=== PATIENT | male | born 1935 | race Caucasian/White ===

== ENCOUNTER 2017-07-14 09:48 | Inpatient (IN) | payer OTHER, MEDICARE ==
[~2017-07-14] VITALS: Ht 177.8 cm; Wt 104.3 kg
[2017-07-14] VITALS (9 sets, daily range): BP systolic 107–200; BP diastolic 71–90; PULSE 34–61; RESP 15–20; TEMP 96.3–98.7; O2SAT 96–98
[~2017-07-14 09:48] MED LIST: AMLO10TA2 PO; ASPI-110 PO; CARV12.52 PO; CENTTAB PO; DOXA1TAB34 PO; ENAL20TA PO; FISH1000; FURO20TA PO; METF-382 PO; ROSU10 PO; VITACAP7 PO; WARF-23 PO
--- NOTE | 2017-07-14 10:23 | PD ---
HPI Chief Complaint: Stroke Alert Time Seen by Provider: 10:05 Travel History International Travel<30 days: No Contact w/Intl Traveler<30days: No History of Present Illness HPI 82yo M with PMH of afib on coumadin, CAD, presents to the ED with c/o slurred speech that started about an hour ago and still not normal. Last normal was 9: 15am. As per significant other, she was talking to him and he was talking normally and then a few minutes later, his speech was slurred. Denies any fever , chest pain, sob, n/v, abdominal pain, focal weakness or numbness. PFSH Past Medical History Hx Anticoagulant Therapy: Yes Arthritis: Yes Autoimmune Disease: No Blood Disorders: No Anxiety: No Depression: No Heart Rhythm Problems: Yes (ATRIAL FIB) Cancer: Yes (SKIN) Cardiac Catheterization: Yes (WITH 2 ANGIOPLASTIES IN 1995) Cardiovascular Problems: Yes High Cholesterol: Yes Chemotherapy: No Chest Pain: Yes Congestive Heart Failure: No Cerebrovascular Accident: No Coronary Artery Disease: Yes Diabetes: Yes (TYPE II) Diminished Hearing: No Endocrine: Yes Gastrointestinal Disorders: Yes (ESOPHAGEAL STRICTURE, ESOPHAGEAL DILITATION X2 ) Glaucoma: No Genitourinary: Yes (URINE RETENTION) Hepatitis: No Hiatal Hernia: Yes Heparin Induced Thrombocytopen: No Hypertension: Yes Immune Disorder: No Implanted Vascular Access Dvce: No Musculoskeletal: Yes (ARTHRITIS) Neurologic: No Psychiatric: No Reproductive: No Respiratory: No (SNORING) Immunizations Current: No Myocardial Infarction: Yes (X 3) Radiation Therapy: No Sickle Cell Disease: No Thyroid Disease: No PNEUMOCCOCAL Vaccine (Year): 2009 Past Surgical History Abdominal Surgery: No AICD: No Cardiac Surgery: Yes (4 VESSEL CABG 2004,ANGIOPLASTIES) Coronary Artery Bypass Graft: Yes (X 4 IN 2004) Ear Surgery: No Endocrine Surgery: No Eye Surgery: No Genitourinary Surgery: Yes (PROSTATE) Gynecologic Surgery: No Neurologic Surgery: No Oral Surgery: Yes (TUMOR REMOVED FROM GUM, TEETH REMOVED) Pacemaker: No Thoracic Surgery: No Other Surgery: Yes Social History Alcohol Use: No Tobacco Use: No (quit 40 years ago) Substance Use: No Allergies-Medications (Allergen,Severity, Reaction): Coded Allergies: *MDRO Multi-Drug Resistant Organism (Unverified Adverse Reaction, Unknown , 08/27/16) Acinetobacter baumannii Reported Meds & Prescriptions Reported Meds & Active Scripts Active Reported Allopurinol 300 Mg Tab 150 Mg PO DAILY Glipizide 5 Mg Tab 5 Mg PO DAILY Take 30 minutes before a meal Metformin ER (Metformin HCl) 1,000 Mg Cyndi 1,000 Mg PO BID With evening meal Crestor (Rosuvastatin Calcium) 10 Mg Tab 10 Mg PO DAILY Amlodipine (Amlodipine Besylate) 10 Mg Tab 10 Mg PO DAILY Carvedilol 12.5 Mg Tab 12.5 Mg PO BID Warfarin 5 Mg Tab 5 Mg PO DAILY Enalapril (Enalapril Maleate) 20 Mg Tab 40 Mg PO DAILY Aspirin 81 (Aspirin) 81 Mg Tabdr 81 Mg PO DAILY Centrum Silver (Multiple Vitamins W/ Minerals) 1 Tab 1 Tab PO DAILY Fish Oil (Garrison-3 Fatty Acids) 1,000 Mg Cap B Complex (B-Complex Vitamins) 1 Cap 1 Cap PO DAILY Doxazosin (Doxazosin Mesylate) 4 Mg Tab 4 Mg PO DAILY Review of Systems Except as stated in HPI: all other systems reviewed are Neg Physical Exam Narrative GENERAL: 82yo M not in distress. SKIN: Focused skin assessment warm/dry. HEAD: Atraumatic. Normocephalic. EYES: Pupils equal and round. No scleral icterus. No injection or drainage. ENT: No nasal bleeding or discharge. Mucous membranes pink and moist. NECK: Trachea midline. No JVD. CARDIOVASCULAR: Regular rate and rhythm. No murmur appreciated. RESPIRATORY: No accessory muscle use. Clear to auscultation. Breath sounds equal bilaterally. GASTROINTESTINAL: Abdomen soft, non-tender, nondistended. MUSCULOSKELETAL: No obvious deformities. No clubbing. No cyanosis. No edema. NEUROLOGICAL: Awake and alert. No obvious cranial nerve deficits. Motor grossly within normal limits. Sensation equal. Visual rendon equal bilaterally. Mild dysarthria. NIH stroke scale 1. PSYCHIATRIC: Appropriate mood and affect; insight and judgment normal. Data Data Last Documented VS Vital Signs Date Time Temp Pulse Resp B/P (MAP) Pulse Ox O2 Delivery O2 Flow Rate FiO2 07/14/17 10:46 48 15 192/83 (119) 07/14/17 10:08 98 21 07/14/17 09:[address] Brain W/O Iv Contrast(Rout) (07/14/17 ) Complete Blood Count With Diff (07/14/17 10:05) Basic Metabolic Panel (Bmp) (07/14/17 10:05) Prothrombin Time / Inr (Pt) (07/14/17 10:05) Act Partial Throm Time (Ptt) (07/14/17 10:05) Blood Glucose (07/14/17 10:05) Electrocardiogram (07/14/17 ) Hydralazine Inj (Apresoline Inj) (07/14/17 10:45) Troponin I (07/14/17 10:46) Nih Stroke Scale - Nihss .On admission and discharge (07/14/17 10:47) Case Management Consult (07/14/17 ) Activity Bed Rest (07/14/17 10:47) Nursing Bedside Swallow Assess .ONCE (07/14/17 10:47) Scd Bilateral/Knee High SAMI.QSHIFT (07/14/17 10:47) Diet Npo (07/14/17 Lunch) Hemoglobin (Hgb) A1c (07/14/17 10:47) Lipid Profile (07/15/17 06:00) Us Carotid Arteries Comp Bilat (07/14/17 ) Mra Brain W/O Contrast (Cow) (07/14/17 ) Mri Brain W/O Contrast (07/14/17 ) Echo 2d Comp With Doppler (07/14/17 ) Resp Oxygen Elia C Titrat 1-4 L (07/14/17 ) ^ Hold Medication (07/14/17 10:47) Sodium Chloride 0.9% Flush (Ns Flush) (07/14/17 21:00) Sodium Chloride 0.9% Flush (Ns Flush) (07/14/17 11:00) Sodium Chlor 0.9% 1000 Ml Inj (Ns 1000 M (07/14/17 10:47) Aspirin Chew (Aspirin Chew) (07/14/17 11:00) Bedside Glucose SAMI.CSUGAR (07/14/17 10:47) ^ Discontinue Insulin Orders (07/14/17 10:47) Insulin Aspart Supplemtl Scale (Novolog (07/14/17 12:00) Dextrose 50% In Ronda (Vial) Inj (D50w (Vi (07/14/17 11:00) Glucagon Inj (Glucagon Inj) (07/14/17 11:00) Consult Rehab Medicine (07/14/17 10:47) Business Developer / Telemetry SAMI.Q8H (07/14/17 10:47) Consult Stroke Navigator (07/14/17 ) Warfarin (Coumadin) (07/14/17 16:00) (Hub Use Only)Inp Phy Cons/Ref (07/14/17 ) Admit To Inpatient (07/14/17 ) Vital Signs (Adult) SAMI.Q4H (07/14/17 11:11) Activity Oob With Assistance (07/14/17 11:11) Business Developer / Telemetry SAMI.Q8H (07/14/17 11:11) Inpatient Certification (07/14/17 ) Admit Order (Ed Use Only) (07/14/17 11:12) Labs Laboratory Tests Test 07/14/17 10:23 White Blood Count 7.3 TH/MM3 Red Blood Count 5.39 MIL/MM3 Hemoglobin 15.0 GM/DL Hematocrit 45.7 % Mean Corpuscular Volume 84.8 FL Mean Corpuscular Hemoglobin 27.9 PG Mean Corpuscular Hemoglobin Concent 32.9 % Red Cell Distribution Width 15.3 % Platelet Count 176 TH/MM3 Mean Platelet Volume 8.4 FL Neutrophils (%) (Auto) 68.8 % Lymphocytes (%) (Auto) 16.7 % Monocytes (%) (Auto) 6.8 % Eosinophils (%) (Auto) 3.6 % Basophils (%) (Auto) 4.1 % Neutrophils # (Auto) 5.0 TH/MM3 Lymphocytes # (Auto) 1.2 TH/MM3 Monocytes # (Auto) 0.5 TH/MM3 Eosinophils # (Auto) 0.3 TH/MM3 Basophils # (Auto) 0.3 TH/MM3 CBC Comment DIFF FINAL Differential Comment Prothrombin Time 31.8 SEC Prothromb Time International Ratio 2.8 RATIO Activated Partial Thromboplast Time 34.3 SEC Blood Urea Nitrogen 22 MG/DL Creatinine 1.20 MG/DL Random Glucose 124 MG/DL Calcium Level 8.7 MG/DL Sodium Level 138 MEQ/L Potassium Level 4.2 MEQ/L Chloride Level 103 MEQ/L Carbon Dioxide Level 27.7 MEQ/L Anion Gap 7 MEQ/L Estimat Glomerular Filtration Rate 58 ML/MIN Troponin I 0.05 NG/ML MDM Medical Decision Making Medical Screen Exam Complete: Yes Emergency Medical Condition: Yes Interpretation(s) EKG: Afib at 48bpm. Similar to prior. Q waves inferior leads. Differential Diagnosis Minor stroke vs. hypoglycemia vs. ICH Narrative Course 82yo M with afib on coumadin and CAD here with slurred speech that started about an hour prior to arrival. Stroke alert was called since pt's symptoms are still there. Discussed with Dr. Del Rosario (neurologist economics consultant) and initially do not feel he is a TPA candidate. However, after he evaluated the patient, felt that there is a very slight drift in right upper extremity and decreased dexterity in right hand. Wants to wait until INR to decide if we should initiate TPA. INR is 2.8, will not give TPA as per Dr. Del Rosario. Blood pressure is also elevated and hydralazine was cancelled because Dr. Del Rosario recommend permissive hypertensive, do not recommend treating the blood pressure unless it is very elevated such as systolic over 200. Labs reviewed, no leukocytosis. Troponin 0.05. BUN mildly elevated at 22. INR 2.8. CT brain showed moderate atherosclerotic vascular calcification, negative for acute process. Discussed with Dr. Gauthier and accepted to his service. Critical Care Narrative Aggregate critical care time was 40 minutes. Time to perform other separately billable procedures was not included in the critical care time. My time did not include minutes spent treating any other patients simultaneously or on activities that did not directly contribute to the patient's treatment. The services I provided to this patient were to treat and/or prevent clinically significant deterioration that could result in: cardiovascular collapse or . I provided critical care services requiring my management, as noted below: Chart data review, documentation time, medication orders and management, vital sign assessments/reviewing monitor data, ordering and reviewing lab tests, ordering and interpreting/reviewing x-rays and diagnostic studies, care of the patient and discussion of the patient with the admitting physicians. Diagnosis Primary Impression: CVA (cerebral vascular accident) Qualified Codes: I63.9 - Cerebral infarction, unspecified Admitting Information Admitting Physician Requests: Admit Rachel Santiago DO Jul 14, 2017 10:23
--- NOTE | 2017-07-14 10:28 | RADRPT ---
EXAM DATE/TIME: 07/14/2017 10:13 [facility] COMPARISON: No previous studies available for comparison. INDICATIONS : Stroke alert. Slurred speech. RADIATION DOSE: 62.71 CTDIvol (mGy) This report was called to Dr. Santiago 1025. MEDICAL HISTORY : Cerebrovascular disease. SURGICAL HISTORY : None. ENCOUNTER: Initial ACUITY: 1 day PAIN SCALE: 0/10 LOCATION: cranial TECHNIQUE: Multiple contiguous axial images were obtained of the head. Using automated exposure control and adj ustment of the mA and/or kV according to patient size, radiation dose was kept as low as reasonably a chievable to obtain optimal diagnostic quality images. DICOM format image data is available electro nically for review and comparison. FINDINGS: CEREBRUM: The ventricles are normal for age. No evidence of midline shift, mass lesion, hemorrhage or acute in farction. No extra-axial fluid collections are seen. POSTERIOR FOSSA: The cerebellum and brainstem are intact. The 4th ventricle is midline. The cerebellopontine angle i s unremarkable. EXTRACRANIAL: The visualized portion of the orbits is intact. SKULL: The calvaria is intact. No evidence of skull fracture. CONCLUSION: Moderate atherosclerotic vascular calcification, negative for acute process. Angel Peraza MD FACR on July 14, 2017 at 10:25 Board Certified Radiologist. This report was verified electronically.
[2017-07-14 10:31] LABS: BASOPHIL # 0.3 TH/MM3 (0-0.2); BASOPHIL % 4.1 % (0.0-2.0); EOSINOPHIL # 0.3 TH/MM3 (0-0.4); EOSINOPHIL % 3.6 % (0.0-4.0); HEMATOCRIT 45.7 % (39.0-51.0); HEMO FLAGS DIFF FINAL; LYMPH % 16.7 % (9.0-44.0); LYMPHOCYTE # 1.2 TH/MM3 (1.0-4.8); MEAN CELL VOLUME 84.8 FL (80.0-100.0); MEAN CORPUSCULAR HEMOGLOBIN 27.9 PG (27.0-34.0); MEAN CORPUSCULAR HGB CONC 32.9 % (32.0-36.0); MONO % 6.8 % (0.0-8.0); NEUT % 68.8 % (16.0-70.0); PLATELET COUNT 176 TH/MM3 (150-450); RED BLOOD COUNT 5.39 MIL/MM3 (4.50-5.90); RED CELL DISTRIBUTION WIDTH 15.3 % (11.6-17.2); WHITE BLOOD COUNT 7.3 TH/MM3 (4.0-11.0)
[2017-07-14] MEDS ORDERED: ALLO300T2 PO (10:36)
[2017-07-14] MEDS ORDERED: GLIP5TAB8 PO (10:36)
[2017-07-14 10:39] LABS: POTASSIUM 4.2 MEQ/L (3.5-5.1)
[2017-07-14 10:42] LABS: BICARBONATE 27.7 MEQ/L (21.0-32.0)
[2017-07-14 10:44] LABS: APTT (PATIENT) 34.3 SEC (24.3-30.1); INTERNATIONAL NORMALIZED RATIO 2.8 RATIO; PROTHROMBIN TIME - PATIENT 31.8 SEC (9.8-11.6)
[2017-07-14] MEDS ORDERED: hydrALAZINE HCL 20 MG/ML VIAL IV PUSH ONE (10:45)
[2017-07-14] MEDS ORDERED: DEXTROSE 50% IN WATER 50 ML VIAL(D50) IV PUSH PRN (11:00)
[2017-07-14] MEDS ORDERED: GLUCAGON 1 MG/ML VIAL OTHER PRN (11:00)
[2017-07-14] MEDS ORDERED: SODIUM CHLORIDE 0.9% FLUSH 5 ML FLUSH IV FLUSH PRN (11:00)
--- NOTE | 2017-07-14 11:13 | MB ---
cc: DINO CHEEMA M.D. DATE OF CONSULTATION: 07/14/2017 REASON FOR CONSULTATION Stroke Alert. HISTORY OF PRESENT ILLNESS Mr. Castillo is an 82-year-old man who has a history of atrial fibrillation and coronary artery disease. He was in his usual state of health until 9:15 this morning when he suddenly developed severe dysarthria. He presented to the ER as a Stroke Alert. The NIH Stroke Scale initially was 1. He denies any focal weakness or numbness, double vision or headache. PAST MEDICAL HISTORY 1. Diabetes. 2. Hyperlipidemia. 3. Coronary artery disease. 4. Coronary artery bypass procedure. 5. Hypertension. MEDICATIONS His medications at home: 1. Coumadin. He states his last INR a week ago was 2.9. 2. Metformin for diabetes. 3. Crestor. 4. Amlodipine. 5. Carvedilol. 6. Enalapril. 7. Aspirin 81 mg daily. 8. Centrum Silver. 9. Fish oil. 10.Doxazosin. 11.Lasix. ALLERGIES MDRO. NEUROLOGIC EXAMINATION VITAL SIGNS: His blood pressure is 190/95, pulse 60, respiratory rate 15, temperature 96 degrees. HIGHER CORTICAL FUNCTIONS: Alert, oriented x3. Speech is very dysarthric but not aphasic. CRANIAL NERVES: Grossly intact. MOTOR EXAM: 5/5 strength bilaterally. He does have diminished fine motor skills in the right hand and a pronator drift right upper extremity. Sensory exam intact. Reflexes 1+ symmetric. There is no Babinski present. IMAGING CT of the brain: No acute changes. He has chronic ischemic change present. LABORATORY INR 2.8, PTT 34.3. White count 7300, hemoglobin 15, hematocrit 45%, platelet count 176,000. Sodium 138, potassium 4.2, chloride 103. EKG EKG: Atrial fibrillation. IMPRESSION Acute stroke, probably left hemisphere. He is not a candidate for IV TPA because of the elevated INR from Coumadin. Because of the low NIH Stroke Scale I would not recommend advanced imaging at this time such as CTA as he is not a candidate for intervention given the minor deficits. RECOMMENDATIONS Continue him on Coumadin as well as aspirin. Will obtain further evaluation with an MRI and MRA of the brain, carotid ultrasound, echocardiogram and lipid panel. Would recommend maintaining head of bed flat for 12 hours. Could also allow permissive hypertension. MD NUBIA Garrett /10:44 AM /11:01 AM
[2017-07-14] MEDS: SODIUM CHLOR 0.9% 1000 ML INJ 1,000 ML IV SCH (11:23)
[2017-07-14] MEDS: ASPIRIN 81 MG CHEW TAB PO SCH (11:25)
[2017-07-14] MEDS: INSULIN ASPART SUPPLEMENTAL SCALE SQ SCH ×3 (12:00→21:00)
[2017-07-14] MEDS ORDERED: ASPIRIN 300 MG SUPP RECTAL ONE (12:15)
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
--- NOTE | 2017-07-14 13:40 | EKG ---
Date Performed: 07/14/2017 Time Performed: 10:45:09 PTAGE: 82 years EKG: ATRIAL FLUTTER WITH SLOW VENTRICULAR RESPONSE POSSIBLE ANTERIOR MYOCARDIAL INFARCTION ABNOR MAL ECG PREVIOUS TRACING : 08/27/2016 10.51 DOCTOR: Tony Lorenzo Interpretating Date/Time 07/14/2017 13:38:41
--- NOTE | 2017-07-14 15:00 | RADRPT ---
EXAM DATE/TIME: 07/14/2017 13:27 [facility] COMPARISON: MRI BRAIN W/O CONTRAST, October 03, 2011, 11:18. INDICATIONS : Stroke. Slurred speech. MEDICAL HISTORY : Hypertension. Carcinoma, prostate. Myocardial infarction. SURGICAL HISTORY : CABG ENCOUNTER: Initial ACUITY: 1 day PAIN SCORE: 0/10 LOCATION: head TECHNIQUE: Multiplanar, multisequence MRI of the brain was performed without contrast. FINDINGS: CEREBRUM: The ventricles are normal for age. No evidence of midline shift, mass lesion, hemorrhage or acute in farction. No extraaxial fluid collections are seen. The pituitary gland and suprasellar cistern are normal in configuration. WHITE MATTER: Moderate periventricular white matter changes are noted. POSTERIOR FOSSA: The cerebellum and brainstem are intact. The 4th ventricle is midline. The cerebellopontine angle is unremarkable. The cerebellar tonsils are normal in position. DIFFUSION IMAGING: No focal areas of restricted diffusion are seen. No evidence of acute infarction. EXTRACRANIAL: The visualized portions of the orbits and paranasal sinuses are unremarkable. CONCLUSION: Moderate periventricular changes. There is no restricted diffusion to suggest acute ischemic event Moderate motion artifact does obscure fine detail on the diffusion-weighted imaging. Angel Peraza MD FACR on July 14, 2017 at 14:57 Board Certified Radiologist. This report was verified electronically.
--- NOTE | 2017-07-14 15:13 | RADRPT ---
EXAM DATE/TIME: 07/14/2017 13:27 [facility] COMPARISON: MRA BRAIN W/O CONTRAST, October 03, 2011, 11:18. INDICATIONS : Stroke. MEDICAL HISTORY : Hypertension. Carcinoma, prostate. Myocardial infarction. SURGICAL HISTORY : CABG ENCOUNTER: Initial ACUITY: 1 day PAIN SCORE: 0/10 LOCATION: head Please note a normal MRA of the brain does not entirely exclude the possibility of a small aneurysm, nor the possibility of distal intracranial vessel disease. TECHNIQUE: 3D time of flight MRA was performed. Source images, multiplanar STS MIP, and 3D volume MIP reconstru ctions were reviewed. FINDINGS: The examination is significantly degraded by motion artifact. There is modest visualization of the major intracranial arteries out to the second-order branch vesse ls. There is no evidence for aneurysm, vessel truncation or stenosis, and no evidence for vascular m alformation. CONCLUSION: 1. No gross abnormality on this limited study. Satya Lilly Jr., MD on July 14, 2017 at 15:03 Board Certified Radiologist. This report was verified electronically.
[2017-07-14] MEDS ORDERED: WARFARIN SOD 5 MG TAB PO SCH (16:00)
[2017-07-14 16:29] LABS: HEMOGLOBIN A1a 1.1 %; HEMOGLOBIN A1b 1.8 %; HEMOGLOBIN Ao 83.8 %; HEMOGLOBIN LA1C 2.3 %; HEMOGLOBIN P3 5.9 %
--- NOTE | 2017-07-14 17:09 | RADRPT ---
EXAM DATE/TIME: 07/14/2017 16:04 [facility] COMPARISON: US CAROTID ARTERIES, October 03, 2011, 19:16. INDICATIONS : Cerebrovascular accident. MEDICAL HISTORY : Hypertension. CAD. Hypercholesterol. CHF. HI SURGICAL HISTORY : Angioplasties. Skin cancer. Esophogeal dilation. CABG. ENCOUNTER: Subsequent ACUITY: 1 day PAIN SCORE: 0/10 LOCATION: Bilateral neck PEAK SYSTOLIC VELOCITIES (cm/sec): ICA/CCA RATIO: Right: 1.2 Left: 1.0 ICA: Right: 89 Left: 69 CCA: Right: 75 Left: 72 ECA: Right: 125 Left: 74 VERTEBRAL: Right: 28 antegrade Left: 41 antegrade Elevated flow velocities and ICA/CCA ratios have been found to correlate with increased degrees of vessel stenosis, calculated as percentage of diameter relative to a normal segment of distal ICA/CCA FINDINGS: RIGHT CAROTID: There is no evidence for a hemodynamically significant carotid stenosis. Minimal int imal hyperplasia is present with scattered calcific plaque. LEFT CAROTID: There is no evidence for a hemodynamically significant carotid stenosis. Minimal inti mal hyperplasia is present with scattered calcific plaque. VERTEBRAL ARTERIES: Flow is antegrade in both vertebral arteries. MISCELLANEOUS: There are no ancillary masses or adenopathy. CONCLUSION: Negative examination for a hemodynamically significant carotid stenosis. Board Certified Radiologist. This report was verified electronically.
--- NOTE | 2017-07-14 17:14 | ECHRPT ---
Indication: cva/tia CONCLUSIONS Technically very difficult and limited study. The left ventricular systolic function appears mildly reduced with an estimated ejection fraction in the range of 45-50%. Normal left ventricular size. Wall thickness is measured at the upper limits of normal. Regional wall motion abnormalities cannot be excluded. The aortic valve is not well visualized. BP: 192 / 83 HR: 119 Rhythm: Sinus MEASUREMENTS (Male / Female) Normal Values Technical Quality:Very technically difficult study 2D ECHO LVOT Diameter 2.1 cm M-MODE LV Diastolic Diameter MM 3.8 cm 4.2 - 5.9 / 3.9 - 5.3 cm LV Systolic Diameter MM 2.9 cm LV Ejection Fraction MM Teich 48.3 % LV Cardiac Index MM Teich 1522.1 cm/minm IVS Diastolic Thickness MM 1.3 cm 0.6 - 1.0 / 0.6 - 0.9 cm LVPW Diastolic Thickness MM 1.3 cm 0.6 - 1.0 / 0.6 - 0.9 cm LV Relative Wall Thickness MM 0.7 0.24 - 0.42 / 0.22 - 0.42 LV Mass Index MM 80.1 g/m 49 - 115 / 43 - 95 g/m Aortic Root Diameter MM 3.7 cm AV Cusp Separation MM 1.9 cm DOPPLER AV Peak Velocity 129.5 cm/s AV Peak Gradient 6.7 mmHg LVOT Peak Velocity 99.7 cm/s LVOT Peak Gradient 4.0 mmHg AV Area Cont Eq pk 2.7 cm MV Area PHT 5.0 cm Mitral E Point Velocity 119.0 cm/s Mitral A Point Velocity 73.1 cm/s Mitral E to A Ratio 1.6 FINDINGS LEFT VENTRICLE The left ventricular systolic function is mildly reduced with an estimated ejection fraction in the range of 45- 50%. Normal left ventricular size. Wall thickness is measured at the upper limits of normal. Regional wall motion abnormalities cannot be excluded. RIGHT VENTRICLE Normal right ventricular size and systolic function. LEFT ATRIUM The left atrial size is normal. RIGHT ATRIUM The right atrial size is normal. ATRIAL SEPTUM Normal atrial septal thickness without atrial level shunting by limited color doppler interrogation. AORTA The aortic root and proximal ascending aorta are normal in size on limited imaging. MITRAL VALVE Structurally normal mitral valve. No mitral valve stenosis or regurgitation. AORTIC VALVE The aortic valve is not well visualized. TRICUSPID VALVE The tricuspid valve is not well visualized. PULMONARY VALVE The pulmonary valve is not well visualized. VESSELS The inferior vena cava is normal in size. PERICARDIUM No pericardial effusion. Wilmer Lundberg MD (Electronically Signed) Final Date:14 July 2017 17:13
[2017-07-14] MEDS: SODIUM CHLORIDE 0.9% FLUSH 5 ML FLUSH IV FLUSH SCH (21:00)
[2017-07-14] MEDS ORDERED: hydrALAZINE HCL 25 MG TAB PO PRN (21:45)
[2017-07-15] VITALS: BP 163/76; PULSE 40; RESP 18; TEMP 98.8; O2SAT 98
[2017-07-15] MEDS: SODIUM CHLOR 0.9% 1000 ML INJ 1,000 ML IV SCH (00:03)
[2017-07-15 04:00] VITALS: BP 179/74; PULSE 40; RESP 16; TEMP 97.8; O2SAT 98
[2017-07-15 08:00] VITALS: BP 165/91; PULSE 40; PULSE 60; RESP 16; TEMP 98.3; O2SAT 98
[2017-07-15] MEDS: INSULIN ASPART SUPPLEMENTAL SCALE SQ SCH ×2 (08:00→12:00)
[2017-07-15] MEDS: ASPIRIN 81 MG CHEW TAB PO SCH (08:54)
[2017-07-15] MEDS: SODIUM CHLORIDE 0.9% FLUSH 5 ML FLUSH IV FLUSH SCH (08:54)
[2017-07-15] MEDS ORDERED: ATORVASTATIN 40 MG TAB PO ONE (11:00)
[2017-07-15] MEDS ORDERED: ALLOPURINOL 300 MG TAB PO SCH (11:00)
[2017-07-15] MEDS ORDERED: PILL SPLITTER OTHER PRN (11:30)
[2017-07-15 11:46] LABS: HDL CHOLESTEROL 31.4 MG/DL (40.0-60.0)
[2017-07-15 12:00] VITALS: BP 164/71; PULSE 60; RESP 18; TEMP 96.7; O2SAT 97
[2017-07-15] MEDS ORDERED: ENALAPRIL MALEATE 10 MG TAB PO SCH (12:00)
[2017-07-15] MEDS ORDERED: DOXAZOSIN MESYLATE 4 MG TAB PO SCH (12:00)
[2017-07-15] MEDS ORDERED: CARVEDILOL 12.5 MG TAB PO SCH (12:00)
[2017-07-15] MEDS ORDERED: ASPI325T PO (12:23)
[2017-07-15] MEDS ORDERED: ATOR40TA16 PO (12:23)
--- NOTE | 2017-07-15 12:24 | HHI.DCPOC ---
Discharge Care Plan Diagnosis: (1) CVA (cerebral vascular accident) Goals to Promote Your Health * To prevent worsening of your condition and complications * To maintain your health at the optimal level Directions to Meet Your Goals Take your medications as prescribed Follow your dietary instruction Follow activity as directed Keep your appointments as scheduled Take your immunizations and boosters as scheduled If your symptoms worsen call your PCP, if no PCP go to Urgent Care Center or Emergency Room Smoking is Dangerous to Your Health. Avoid second hand smoke Call the 24-hour hour crisis hotline for domestic abuse at Herb Gauthier MD Jul 15, 2017 12:24
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
[2017-07-15] MEDS ORDERED: VITAMIN B COMPLEX/VIT C TAB PO SCH (13:00)
[2017-07-15] MEDS ORDERED: CARV12.52 PO (18:56)
== END 2017-07-15 13:58 | disposition home or self-care (01) | DRG 69 ==
LOC: PHED 09:48 → PHEDA 11:12 → PH3B 13:57
PROVIDERS: ADMIT Hospitalist; ATTEND Hospitalist
DX: G45.9 Transient cerebral ischemic attack, unspecified (principal); I48.2 Chronic atrial fibrillation; E11.9 Type 2 diabetes mellitus without complications; Z79.84 Long term (current) use of oral hypoglycemic drugs; Z79.01 Long term (current) use of anticoagulants; Z79.82 Long term (current) use of aspirin; R29.810 Facial weakness; R47.81 Slurred speech; I10 Essential (primary) hypertension; E78.5 Hyperlipidemia, unspecified; K21.9 Gastro-esophageal reflux disease without esophagitis; I25.10 Atherosclerotic heart disease of native coronary artery without angina pectoris; Z95.1 Presence of aortocoronary bypass graft; I25.2 Old myocardial infarction; Z85.46 Personal history of malignant neoplasm of prostate; Z87.891 Personal history of nicotine dependence
CPT/HCPCS: 70450; 70544; 70551; 80048; 80061; 82948; 83036; 84484; 85025; 85610; 85730; 93005; 93306; 93880; J7030

== ENCOUNTER 2017-12-23 21:20 | Inpatient (IN) | payer OTHER, MEDICARE ==
[~2017-12-23] VITALS: Ht 177.8 cm; Wt 110.0 kg
[~2017-12-23 21:20] MED LIST changes: +ALLO300T2 PO; -ASPI-110 PO; +ASPI-183 PO; +ATOR40TA16 PO; -FURO20TA PO; +GLIP5TAB8 PO; -ROSU10 PO
[2017-12-23 21:35] VITALS: BP 219/102; PULSE 69; RESP 18; TEMP 98.4; O2SAT 96
[2017-12-23 21:37] VITALS: BP 219/102; PULSE 62; RESP 20; O2SAT 97
[2017-12-23 21:51] VITALS: BP 223/114; PULSE 64; RESP 20
--- NOTE | 2017-12-23 22:09 | PD ---
HPI Chief Complaint: Head Injury Time Seen by Provider: 21:58 Travel History International Travel<30 days: No Contact w/Intl Traveler<30days: No Traveled to known affect area: No History of Present Illness HPI The patient is a 89-year-old male that fell at approximately 630 PM this afternoon. He was walking his dog and his dog pulled him and started chasing after another dog. He fell forward and was drank 12-15 feet and hit his head on the grass. The patient has abrasions and a slight hematoma on the right forehead. He did not lose consciousness. He denies any nausea or vomiting. He denies any focal neurologic change. He also has neck pain but denies any radiation of pain, numbness or weakness of any weeks his extremities. His last tetanus shot was definitely over 10 years ago. He denies any headache. PFSH Past Medical History Hx Anticoagulant Therapy: Yes Arthritis: Yes Atrial Fibrillation: Yes Autoimmune Disease: No Blood Disorders: No Anxiety: No Depression: No Heart Rhythm Problems: Yes Cancer: Yes (SKIN) Cardiac Catheterization: Yes (WITH 2 ANGIOPLASTIES IN 1995) Cardiovascular Problems: Yes High Cholesterol: Yes Chemotherapy: No Chest Pain: Yes Congestive Heart Failure: No Cerebrovascular Accident: No Coronary Artery Disease: Yes Diabetes: Yes (TYPE II) Diminished Hearing: No Endocrine: Yes Gastrointestinal Disorders: Yes (ESOPHAGEAL STRICTURE, ESOPHAGEAL DILITATION X2 ) Glaucoma: No Genitourinary: Yes (URINE RETENTION) Hepatitis: No Hiatal Hernia: Yes Heparin Induced Thrombocytopen: No Hypertension: Yes Immune Disorder: No Implanted Vascular Access Dvce: No Musculoskeletal: Yes (ARTHRITIS) Neurologic: No Psychiatric: No Reproductive: No Immunizations Current: No Myocardial Infarction: Yes (X 3) Radiation Therapy: No Sickle Cell Disease: No Thyroid Disease: No PNEUMOCCOCAL Vaccine (Year): 2009 Past Surgical History Abdominal Surgery: No AICD: No Cardiac Surgery: Yes (4 VESSEL CABG 2004,ANGIOPLASTIES) Coronary Artery Bypass Graft: Yes (X 4 IN 2004) Ear Surgery: No Endocrine Surgery: No Eye Surgery: No Genitourinary Surgery: Yes (PROSTATE) Gynecologic Surgery: No Insulin Pump: No Neurologic Surgery: No Oral Surgery: Yes (TUMOR REMOVED FROM GUM, TEETH REMOVED) Pacemaker: No Thoracic Surgery: No Other Surgery: Yes Social History Alcohol Use: No Tobacco Use: No (quit 40 years ago) Substance Use: No Allergies-Medications (Allergen,Severity, Reaction): Coded Allergies: No Known Allergies (Unverified Allergy, Unknown, 12/23/17) Reported Meds & Prescriptions Reported Meds & Active Scripts Active Carvedilol 12.5 Mg Tab 12.5 Mg PO BID half tab of 12.5 mg tab by mouth BID Aspirin 325 Mg Tab 325 Mg PO DAILY Atorvastatin (Atorvastatin Calcium) 40 Mg Tab 40 Mg PO HS Reported Allopurinol 300 Mg Tab 150 Mg PO DAILY Glipizide 5 Mg Tab 5 Mg PO DAILY Take 30 minutes before a meal Metformin ER (Metformin HCl) 1,000 Mg Cyndi 1,000 Mg PO DAILY With evening meal Amlodipine (Amlodipine Besylate) 10 Mg Tab 10 Mg PO DAILY Warfarin 5 Mg Tab 5 Mg PO DAILY Enalapril (Enalapril Maleate) 20 Mg Tab 40 Mg PO DAILY Fish Oil ([place]-3 Fatty Acids) 1,000 Mg Cap B Complex (B-Complex Vitamins) 1 Cap 1 Cap PO DAILY Review of Systems Except as stated in HPI: all other systems reviewed are Neg Physical Exam Narrative GENERAL: The patient is alert, oriented 3 in minimal apparent distress with his forehead abrasions. His vital signs show blood pressure 219/102 but are otherwise normal. SKIN: Focused skin assessment warm/dry. The forehead shows several abrasions, no suturable skin laceration is noted. The abrasions are about 3 x 2 cm in size. They are mostly on the right forehead. HEAD: Neither raccoon eyes nor ashford sign is present.. Normocephalic. EYES: Pupils equal and round. No scleral icterus. No injection or drainage. ENT: No nasal bleeding or discharge. Mucous membranes pink and moist. NECK: Trachea midline. No JVD. There is diffuse tenderness over the trapezius bilaterally. No posterior spinous process tenderness or deformity is present. CARDIOVASCULAR: Regular rate and rhythm. No murmur appreciated. RESPIRATORY: No accessory muscle use. Clear to auscultation. Breath sounds equal bilaterally. GASTROINTESTINAL: Abdomen soft, non-tender, nondistended. Hepatic and splenic margins not palpable. MUSCULOSKELETAL: No obvious deformities. No clubbing. No cyanosis. No edema. NEUROLOGICAL: Awake and alert. No obvious cranial nerve deficits. Motor grossly within normal limits. Normal speech. PSYCHIATRIC: Appropriate mood and affect; insight and judgment normal. Data Data Last Documented VS Vital Signs Date Time Temp Pulse Resp B/P (MAP) Pulse Ox O2 Delivery O2 Flow Rate FiO2 12/23/17 22:10 68 20 223/114 (150) 98 12/23/17 21:[address] Brain W/O Iv Contrast(Rout) (12/23/17 21:58) Ct Cerv Spine W/O Contrast (12/23/17 22:04) Enalaprilat Inj (Vasotec Inj) (12/23/17 22:30) Hydralazine Inj (Apresoline Inj) (12/23/17 22:30) Admit Order (Ed Use Only) (12/23/17 23:13) Complete Blood Count With Diff (12/23/17 23:18) Comprehensive Metabolic Panel (12/23/17 23:18) Prothrombin Time / Inr (Pt) (12/23/17 23:18) Act Partial Throm Time (Ptt) (12/23/17 23:18) Urinalysis - C+S If Indicated (12/23/17 23:18) MDM Medical Decision Making Medical Screen Exam Complete: Yes Emergency Medical Condition: Yes Medical Record Reviewed: Yes Interpretation(s) The CT of the cervical spine shows oblique fractures through the C3 vertebral body and the exuberant osteophytes anteriorly at the C2-3 level. Also exuberant fused osteophytes extending from C2-T2 with an articulation at the T1- T2 level. There is acute fracture at the C2-3 level through these osteophytes. The CT brain shows no acute intracranial abnormality, atrophy is seen and frontal scalp hematomas being worse on the right. Differential Diagnosis Scalp hematomas, scalp abrasions, skull fracture, intracranial bleed, fracture C -spine, cervical strain Narrative Course The patient has fracture C2-3. He also has scalp hematomas. I discussed the patient with Dr. Roach, the patient will be transferred to [facility] and admitted to the [facility]. Physician Communication Physician Communication I discussed the patient with Dr. Roach, the patient will be admitted to him. Diagnosis Primary Impression: Cervical spine fracture Additional Impression: Scalp hematoma Moustapha Barrera MD Dec 23, 2017 22:09
[2017-12-23 22:10] VITALS: BP 223/114; PULSE 68; RESP 20; O2SAT 98
[2017-12-23] MEDS ORDERED: ENALAPRILAT 2.5 MG/2 ML VIAL IV PUSH ONE (22:30)
[2017-12-23] MEDS ORDERED: hydrALAZINE HCL 20 MG/ML VIAL IV PUSH ONE ×2 (22:30→23:45)
--- NOTE | 2017-12-23 22:58 | RADRPT ---
EXAM DATE/TIME: 12/23/2017 22:34 [facility] COMPARISON: CT BRAIN W/O CONTRAST, July 14, 2017, 10:13. INDICATIONS : Fell while walking dog. Right frontal hematoma. RADIATION DOSE: 63.59 CTDIvol (mGy) MEDICAL HISTORY : Cardiovascular disease. Hypertension. Diabetes. Anticoagulant therapy. SURGICAL HISTORY : CABG ENCOUNTER: Initial ACUITY: 1 day PAIN SCALE: 3/10 LOCATION: Right frontal TECHNIQUE: Multiple contiguous axial images were obtained of the head. Using automated exposure control and adj ustment of the mA and/or kV according to patient size, radiation dose was kept as low as reasonably a chievable to obtain optimal diagnostic quality images. DICOM format image data is available electro nically for review and comparison. FINDINGS: CEREBRUM: The ventricles and cortical sulci are widened. No evidence of midline shift, mass lesion, hemorrhage or acute infarction. No extra-axial fluid collections are seen. POSTERIOR FOSSA: The cerebellum and brainstem are intact. The 4th ventricle is midline. The cerebellopontine angle i s unremarkable. EXTRACRANIAL: There is hematoma seen in the frontal scalp regions bilaterally being much more prominent on the righ t. The visualized portion of the orbits is intact. SKULL: The calvaria is intact. No evidence of skull fracture. CONCLUSION: 1. No acute intracranial abnormality. 2. Atrophy. 3. Frontal scalp hematomas being worse on the right. Triston Edmondson MD on December 23, 2017 at 22:55 Board Certified Radiologist. This report was verified electronically.
--- NOTE | 2017-12-23 23:09 | RADRPT ---
EXAM DATE/TIME: 12/23/2017 22:34 [facility] COMPARISON: No previous studies available for comparison. INDICATIONS : Fell while walking dog. Right frontal hematoma. RADIATION DOSE: 26.76 CTDIvol (mGy) MEDICAL HISTORY : Cardiovascular disease. Hypertension. Anticoagulant therapy. Diabetes. SURGICAL HISTORY : CABG ENCOUNTER: Initial ACUITY: 1 day PAIN SCALE: 4/10 LOCATION: neck TECHNIQUE: Volumetric scanning of the cervical spine was performed. Multiplanar reconstructions in the sagittal, coronal and oblique axial planes were performed. Using automated exposure control and adjustment o f the mA and/or kV according to patient size, radiation dose was kept as low as reasonably achievable to obtain optimal diagnostic quality images. DICOM format image data is available electronically f or review and comparison. FINDINGS: VERTEBRAE: There is exuberant flowing osteophytes extending from C2-C7. These osteophytes have the appearance th at they are fused from C2 through C7. There is a fracture of this osteophyte at the C3 level. This ex tending from the anterior superior aspect of the C3 vertebral body to the posterior inferior aspect o f the C3 vertebral body. Significant displacement is not seen. The remaining cervical elements appear intact. ALIGNMENT: No evidence of subluxation. C2-C3: The bony spinal canal is normal in size. No evidence of disc bulge or herniation. The neural forami na are bilaterally patent. Facet hypertrophy is seen. There is fusion at the uncovertebral joints. C3-C4: The bony spinal canal is normal in size. No evidence of disc bulge or herniation. The neural forami na are bilaterally patent. Facet hypertrophy is seen. There is fusion at the uncovertebral joints. C4-C5: The distention is decreasing. The bony spinal canal is normal in size. No evidence of disc bulge or herniation. The neural foramina are bilaterally patent. Facet hypertrophy is seen. There is fusion a t the uncovertebral joints. C5-C6: There is posterior osteophytic ridging causing a mild impress on the thecal sac. There is fusion at t he disc level. No evidence of disc bulge or herniation. The neural foramina are bilaterally patent. There is facet hypertrophy. C6-C7: The distance is decreased height. There is mild diffuse disc bulge and posterior osteophytic ridging causing a mild impress on the thecal sac. The anterior osteophytes are very prominent at this level. The neural foramina are bilaterally patent. C7-T1: There is mild posterior osteophytic ridging. There is At the inferior aspect of the exuberant osteoph ytes anterior to the C7 vertebral body. This either reflects a pseudoarticulation between the promine nt spurs in the cervical spine and these spurs at the T1-T2 level. This has a chronic appearance. The neural foramina are bilaterally patent. CONCLUSION: 1. Oblique fracture through the C3 vertebral body and the exuberant osteophytes anteriorly at the C2- 3 level. 2. Exuberant fused osteophytes extending from C2-T2 with an articulation at the T1-T2 level. There is acute fracture at the C2-3 level through these osteophytes. 3. Degenerative change as described above. This information was relayed by telephone to Dr. Barrera. Triston Edmondson MD on December 23, 2017 at 22:56 Board Certified Radiologist. This report was verified electronically.
[2017-12-23 23:18] VITALS: BP 249/108; PULSE 72; RESP 20
[2017-12-23 23:43] VITALS: BP 251/108; PULSE 68; RESP 18
[2017-12-23 23:48] LABS: AUTOMATED NEUTROPHIL # 10.6 TH/MM3 (1.8-7.7); BASOPHIL % 0.3 % (0.0-2.0); EOSINOPHIL # 0.3 TH/MM3 (0-0.4); EOSINOPHIL % 2.2 % (0.0-4.0); HEMATOCRIT 42.9 % (39.0-51.0); HEMOGLOBIN 14.2 GM/DL (13.0-17.0); LYMPH % 8.3 % (9.0-44.0); MEAN CELL VOLUME 84.3 FL (80.0-100.0); MEAN CORPUSCULAR HEMOGLOBIN 27.9 PG (27.0-34.0); MEAN CORPUSCULAR HGB CONC 33.1 % (32.0-36.0); MEAN PLATELET VOLUME 9.8 FL (7.0-11.0); MONO % 4.4 % (0.0-8.0); MONOCYTE # 0.5 TH/MM3 (0-0.9); NEUT % 84.8 % (16.0-70.0); PLATELET COUNT 196 TH/MM3 (150-450); RED BLOOD COUNT 5.09 MIL/MM3 (4.50-5.90); RED CELL DISTRIBUTION WIDTH 15.9 % (11.6-17.2); WHITE BLOOD COUNT 12.4 TH/MM3 (4.0-11.0)
[2017-12-23 23:55] LABS: CHLORIDE 105 MEQ/L (98-107); SODIUM (NA) 138 MEQ/L (136-145)
[2017-12-23 23:58] LABS: BICARBONATE 24.7 MEQ/L (21.0-32.0); CALCIUM 8.6 MG/DL (8.5-10.1)
[2017-12-23 23:59] LABS: BLOOD UREA NITROGEN 27 MG/DL (7-18); GLUCOSE,RANDOM 139 MG/DL (74-106)
[2017-12-24] VITALS (18 sets, daily range): BP systolic 139–243; BP diastolic 56–94; PULSE 48–80; RESP 18–24; TEMP 97.6–97.9; O2SAT 93–98
[2017-12-24] MEDS ORDERED: niCARdipine INJ 25 MG in SODIUM CHLOR 0.9% 250 ML INJ 240 ML IV ONE ×2
[2017-12-24 00:01] LABS: INTERNATIONAL NORMALIZED RATIO 1.7 RATIO; PROTHROMBIN TIME - PATIENT 17.5 SEC (9.8-11.6)
[2017-12-24 00:02] LABS: ALT (GPT) 15 U/L (12-78); AST (GOT) 20 U/L (15-37); GLOMERULAR FILTRATION RATE 45 ML/MIN (>89)
[2017-12-24 00:03] LABS: TOTAL BILIRUBIN ADULT 0.5 MG/DL (0.2-1.0); TOTAL PROTEIN 7.3 GM/DL (6.4-8.2)
[2017-12-24 00:04] LABS: ALKALINE PHOSPHATASE 103 U/L (45-117)
[2017-12-24 00:22] LABS: BILIRUBIN, URINE NEG (NEG); BLOOD, URINE SMALL (NEG); GLUCOSE,URINE NEG (NEG); KETONE, URINE NEG (NEG); NITRITE,URINE NEG (NEG); URINE COLOR YELLOW (YELLW/STRAW); URINE LEUKOCYTE ESTERASE NEG (NEG)
[2017-12-24 00:30] LABS: SQUAMOUS EPITHELIAL CELL URINE 0-5 /hpf (0-5); WBC, URINE 0-2 /hpf (0-5)
[2017-12-24] MEDS ORDERED: GLUCAGON 1 MG/ML VIAL OTHER PRN (00:30)
[2017-12-24] MEDS ORDERED: LACTULOSE SYRUP 20 GM/30 ML CUP PO PRN (00:30)
[2017-12-24] MEDS ORDERED: SODIUM CHLORIDE 0.9% FLUSH 10 ML FLUSH IV FLUSH PRN (00:30)
[2017-12-24] MEDS ORDERED: CALCIUM GLUCONATE INJ 1 GM in SODIUM CHLORIDE 0.9% INJ 100 ML IV PRN (00:30)
[2017-12-24] MEDS ORDERED: ACETAMINOPHEN/HYDROcodone 325 MG/10 MG TAB PO PRN ×2 (00:30)
[2017-12-24] MEDS ORDERED: ZOLPIDEM TARTRATE 5 MG TAB PO PRN (00:30)
[2017-12-24] MEDS ORDERED: cloNIDine HCL 0.1 MG TAB PO PRN (00:30)
[2017-12-24] MEDS ORDERED: MAGNESIUM SULFATE INJ 2 GM in SODIUM CHLORIDE 0.9% INJ 100 ML IV PRN (00:30)
[2017-12-24] MEDS ORDERED: MORPHINE SULFATE 2 MG/ML SYRINGE IV PUSH PRN (00:30)
[2017-12-24] MEDS ORDERED: MAGNESIUM HYDROXIDE SUSP 30 ML CUP PO PRN (00:30)
[2017-12-24] MEDS ORDERED: POTASSIUM CHLOR 20 MEQ PREMIX 100 ML IV PRN (00:30)
[2017-12-24] MEDS ORDERED: PROMETHAZINE INJ 25 MG/ML VIAL IM PRN (00:30)
[2017-12-24] MEDS ORDERED: ACETAMINOPHEN 325 MG TAB PO PRN (00:30)
[2017-12-24] MEDS ORDERED: DEXTROSE 50% IN WATER 50 ML VIAL(D50) IV PUSH PRN (00:30)
[2017-12-24] MEDS ORDERED: ONDANSETRON HCL 4 MG/2 ML VIAL IV PUSH PRN (00:30)
[2017-12-24] MEDS ORDERED: LABETALOL HCL 100 MG/20 ML VIAL IV PUSH PRN (00:30)
[2017-12-24] MEDS ORDERED: RESP: ALBUTEROL 2.5 MG/3 ML NEB (PRN) NEB (00:30)
[2017-12-24] MEDS ORDERED: SENNOSIDES 8.6 MG TAB PO PRN (00:30)
[2017-12-24] MEDS ORDERED: BISACODYL 10 MG SUPP RECTAL PRN (00:30)
[2017-12-24] MEDS ORDERED: ALUMINUM/MAGNESIUM/SIMETH 30 ML CUP PO PRN (00:30)
--- NOTE | 2017-12-24 01:10 | RADRPT ---
EXAM DATE/TIME: 12/24/2017 00:48 [facility] COMPARISON: No previous studies available for comparison. INDICATIONS : Trauma to chest after patient fell today MEDICAL HISTORY : Cardiovascular disease. Hypertension. Diabetes. Anticoagulant therapy SURGICAL HISTORY : CABG. ENCOUNTER: Initial ACUITY: 1 day PAIN SCORE: 0/10 LOCATION: Bilateral chest FINDINGS: Mild basilar interstitial opacities are present and appear chronic. No acute consolidation demonstrat ed. No large effusion seen. No pneumothorax. Heart size within normal limits. Patient has had previous median sternotomy and CABG. CONCLUSION: No acute abnormality demonstrated. Triston Marks MD on December 24, 2017 at 1:06 Board Certified Radiologist. This report was verified electronically.
--- NOTE | 2017-12-24 03:02 | HHI.HP ---
HPI Service Critical Care Medicine Primary Care Physician No Primary Care Physician Admission Diagnosis Fracture C2-3, scalp abrasions Diagnosis: Travel History International Travel<30 Days: No Contact w/Intl Traveler <30 Da: No Traveled to Known Affected Are: No History of Present Illness 89-year-old male that fell at approximately 630 PM this afternoon. He was walking his dog and his dog pulled him and started chasing after another dog. He fell forward and was dragged 12-15 feet and hit his head on the grass. The patient has abrasions and a slight hematoma on the right forehead. He did not lose consciousness. He denies any nausea or vomiting. He denies any focal neurologic change. He also has neck pain but denies any radiation of pain, numbness or weakness of any weeks his extremities. The CT of the head and neck performed in the emergency department shows oblique fracture through the C3 vertebral body, also C2-3 level acute fracture through the osteophytes. No intracranial abnormality, the frontal scalp hematomas worse on the right. Review of Systems Constitutional: DENIES: Diaphoretic episodes, Fatigue, Fever, Weight gain, Weight loss, Chills, Dizziness, Change in appetite, Night Sweats Endocrine: DENIES: Heat/cold intolerance, Polydipsia, Polyuria, Polyphagia Eyes: DENIES: Blurred vision, Diplopia, Eye inflammation, Eye pain, Vision loss , Photosensitivity, Double Vision Ears, nose, mouth, throat: DENIES: Tinnitus, Hearing loss, Vertigo, Nasal discharge, Oral lesions, Throat pain, Hoarseness, Ear Pain, Running Nose, Epistaxis, Sinus Pain, Toothache, Odynophagia Respiratory: DENIES: Apneas, Cough, Snoring, Wheezing, Hemoptysis, Sputum production, Shortness of breath Cardiovascular: DENIES: Chest pain, Palpitations, Syncope, Dyspnea on Exertion , PND, Lower Extremity Edema, Orthopnea, Claudication Gastrointestinal: DENIES: Abdominal pain, Black stools, Bloody stools, Constipation, Diarrhea, Nausea, Vomiting, Difficulty Swallowing, Anorexia Genitourinary: DENIES: Sexual dysfunction, Urinary frequency, Urinary incontinence, Urgency, Hematuria, Dysuria, Nocturia, Penile Discharge, Testicular Pain, Testicular Swelling Musculoskeletal: DENIES: Joint pain, Muscle aches, Stiffness, Joint Swelling, Back pain, Neck pain Integumentary: DENIES: Abnormal pigmentation, Nail changes, Pruritus, Rash Hematologic/lymphatic: DENIES: Bruising, Lymphadenopathy Immunologic/allergic: DENIES: Eczema, Urticaria Neurologic: COMPLAINS OF: Headache, Poor Balance, DENIES: Abnormal gait, Localized weakness, Paresthesias, Seizures, Speech Problems, Tremor Psychiatric: DENIES: Anxiety, Confusion, Mood changes, Depression, Hallucinations, Agitation, Suicidal Ideation, Homicidal Ideation, Delusions Past Family Social History Allergies: Coded Allergies: No Known Allergies (Unverified Allergy, Unknown, 12/23/17) Past Medical History Coronary artery disease A. fib Esophageal strictures Acid reflux Prostate cancer Diabetes mellitus Past Surgical History CABG Esophageal dilatation Partial prostate resection Reported Medications Reported Meds & Active Scripts Active Carvedilol 12.5 Mg Tab 12.5 Mg PO BID half tab of 12.5 mg tab by mouth BID Aspirin 325 Mg Tab 325 Mg PO DAILY Atorvastatin (Atorvastatin Calcium) 40 Mg Tab 40 Mg PO HS Reported Allopurinol 300 Mg Tab 150 Mg PO DAILY Glipizide 5 Mg Tab 5 Mg PO DAILY Take 30 minutes before a meal Metformin ER (Metformin HCl) 1,000 Mg Cyndi 1,000 Mg PO DAILY With evening meal Amlodipine (Amlodipine Besylate) 10 Mg Tab 10 Mg PO DAILY Warfarin 5 Mg Tab 5 Mg PO DAILY Enalapril (Enalapril Maleate) 20 Mg Tab 40 Mg PO DAILY Fish Oil ([place]-3 Fatty Acids) 1,000 Mg Cap B Complex (B-Complex Vitamins) 1 Cap 1 Cap PO DAILY Active Ordered Medications Current Medications Medications (Trade) Dose Ordered Sig/Rekha Route PRN Reason Start Time Stop Time Status Last Admin Dose Admin Nicardipine HCl 25 mg/Sodium Chloride 250 ml @ 50 mls/hr TITRATE PRN IV Blood pressure management 12/24/17 00:30 Allopurinol (Zyloprim) 150 mg DAILY PO 12/24/17 09:00 Amlodipine Besylate (Norvasc) 10 mg DAILY PO 12/24/17 09:00 Atorvastatin Calcium (Lipitor) 40 mg HS PO 12/24/17 21:00 Carvedilol (Coreg) 12.5 mg BID PO 12/24/17 09:00 Enalapril Maleate (Vasotec) 40 mg DAILY PO 12/24/17 09:00 Sodium Chloride (NS Flush) 2 ml UNSCH PRN IV FLUSH FLUSH AFTER USING IV ACCESS 12/24/17 00:30 Sodium Chloride (NS Flush) 2 ml BID IV FLUSH 12/24/17 09:00 Al Hydrox/Mg Hydrox/Simethicone (Mag-Al Plus Susp Liq) 30 ml Q6H PRN PO DYSPEPSIA 12/24/17 00:30 Pantoprazole Sodium (Protonix) 40 mg DAILY PO 12/24/17 09:00 Ondansetron HCl (Zofran Inj) 4 mg Q6H PRN IV PUSH NAUSEA OR VOMITING 12/24/17 00:30 Promethazine HCl (Phenergan Inj) 25 mg Q4H PRN IM NAUSEA OR VOMITING 12/24/17 00:30 Calcium Gluconate 1 gm/Sodium Chloride 110 ml @ 110 mls/hr UNSCH PRN IV SEE LABEL COMMENTS 12/24/17 00:30 Potassium Chloride 100 ml @ 50 mls/hr UNSCH PRN IV POTASSIUM LESS THAN 4 12/24/17 00:30 Magnesium Sulfate 2 gm/Sodium Chloride 104 ml @ 100 mls/hr UNSCH PRN IV MAGNESIUM LESS THAN 2 12/24/17 00:30 Acetaminophen/ Hydrocodone Bitart ([place] 10-325 Mg) 1 tab Q4H PRN PO PAIN SCALE 1 TO 5 12/24/17 00:30 Acetaminophen/ Hydrocodone Bitart ([place] 10-325 Mg) 2 tab Q4H PRN PO PAIN SCALE 6 TO 10 12/24/17 00:30 Morphine Sulfate (Morphine Inj) 2 mg Q2H PRN IV PUSH breakthrough pain> 6 12/24/17 00:30 Labetalol HCl (Trandate Inj) 10 mg Q1H PRN IV PUSH SYS BP GREATER THAN 170 MMHG 12/24/17 00:30 Clonidine (Catapres) 0.1 mg Q6H PRN PO SYS BP GREATER THAN 170 MMHG 12/24/17 00:30 Acetaminophen (Tylenol) 650 mg Q4H PRN PO TEMPERATURE > 101.5 F 12/24/17 00:30 Menthol ([place] Eric) 1 lozenge UNSCH PRN BUCCAL SORE THROAT 12/24/17 00:30 Zolpidem Tartrate (Ambien) 5 mg HS PRN PO INSOMNIA 12/24/17 00:30 Albuterol Sulfate (Albuterol Neb) 2.5 mg Q4HR NEB PRN NEB WHEEZING 12/24/17 00:30 Senna/Docusate Sodium (Breana-Colace) 1 tab BID PO 12/24/17 09:00 Magnesium Hydroxide (Milk Of Magnesia Liq) 30 ml Q12H PRN PO Mild constipation 12/24/17 00:30 Sennosides (Senokot) 17.2 mg Q12H PRN PO Moderate constipation 12/24/17 00:30 Bisacodyl (Dulcolax Supp) 10 mg DAILY PRN RECTAL SEVERE CONSITIPATION/ IF NPO 12/24/17 00:30 Lactulose (Lactulose Liq) 30 ml DAILY PRN PO SEVERE CONSITIPATION / IF PO 12/24/17 00:30 Dextrose (D50w (Vial) Inj) 50 ml UNSCH PRN IV PUSH HYPOGLYCEMIA-SEE COMMENTS 12/24/17 00:30 Glucagon (Glucagon Inj) 1 mg UNSCH PRN OTHER HYPOGLYCEMIA-SEE COMMENTS 12/24/17 00:30 Insulin Human Regular (NovoLIN R SUPPLEMENTAL SCALE) 1 ACHS SLIDING SCALE SQ 12/24/17 08:00 Family History Heart disease in family Social History Reports smoking from his teenage years to his 40s, denies any further smoking. Denies any illicit drug use. Reports very light drinking every few months. Physical Exam Vital Signs Vital Signs Date Time Temp Pulse Resp B/P (MAP) Pulse Ox O2 Delivery O2 Flow Rate FiO2 12/24/17 01:19 74 20 169/69 (102) 12/24/17 00:00 72 243/94 12/23/17 23:43 68 18 251/108 (155) 12/23/17 23:18 72 20 249/108 (155) 12/23/17 23:00 20 98 12/23/17 22:10 68 20 223/114 (150) 98 12/23/17 21:51 64 20 223/114 (150) 12/23/17 21:37 62 20 219/102 (141) 97 12/23/17 21:35 98.4 69 18 219/102 (141) 96 Physical Exam GENERAL: Elderly gentleman, well-nourished, well-developed patient. SKIN: Warm and dry. HEAD: Normocephalic. Hematoma on the right forehead EYES: No scleral icterus. No injection or drainage. NECK: Supple, trachea midline. No JVD or lymphadenopathy. CARDIOVASCULAR: Regular rate and rhythm without murmurs, gallops, or rubs. RESPIRATORY: Breath sounds equal bilaterally. No accessory muscle use. GASTROINTESTINAL: Abdomen soft, non-tender, nondistended. MUSCULOSKELETAL: No cyanosis, or edema. BACK: Nontender without obvious deformity. NEURO EXAM: GCS: 15 Mental Status: The patient is alert and oriented to person, place, and time with normal speech. Cranial Nerves: Visual acuity intact bilaterally. Visual rendon normal in all quadrants. Pupils are round, reactive to light. Extraocular movements are intact without ptosis. Hearing is normal bilaterally. Voice is normal. Tongue protrudes midline and moves symmetrically. Reflexes: Biceps, patellar, and Achilles are 2/4 bilaterally. No clonus. Laboratory Laboratory Tests Test 12/23/17 23:31 12/24/17 00:00 White Blood Count 12.4 Red Blood Count 5.09 Hemoglobin 14.2 Hematocrit 42.9 Mean Corpuscular Volume 84.3 Mean Corpuscular Hemoglobin 27.9 Mean Corpuscular Hemoglobin Concent 33.1 Red Cell Distribution Width 15.9 Platelet Count 196 Mean Platelet Volume 9.8 Neutrophils (%) (Auto) 84.8 Lymphocytes (%) (Auto) 8.3 Monocytes (%) (Auto) 4.4 Eosinophils (%) (Auto) 2.2 Basophils (%) (Auto) 0.3 Neutrophils # (Auto) 10.6 Lymphocytes # (Auto) 1.0 Monocytes # (Auto) 0.5 Eosinophils # (Auto) 0.3 Basophils # (Auto) 0.0 CBC Comment DIFF FINAL Differential Comment Prothrombin Time 17.5 Prothromb Time International Ratio 1.7 Activated Partial Thromboplast Time 28.8 Blood Urea Nitrogen 27 Creatinine 1.50 Random Glucose 139 Total Protein 7.3 Albumin 3.0 Calcium Level 8.6 Alkaline Phosphatase 103 Aspartate Amino Transf (AST/SGOT) 20 Alanine Aminotransferase (ALT/SGPT) 15 Total Bilirubin 0.5 Sodium Level 138 Potassium Level 3.7 Chloride Level 105 Carbon Dioxide Level 24.7 Anion Gap 8 Estimat Glomerular Filtration Rate 45 Urine Color YELLOW Urine Turbidity CLEAR Urine pH 7.0 Urine Specific [place] 1.020 Urine Protein 100 Urine Glucose (UA) NEG Urine Ketones NEG Urine Occult Blood SMALL Urine Nitrite NEG Urine Bilirubin NEG Urine Urobilinogen 0.2 Urine Leukocyte Esterase NEG Urine RBC 3-5 Urine WBC 0-2 Urine Squamous Epithelial Cells 0-5 Urine Bacteria NONE Microscopic Urinalysis Comment CULT NOT INDICATED Result Diagram: 12/23/17 2331 12/23/17 2331 Imaging Last 24 hours Impressions Chest X-Ray 12/24/17 0000 Signed Impressions: Service Date/Time: Sunday, December 24, 2017 00:48 - CONCLUSION: No acute abnormality demonstrated. Triston Marks MD Cervical Spine CT 12/23/174 Signed Impressions: Service Date/Time: November 22:34 - CONCLUSION: 1. Oblique fracture through the C3 vertebral body and the exuberant osteophytes anteriorly at the C2-3 level. 2. Exuberant fused osteophytes extending from C2-T2 with an articulation at the T1-T2 level. There is acute fracture at the C2-3 level through these osteophytes. 3. Degenerative change as described above. This information was relayed by telephone to Dr. Barrera. Triston Edmondson MD Head CT [id number] Signed Impressions: Service Date/Time: November 22:34 - CONCLUSION: 1. No acute intracranial abnormality. 2. Atrophy. 3. Frontal scalp hematomas being worse on the right. Triston Edmondson MD Caprini VTE Risk Assessment Caprini VTE Risk Assessment: Mod/High Risk (score >= 2) Caprini Risk Assessment Model Point Value = 1 Point Value = 2 Point Value = 3 Point Value = 5 Age 41-60 Minor surgery BMI > 25 kg/m2 Swollen legs Varicose veins or History of unexplained or recurrent spontaneous Oral contraceptives or hormone replacement Sepsis (< 1 month) Serious lung disease, including pneumonia (< 1 month) Abnormal pulmonary function Acute myocardial infarction Congestive heart failure (< 1 month) History of inflammatory bowel disease Medical patient at bed rest Age 61-74 Arthroscopic surgery Major open surgery (> 45 min) Laparoscopic surgery (> 45 min) Malignancy Confined to bed (> 72 hours) Immobilizing plaster cast Central venous access Age >= 75 History of VTE Family history of VTE Factor V Leiden Prothrombin [id number] Lupus anticoagulant Anticardiolipin antibodies Elevated serum homocysteine Heparin-induced thrombocytopenia Other congenital or acquired thrombophilia Stroke (< 1 month) Elective arthroplasty Hip, pelvis, or leg fracture Acute spinal cord injury (< 1 month) Prophylaxis Regimen Total Risk Factor Score Risk Level Prophylaxis Regimen 0-1 Low Early ambulation 2 Moderate Order ONE of the following: *Sequential Compression Device (SCD) *Heparin 5000 units SQ BID 3-4 Higher Order ONE of the following medications: *Heparin 5000 units SQ TID *Enoxaparin/Lovenox 40 mg SQ daily (WT < 150 kg, CrCl > 30 mL/min) *Enoxaparin/Lovenox 30 mg SQ daily (WT < 150 kg, CrCl > 10-29 mL/min) *Enoxaparin/Lovenox 30 mg SQ BID (WT < 150 kg, CrCl > 30 mL/min) AND/OR *Sequential Compression Device (SCD) 5 or more Highest Order ONE of the following medications: *Heparin 5000 units SQ TID (Preferred with Epidurals) *Enoxaparin/Lovenox 40 mg SQ daily (WT < 150 kg, CrCl > 30 mL/min) *Enoxaparin/Lovenox 30 mg SQ daily (WT < 150 kg, CrCl > 10-29 mL/min) *Enoxaparin/Lovenox 30 mg SQ BID (WT < 150 kg, CrCl > 30 mL/min) AND *Sequential Compression Device (SCD) Assessment and Plan Assessment and Plan C2-3 fracture -[place] J collar -Management per neurosurgery Coronary artery disease -Hold aspirin for neurosurgical intervention -Continue atorvastatin A. fib -Rate controlled with carvedilol -Hold Coumadin for neurosurgical procedure Acid reflux -Pantoprazole History of prostate cancer -Garcia in place -Supportive care Hypertension -Enalapril -Hydralazine -Nicardipine as needed to keep SBP less than 150 -Carvedilol -Norvasc Diabetes mellitus -Hold p.o. meds while n.p.o. -Insulin sliding DVT GI prophylaxis -Teds and SCDs -Pharmacological DVT prophylaxis per neurosurgery -Currently on hold due to increased INR -Hold Coumadin -Pantoprazole Critical Care: The total critical care time was 35 minutes. Time to perform other separately billable procedures was not included in the critical care time. Hai Hudson MD Dec 24, 2017 03:02
[2017-12-24] MEDS: niCARdipine INJ 25 MG in SODIUM CHLOR 0.9% 250 ML INJ 240 ML IV PRN ×3 (05:25→16:06)
[2017-12-24] MEDS: INSULIN NovoLIN REGULAR SUPPLEMENTAL SCALE SQ SCH ×4 (08:00→20:53)
[2017-12-24] MEDS: DOCUSATE SODIUM 50 MG/SENNA 8.6 MG TAB PO SCH ×2 (09:00→20:40)
[2017-12-24] MEDS: ALLOPURINOL 300 MG TAB PO SCH (09:12)
[2017-12-24] MEDS: CARVEDILOL 12.5 MG TAB PO SCH ×2 (09:12→20:40)
[2017-12-24] MEDS: ENALAPRIL MALEATE 10 MG TAB PO SCH (09:13)
[2017-12-24] MEDS: PANTOPRAZOLE SOD 40 MG DELAYED RELEASE TAB PO SCH (09:13)
[2017-12-24] MEDS: SODIUM CHLORIDE 0.9% FLUSH 10 ML FLUSH IV FLUSH SCH ×2 (09:16→20:40)
--- NOTE | 2017-12-24 11:04 | EKG ---
Date Performed: 12/24/2017 Time Performed: 00:47:14 PTAGE: 82 years EKG: Rhythm is likely atrial flutter with a controlled response Ventricular couplets are noted P OSSIBLE ANTERIOR MYOCARDIAL INFARCTION MODERATE T-WAVE ABNORMALITY, CONSIDER INFERIOR ISCHEMIA ABNORM AL ECG PREVIOUS TRACING : 07/14/2017 10.45 Low voltage. Compared to the prior study, there are prematu re ventricular couplets noted. DOCTOR: Dinh Martin Interpretating Date/Time 12/24/2017 11:02:35
--- NOTE | 2017-12-24 14:42 | RADRPT ---
EXAM DATE/TIME: 12/24/2017 13:37 [facility] COMPARISON: CT CERVICAL SPINE W/O CONTRAST, December 23, 2017, 22:34. INDICATIONS : Patient with neck pain and C3 fracture after fall.. MEDICAL HISTORY : Hypertension. SURGICAL HISTORY : CABG Colon resection. Turp. ENCOUNTER: Initial ACUITY: 2 day PAIN SCORE: 4/10 LOCATION: neck. TECHNIQUE: Multiplanar, multisequence MRI examination of the cervical spine was performed. FINDINGS: The sagittal reconstructions again demonstrate the known oblique fracture extending through the C3 ve rtebral body and through an area of anterior bridging osteophyte. There is surrounding marrow edema. There is only minimal distraction of the fracture fragments. The other vertebral bodies are intact. E xuberant bridging anterior osteophyte formation is noted from the C2-C6 level. There is minimal resid ual disc material at C4-5 and C5-6 levels. Degenerative disc changes are present greatest at the C6-7 level with dictation, disc space narrowing, anterior spurring and small anterior extradural defect. There is soft tissue swelling in the prevertebral soft tissues from the dens down to C5. The cervical cord is normal in size, shape and signal intensity. There is no evidence of epidural hem atoma. The alignment is anatomic. The axial images demonstrate a disc osteophyte complex at C5-6 with mass effect on the anterior theca l sac but no mass effect upon the cord. There is a disc osteophyte complex also noted at the C6-7 lev el with mild mass effect on the adjacent thecal sac and no mass effect on the cord. CONCLUSION: Oblique fracture again noted through the C3 vertebral body and anterior bridging oste ophyte with marrow edema and no retropulsion. No extradural fluid collections or hematoma identified. There is antegrade vertebral soft tissue swelling. The cervical cord is intact. True Feliz MD on December 24, 2017 at 14:33 Board Certified Radiologist. This report was verified electronically.
--- NOTE | 2017-12-24 14:51 | HHI.CCPN ---
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 I guess he was transferred to medicine rather than surgery due to complexity of his past medical history and comorbidities including Coumadin use Patient has complex medical history including coronary artery disease, hypertension, atrial fibrillation and diabetes mellitus Prostate cancer and COPD Patient was on Coumadin 24 Hour Review/Hospital Course 12/24/2017 Patient has been hemodynamically stable since the arrival Neurologically intact C-collar in place Bilateral breath sounds decreased over the both lung rendon consistent with COPD Patient is in chronic A. fib For spine MRI today and will order cardiac echo to assess patient's cardiac function. In best case scenario this patient would need to have cervical fusion however due to age and medical issues he may not be candidate for the same On the other hand halo placement is also associated with decline because patient 's general will lay in bed and developed pneumonia infections and this can lead to their demise Therefore there is no good answer here except the workup the patient and assess for the surgical risk and then decide one way or the other Objective Vital Signs Date Time Temp Pulse Resp B/P (MAP) Pulse Ox O2 Delivery O2 Flow Rate FiO2 12/24/17 12:00 48 12/24/17 12:00 97.6 21 149/67 (94) 98 12/24/17 07:00 Nasal Cannula 2.00 12/24/17 03:00 97 Intake and Output 12/24/17 12/24/17 12/25/17 08:00 16:00 00:00 Intake Total 280 ml Output Total 1200 ml Balance -920 ml Result Diagram: 12/23/17 2331 12/23/17 2331 Imaging Last 24 hours Impressions Chest X-Ray 12/24/17 0000 Signed Impressions: Service Date/Time: Sunday, December 24, 2017 00:48 - CONCLUSION: No acute abnormality demonstrated. Triston Marks MD Cervical Spine CT 12/23/174 Signed Impressions: Service Date/Time: November 22:34 - CONCLUSION: 1. Oblique fracture through the C3 vertebral body and the exuberant osteophytes anteriorly at the C2-3 level. 2. Exuberant fused osteophytes extending from C2-T2 with an articulation at the T1-T2 level. There is acute fracture at the C2-3 level through these osteophytes. 3. Degenerative change as described above. This information was relayed by telephone to Dr. Barrera. Triston Edmondson MD Head CT 12/23/17 [id number] Signed Impressions: Service Date/Time: November 22:34 - CONCLUSION: 1. No acute intracranial abnormality. 2. Atrophy. 3. Frontal scalp hematomas being worse on the right. Triston Edmondson MD Exam MANAGER LPN Neurologically intact awake Hemodynamic/Cardiac Hemodynamically stable chronic A. fib Pulmonary/Respiratory Bilateral good breath sounds decreased over the both lungs rendon due to moderate COPD Abdomen/GI Nutrition Abdomen soft Renal/I&O Renal function slightly impaired with decreased GFR in increased creatinine but this is treatable with some fluids and good volume hydration Assessment and Plan Attestation Critical care time 38 minute Jenny Snow MD Dec 24, 2017 14:51
[2017-12-24 17:05] LABS: HEMATOCRIT 42.8 % (39.0-51.0); HEMOGLOBIN 14.5 GM/DL (13.0-17.0); MEAN CORPUSCULAR HEMOGLOBIN 28.9 PG (27.0-34.0); MEAN PLATELET VOLUME 8.4 FL (7.0-11.0); PLATELET COUNT 180 TH/MM3 (150-450); RED BLOOD COUNT 5.03 MIL/MM3 (4.50-5.90); WHITE BLOOD COUNT 10.6 TH/MM3 (4.0-11.0)
--- NOTE | 2017-12-24 17:09 | MB ---
cc: John Roach MD DATE: 12/24/2017 REASON FOR CONSULTATION: C3 vertebral body fracture. HISTORY OF PRESENT ILLNESS: An 82-year-old gentleman, who presented to [facility] Emergency Room last evening after he was dragged by his large dog, was chasing another dog, fell forward and was dragged about 15 feet with his head on the grass. He denies loss of consciousness. He complains of neck pain, but denies any radiation to the upper or lower extremities. He has chronic low back pain. The CT scan of the cervical spine obtained reveals what appears to be an ankylosing spondylitis. Fusion extends from C2-C7 level with anterior osteophytes and fusion as well as facet fusion. There is a fracture that extends from the inferior aspect of the C2 vertebral body anterior osteophyte through the mid body of the C3 and also involving the right C3 facet consistent with an ankylosing spondylitis break. He was maintained in a cervical collar and transferred to [facility] main intensive care unit for further management. Overnight, he has not had any change in symptoms. He denies feeling lightheaded or dizzy either prior to or subsequent to this fall. He was very hypertensive in the emergency room and was placed on a Cardene drip after p.r.n. IV medications were not effective in controlling his hypertension. He is also on Coumadin for his atrial fibrillation. CT of the head is negative for any intracranial abnormality. PAST MEDICAL HISTORY: Chronic atrial fibrillation, on Coumadin, coronary artery disease, status post coronary artery bypass grafting, esophageal strictures with multiple attempts at esophageal dilatation with chronic dysphagia and some hoarseness, prostate cancer status post prostatectomy, diabetes mellitus, gastroesophageal reflux, gout and hypertension. MEDICATIONS: 1. Allopurinol 150 mg daily. 2. Amlodipine 10 mg daily. 3. Aspirin 325 mg daily. 4. Atorvastatin 40 mg at bedtime. 5. Vitamin B. 6. Carvedilol 12.5 mg b.i.d. 7. Enalapril 40 mg daily. 8. Glipizide 5 mg daily. 9. Metformin 1000 mg daily. 10. Fish oil 1000 mg daily. 11. Coumadin 5 mg daily. ALLERGIES. NO KNOWN DRUG ALLERGY. SOCIAL HISTORY: He is a . He is a former smoker. He drinks alcohol on occasional basis. He quit smoking 40 years ago. FAMILY HISTORY: Positive for coronary artery disease. REVIEW OF SYSTEMS: Positive for neck pain. Denies any numbness or paresthesias in the upper or lower extremities. No fevers or fatigue, no recent weight gain or weight loss. No chills, night sweats or change in appetite. No cold or heat intolerance. No double vision or blurred vision. No lightheadedness or dizziness. Complains of dyspnea with exertion and is not very ambulatory, although denies any chest pain or palpitations. Denies any abdominal pain or any nausea, vomiting or any bloody stools. Denies any productive cough. Complains of unsteadiness in his gait at times. Complains of easy bleeding and bruising related to Coumadin therapy. Otherwise, review of systems is negative for the rest of systems. LABORATORY DATA: White blood cell count 12.4, hemoglobin 14.2, platelet count 196. PT 17.5, INR 1.7, PTT 28.8. Sodium 138, potassium 3.7, BUN 27, creatinine 1.5, glucose 139. PHYSICAL EXAMINATION: VITAL SIGNS: Temperature 97.6, pulse is 74, respiratory rate 23, blood pressure 155/78, oxygen saturations 93% on 2 L nasal cannula. HEENT: Head is a right frontal scalp superficial abrasion with a subgaleal hemorrhage. Right periorbital ecchymosis. NECK: Maintained in a [place] hard collar with midline trachea. No swelling. CHEST: Clear bilaterally. HEART: Irregular rhythm. No murmurs. ABDOMEN: Soft, nontender. No hepatosplenomegaly. EXTREMITIES: No obvious deformities. He has chronic venous stasis changes in the lower extremities. SKIN: Some ecchymotic deformities in upper extremities and venous stasis and peripheral vascular changes in the lower extremities. GENERAL: This is an elderly, pleasant gentleman, who is lying in bed in the intensive care unit in no acute distress. NEUROLOGIC: He is awake, alert. Pupils equal, reactive. Extraocular muscles intact. Face is symmetric. His speech is dysarthric. Tongue is midline. He moves upper and lower extremities with good strength. Negative Babinski. Light sensation is intact bilaterally. IMPRESSION: 1. C3 ankylosing spondylitis fracture extending through the anterior to posterior aspect of vertebral body as well as right-sided facet. This is an unstable fracture. 2. Chronic dysphagia with esophageal strictures, despite multiple esophageal dilation attempts, along with some hoarseness. 3. Chronic atrial fibrillation, on Coumadin therapy. 4. Coronary artery disease, status post coronary artery bypass grafting with complaints of dyspnea with exertion. 5. Diabetes mellitus. 6. Unregulated hypertension. PLAN: The patient will be maintained in a hard cervical collar. We will obtain a cervical spine MRI scan to assess for soft tissue injury or any associated stenosis. Depending on his overall cardiac condition, we will need to contemplate whether this C3 unstable fracture can be treated with a collar/halo versus a cervical fusion. His risk for complication in either case is in the moderate to high range given his extensive comorbidities. Place on insulin sliding scale coverage. Continue with Cardene drip for hypertension regulation. Out of bed with physical therapy to prevent deconditioning. Further cardiac evaluation/workup including echocardiogram and may need cardiac clearance also for any anticipated cervical spine surgery. His Coumadin will also be withheld to correct his PT/INR in anticipation of any intervention. We discussed the findings and plan with the charge coordinator and trauma surgery. MD CARMEN Pantoja/WILLIAM , 04:34 PM , 05:08 PM
[2017-12-24 17:13] LABS: INTERNATIONAL NORMALIZED RATIO 1.9 RATIO; PROTHROMBIN TIME - PATIENT 19.3 SEC (9.8-11.6)
[2017-12-24 17:30] LABS: BICARBONATE 27.4 MEQ/L (21.0-32.0); CALCIUM 8.6 MG/DL (8.5-10.1); CREATININE 1.39 MG/DL (0.60-1.30); MAGNESIUM 1.9 MG/DL (1.5-2.5)
[2017-12-24 17:31] LABS: PHOSPHORUS 2.9 MG/DL (2.5-4.9)
--- NOTE | 2017-12-24 17:37 | ECHRPT ---
Indication: CAD CONCLUSIONS The left ventricular systolic function is low normal with an estimated ejection fraction in the rang e of 50- 55%. Mild concentric left ventricular hypertrophy. Normal left ventricular size. The left atrial size is mildly dilated. Mitral annular calcification is present. Trace mitral valve regurgitation. Moderate thickening of the aortic valve leaflets. The pulmonary valve is not well visualized. BP: 108 / 61 HR: 61 Rhythm: MEASUREMENTS (Male / Female) Normal Values Technical Quality:Technically difficult study 2D ECHO LV Diastolic Diameter PLAX 5.4 cm 4.2 - 5.9 / 3.9 - 5.3 cm LV Systolic Diameter PLAX 4.0 cm IVS Diastolic Thickness 1.3 cm 0.6 - 1.0 / 0.6 - 0.9 cm LVPW Diastolic Thickness 1.3 cm 0.6 - 1.0 / 0.6 - 0.9 cm LV Relative Wall Thickness 0.5 RV Internal Dim ED PLAX 4.3 cm LVOT Diameter 2.2 cm LA Systolic Diameter LX 4.4 cm 3.0 - 4.0 / 2.7 - 3.8 cm M-MODE Aortic Root Diameter MM 3.2 cm LA Systolic Diameter MM 4.5 cm LA Ao Ratio MM 1.4 AV Cusp Separation MM 2.0 cm DOPPLER AV Peak Velocity 170.5 cm/s AV Peak Gradient 11.6 mmHg LVOT Peak Velocity 120.0 cm/s LVOT Peak Gradient 5.8 mmHg AV Area Cont Eq pk 2.7 cm MV Area PHT 3.6 cm Mitral E Point Velocity 102.3 cm/s Mitral A Point Velocity 85.9 cm/s Mitral E to A Ratio 1.2 LV E' Lateral Velocity 10.8 cm/s Mitral E to LV E' Lateral Ratio 9.5 LV E' Septal Velocity 9.8 cm/s Mitral E to LV E' Septal Ratio 10.4 FINDINGS LEFT VENTRICLE The left ventricular systolic function is low normal with an estimated ejection fraction in the rang e of 50- 55%. Mild concentric left ventricular hypertrophy. Normal left ventricular size. RIGHT VENTRICLE Normal right ventricular size and systolic function. LEFT ATRIUM The left atrial size is mildly dilated. RIGHT ATRIUM The right atrial size is normal. ATRIAL SEPTUM Normal atrial septal thickness without atrial level shunting by limited color doppler interrogation. AORTA The aortic root and proximal ascending aorta are normal in size on limited imaging. MITRAL VALVE Mitral annular calcification is present. Trace mitral valve regurgitation. AORTIC VALVE Moderate thickening of the aortic valve leaflets. TRICUSPID VALVE Structurally normal tricuspid valve. No tricuspid valve stenosis or regurgitation. PULMONARY VALVE The pulmonary valve is not well visualized. VESSELS The inferior vena cava is normal in size. PERICARDIUM No pericardial effusion. Tony Lorenzo MD, FACC (Electronically Signed) Final Date:24 December 2017 17:36
[2017-12-24] MEDS: ATORVASTATIN 40 MG TAB PO SCH (20:40)
[2017-12-25] VITALS (11 sets, daily range): BP systolic 111–167; BP diastolic 54–79; PULSE 40–96; RESP 13–22; TEMP 97.1–97.9; O2SAT 92–98
[2017-12-25 05:47] LABS: AUTOMATED NEUTROPHIL # 7.7 TH/MM3 (1.8-7.7); BASOPHIL # 0.1 TH/MM3 (0-0.2); BASOPHIL % 0.6 % (0.0-2.0); EOSINOPHIL # 0.3 TH/MM3 (0-0.4); EOSINOPHIL % 3.2 % (0.0-4.0); HEMATOCRIT 40.3 % (39.0-51.0); HEMOGLOBIN 13.4 GM/DL (13.0-17.0); LYMPH % 9.8 % (9.0-44.0); LYMPHOCYTE # 0.9 TH/MM3 (1.0-4.8); MEAN CELL VOLUME 84.4 FL (80.0-100.0); MEAN CORPUSCULAR HEMOGLOBIN 28.1 PG (27.0-34.0); MEAN CORPUSCULAR HGB CONC 33.3 % (32.0-36.0); MEAN PLATELET VOLUME 9.4 FL (7.0-11.0); MONO % 6.6 % (0.0-8.0); MONOCYTE # 0.6 TH/MM3 (0-0.9); NEUT % 79.8 % (16.0-70.0); PLATELET COUNT 196 TH/MM3 (150-450); RED BLOOD COUNT 4.78 MIL/MM3 (4.50-5.90); RED CELL DISTRIBUTION WIDTH 15.9 % (11.6-17.2); WHITE BLOOD COUNT 9.6 TH/MM3 (4.0-11.0)
[2017-12-25 05:51] LABS: PROTHROMBIN TIME - PATIENT 20.1 SEC (9.8-11.6)
[2017-12-25 06:11] LABS: BICARBONATE 26.1 MEQ/L (21.0-32.0); CALCIUM 8.7 MG/DL (8.5-10.1); CREATININE 1.56 MG/DL (0.60-1.30); MAGNESIUM 2.1 MG/DL (1.5-2.5)
[2017-12-25] MEDS: INSULIN NovoLIN REGULAR SUPPLEMENTAL SCALE SQ SCH ×4 (08:00→21:00)
[2017-12-25] MEDS: SODIUM CHLORIDE 0.9% FLUSH 10 ML FLUSH IV FLUSH SCH ×2 (09:13→21:00)
[2017-12-25] MEDS: DOCUSATE SODIUM 50 MG/SENNA 8.6 MG TAB PO SCH ×2 (09:13→23:05)
[2017-12-25] MEDS: PANTOPRAZOLE SOD 40 MG DELAYED RELEASE TAB PO SCH (09:15)
[2017-12-25] MEDS: ENALAPRIL MALEATE 10 MG TAB PO SCH (09:15)
[2017-12-25] MEDS: CARVEDILOL 12.5 MG TAB PO SCH ×2 (09:16→23:05)
[2017-12-25] MEDS: ALLOPURINOL 300 MG TAB PO SCH (09:18)
--- NOTE | 2017-12-25 12:14 | HHI.NSPN ---
(Farhan Castillo) History Chief Complaint: Slight pain to the neck (Farhan Castillo) Interval History 12/24: An 82-year-old gentleman, who presented to [facility] Emergency Room last evening after he was dragged by his large dog, was chasing another dog, fell forward and was dragged about 15 feet with his head on the grass. He denies loss of consciousness. He complains of neck pain, but denies any radiation to the upper or lower extremities. He has chronic low back pain. The CT scan of the cervical spine obtained reveals what appears to be an ankylosing spondylitis. Fusion extends from C2-C7 level with anterior osteophytes and fusion as well as facet fusion. There is a fracture that extends from the inferior aspect of the C2 vertebral body anterior osteophyte through the mid body of the C3 and also involving the right C3 facet consistent with an ankylosing spondylitis break. He was maintained in a cervical collar and transferred to [facility] main intensive care unit for further management. Overnight, he has not had any change in symptoms. He denies feeling lightheaded or dizzy either prior to or subsequent to this fall. He was very hypertensive in the emergency room and was placed on a Cardene drip after p.r.n. IV medications were not effective in controlling his hypertension. He is also on Coumadin for his atrial fibrillation. CT of the head is negative for any intracranial abnormality. 12/25: The patient is sitting up in the chair when seen this afternoon. The only time he has pain to the back of the neck is if he will move it some, then he will have a little pain that lasts for a brief time and resolves on its own. He denies any continuous midline neck pain. He denies any headache or dizziness. He has no pain, numbness or tingling to the extremities. He is neurologically intact when examined. (Farhan Castillo) Exam Results 12/23/17 12/23/17 12/24/17 12/24/17 12/25/17 12/25/17 06:00 18:00 06:00 18:00 06:00 18:00 Intake Total 280 ml 550 ml 240 ml Output Total 200 ml 1550 ml 400 ml Balance 80 ml -1000 ml -160 ml Intake Oral 30 ml 50 ml 240 ml IV Total 250 ml 500 ml Output Urine Total 200 ml 1550 ml 400 ml # Voids 1 # Bowel Movements 0 1 0 Vital Signs Date Time Temp Pulse Resp B/P (MAP) Pulse Ox O2 Delivery O2 Flow Rate FiO2 12/25/17 10:00 58 12/25/17 08:00 97.2 58 20 143/66 (91) 96 12/25/17 08:00 58 12/25/17 07:00 96 Room Air 12/25/17 06:00 64 12/25/17 04:00 97.9 60 22 111/54 (73) 94 12/25/17 04:00 60 12/25/17 02:00 60 12/25/17 00:00 59 12/25/17 00:00 97.9 59 21 156/71 (99) 94 12/24/17 22:00 59 12/24/17 20:00 59 12/24/17 20:00 97.9 59 22 142/65 (90) 97 12/24/17 19:00 98 Room Air 12/24/17 18:00 58 12/24/17 16:06 70 155/94 12/24/17 16:00 97.8 64 20 154/68 (96) 97 12/24/17 16:00 64 12/24/17 14:00 62 12/24/17 12:00 48 12/24/17 12:00 97.6 61 21 149/67 (94) 98 12/24/17 10:57 61 164/79 12/24/17 10:00 48 12/24/17 08:00 97.6 74 23 155/78 (103) 93 12/24/17 08:00 74 12/24/17 07:00 97 Nasal Cannula 2.00 12/24/17 06:00 70 12/24/17 05:25 69 161/69 12/24/17 04:00 80 12/24/17 04:00 97.7 70 24 139/63 (88) 94 12/24/17 03:00 Nasal Cannula 2.00 97 12/24/17 02:05 80 20 165/56 (92) 98 12/24/17 02:00 78 20 170/67 (101) 98 12/24/17 01:30 70 20 178/58 (98) 12/24/17 01:19 74 20 169/69 (102) 12/24/17 01:00 76 20 185/74 (111) 97 12/24/17 00:30 80 208/78 (121) 12/24/17 00:15 70 18 243/92 (142) 98 2.00 12/24/17 00:00 80 20 220/94 (136) 12/24/17 00:00 72 243/94 12/23/17 23:43 68 18 251/108 (155) 12/23/17 23:18 72 20 249/108 (155) 12/23/17 23:00 20 98 12/23/17 22:10 68 20 223/114 (150) 98 12/23/17 21:51 64 20 223/114 (150) 12/23/17 21:37 62 20 219/102 (141) 97 12/23/17 21:35 98.4 69 18 219/102 (141) 96 (Farhan Castillo) Physical Examination GENERAL: The patient is awake & alert sitting up in the chair watching TV. His affect is normal. He readily interacts. No apparent distress. HEENT: Right frontal scalp & forehead contusion/haematoma w/abrasion. Right periorbital ecchymosis. NECK: [place] cervical collar in place. Mild TTP to the upper cervical spine. Neck soft & supple. No JVD. Trachea midline. MUSCULOSKELETAL: Extremities NTTP. JOSHI spontaneously & purposefully. No evident clubbing or deformity. NEUROLOGIC: AAOx3. Speech clear & appropriate. Follows commands w/o difficulty. Sensation intact to light touch to all extremities. Motor strength is 5/5 to all major flexion & extension muscle groups of the extremities, to include the wrist flexors & extensors and hand intrinsics & extrinsics. (Farhan Castillo) Lab, Micro, Other Results Recent Impressions Chest X-Ray 12/24/17 0000 Signed Impressions: Service Date/Time: Sunday, December 24, 2017 00:48 - CONCLUSION: No acute abnormality demonstrated. Triston Mraks MD Cervical Spine MRI 12/24/17 0000 Signed Impressions: Service Date/Time: Sunday, December 24, 2017 13:37 - CONCLUSION: Oblique fracture again noted through the C3 vertebral body and anterior bridging osteophyte with marrow edema and no retropulsion. No extradural fluid collections or hematoma identified. There is antegrade vertebral soft tissue swelling. The cervical cord is intact. True Feliz MD Cervical Spine CT 12/23/174 Signed Impressions: Service Date/Time: November 22:34 - CONCLUSION: 1. Oblique fracture through the C3 vertebral body and the exuberant osteophytes anteriorly at the C2-3 level. 2. Exuberant fused osteophytes extending from C2-T2 with an articulation at the T1-T2 level. There is acute fracture at the C2-3 level through these osteophytes. 3. Degenerative change as described above. This information was relayed by telephone to Dr. Barrera. Triston Edmondson MD Head CT 12/23/178 Signed Impressions: Service Date/Time: November 22:34 - CONCLUSION: 1. No acute intracranial abnormality. 2. Atrophy. 3. Frontal scalp hematomas being worse on the right. Triston Edmondson MD Laboratory Tests Test 12/23/17 23:31 12/24/17 00:00 12/24/17 03:00 12/24/17 16:57 White Blood Count 12.4 TH/MM3 10.6 TH/MM3 Red Blood Count 5.09 MIL/MM3 5.03 MIL/MM3 Hemoglobin 14.2 GM/DL 14.5 GM/DL Hematocrit 42.9 % 42.8 % Mean Corpuscular Volume 84.3 FL 85.0 FL Mean Corpuscular Hemoglobin 27.9 PG 28.9 PG Mean Corpuscular Hemoglobin Concent 33.1 % 34.0 % Red Cell Distribution Width 15.9 % 16.0 % Platelet Count 196 TH/MM3 180 TH/MM3 Mean Platelet Volume 9.8 FL 8.4 FL Neutrophils (%) (Auto) 84.8 % Lymphocytes (%) (Auto) 8.3 % Monocytes (%) (Auto) 4.4 % Eosinophils (%) (Auto) 2.2 % Basophils (%) (Auto) 0.3 % Neutrophils # (Auto) 10.6 TH/MM3 Lymphocytes # (Auto) 1.0 TH/MM3 Monocytes # (Auto) 0.5 TH/MM3 Eosinophils # (Auto) 0.3 TH/MM3 Basophils # (Auto) 0.0 TH/MM3 CBC Comment DIFF FINAL Differential Comment Prothrombin Time 17.5 SEC 19.3 SEC Prothromb Time International Ratio 1.7 RATIO 1.9 RATIO Activated Partial Thromboplast Time 28.8 SEC 29.2 SEC Blood Urea Nitrogen 27 MG/DL 23 MG/DL Creatinine 1.50 MG/DL 1.39 MG/DL Random Glucose 139 MG/DL 147 MG/DL Total Protein 7.3 GM/DL Albumin 3.0 GM/DL Calcium Level 8.6 MG/DL 8.6 MG/DL Alkaline Phosphatase 103 U/L Aspartate Amino Transf (AST/SGOT) 20 U/L Alanine Aminotransferase (ALT/SGPT) 15 U/L Total Bilirubin 0.5 MG/DL Sodium Level 138 MEQ/L 140 MEQ/L Potassium Level 3.7 MEQ/L 3.6 MEQ/L Chloride Level 105 MEQ/L 105 MEQ/L Carbon Dioxide Level 24.7 MEQ/L 27.4 MEQ/L Anion Gap 8 MEQ/L 8 MEQ/L Estimat Glomerular Filtration Rate 45 ML/MIN 49 ML/MIN Urine Color YELLOW Urine Turbidity CLEAR Urine pH 7.0 Urine Specific [place] 1.020 Urine Protein 100 mg/dL Urine Glucose (UA) NEG mg/dL Urine Ketones NEG mg/dL Urine Occult Blood SMALL Urine Nitrite NEG Urine Bilirubin NEG Urine Urobilinogen 0.2 MG/DL Urine Leukocyte Esterase NEG Urine RBC 3-5 /hpf Urine WBC 0-2 /hpf Urine Squamous Epithelial Cells 0-5 /hpf Urine Bacteria NONE /hpf Microscopic Urinalysis Comment CULT NOT INDICATED Nasal Screen MRSA (PCR) MRSA NOT DETECTED Phosphorus Level 2.9 MG/DL Magnesium Level 1.9 MG/DL Total Creatine Kinase 105 U/L Test 12/25/17 04:45 White Blood Count 9.6 TH/MM3 Red Blood Count 4.78 MIL/MM3 Hemoglobin 13.4 GM/DL Hematocrit 40.3 % Mean Corpuscular Volume 84.4 FL Mean Corpuscular Hemoglobin 28.1 PG Mean Corpuscular Hemoglobin Concent 33.3 % Red Cell Distribution Width 15.9 % Platelet Count 196 TH/MM3 Mean Platelet Volume 9.4 FL Neutrophils (%) (Auto) 79.8 % Lymphocytes (%) (Auto) 9.8 % Monocytes (%) (Auto) 6.6 % Eosinophils (%) (Auto) 3.2 % Basophils (%) (Auto) 0.6 % Neutrophils # (Auto) 7.7 TH/MM3 Lymphocytes # (Auto) 0.9 TH/MM3 Monocytes # (Auto) 0.6 TH/MM3 Eosinophils # (Auto) 0.3 TH/MM3 Basophils # (Auto) 0.1 TH/MM3 CBC Comment DIFF FINAL Differential Comment Prothrombin Time 20.1 SEC Prothromb Time International Ratio 2.0 RATIO Blood Urea Nitrogen 27 MG/DL Creatinine 1.56 MG/DL Random Glucose 127 MG/DL Calcium Level 8.7 MG/DL Magnesium Level 2.1 MG/DL Sodium Level 139 MEQ/L Potassium Level 4.1 MEQ/L Chloride Level 105 MEQ/L Carbon Dioxide Level 26.1 MEQ/L Anion Gap 8 MEQ/L Estimat Glomerular Filtration Rate 43 ML/MIN (Farhan Castillo) Medical Decision Making Impression and Plan Impression: 1. C3 ankylosing spondylitis fracture extending through the anterior to posterior aspect of vertebral body as well as right-sided facet. This is an unstable fracture. 2. Chronic dysphagia with esophageal strictures, despite multiple esophageal dilation attempts, along with some hoarseness. 3. Chronic atrial fibrillation, on Coumadin therapy. 4. Coronary artery disease, status post coronary artery bypass grafting with complaints of dyspnea with exertion. 5. Diabetes mellitus. 6. Unregulated hypertension. The patient is doing well when seen. He remains neurologically intact. Hypertension improved. Bradycardia. MRI cervical spine demonstrates an oblique C3 vertebral body fracture & anterior bridging osteophyte w/marrow edema. No retropulsion, extradural fluid collection or haematoma noted. There is antegrade vertebral soft tissue swelling. The cervical cord is intact. Plan: Primary & critical care management per Trauma. Neuro checks. Continue [place] cervical collar. Mobilise patient w/assistance. Physical Therapy eval & tx. Possible HALO vs cervical fusion. Hold warfarin. Per Dr Roach: "Depending on his overall cardiac condition, we will need to contemplate whether this C3 unstable fracture can be treated with a collar/halo versus a cervical fusion. His risk for complication in either case is in the moderate to high range given his extensive comorbidities. ... Further cardiac evaluation/workup including echocardiogram and may need cardiac clearance also for any anticipated cervical spine surgery." From Neurosurgery's perspective the patient is able to be transferred to a regular med/surg floor at this time. (Farhan Castillo) Attending Statement The exam, history, and the medical decision-making described in the above note were completed with the assistance of the mid-level provider. I reviewed and agree with the findings presented. I attest that I had a [id number] encounter with the patient on the same day, and personally performed and documented my assessment and findings in the medical record. On examination today, the patient continues to wear cervical collar. Moderate cervical spine tenderness. Carotid ultrasound results pending from today study. Stable for transfer to floor. Possible ACDF versus conservative treatment for C2-3 fracture. (Vic Lewis MD) Farhan Castillo Dec 25, 2017 12:14 Vic Lewis MD Dec 25, 2017 20:52
--- NOTE | 2017-12-25 18:32 | RADRPT ---
EXAM DATE/TIME: 12/25/2017 17:51 [facility] COMPARISON: US CAROTID ARTERIES, July 14, 2017, 16:04. INDICATIONS : C2-C3 fracture. MEDICAL HISTORY : Myocardial infarction. Arthritis. Hypertension. Coronary artery disease. Hypercholesterolemia. Diabet es. Skin cancer. Infection with post op catheter. SURGICAL HISTORY : CABG. Coronary artery bypass graft. Prostate surgery. ENCOUNTER: Subsequent ACUITY: 1 day PAIN SCORE: 5/10 LOCATION: Bilateral neck PEAK SYSTOLIC VELOCITIES (cm/sec): ICA/CCA RATIO: Right: 1.0 Left: 0.7 ICA: Right: 83.9 Left: 63.3 CCA: Right: 84.0 Left: 85.9 ECA: Right: 132.0 Left: 94.3 VERTEBRAL: Right: UTO absent Left: 47.8 antegrade Elevated flow velocities and ICA/CCA ratios have been found to correlate with increased degrees of vessel stenosis, calculated as percentage of diameter relative to a normal segment of distal ICA/CCA FINDINGS: RIGHT CAROTID: No significant stenosis is visualized. The waveforms are within normal limits. LEFT CAROTID: No significant stenosis is visualized. The waveforms are within normal limits. VERTEBRAL ARTERIES: Antegrade flow the left vertebral artery. Unable to document flow in the right vertebral artery expec [place] location. MISCELLANEOUS: None. CONCLUSION: No evidence for hemodynamically significant stenosis of either carotid artery. Unable to visualize th e right vertebral artery. Angel Luis Elias MD on December 25, 2017 at 18:29 Board Certified Radiologist. This report was verified electronically.
[2017-12-25] MEDS: ATORVASTATIN 40 MG TAB PO SCH (23:05)
[2017-12-26] VITALS (11 sets, daily range): BP systolic 128–154; BP diastolic 63–73; PULSE 35–94; RESP 17–18; TEMP 97.5–98.5; O2SAT 94–97
--- NOTE | 2017-12-26 06:11 | HHI.CCPN ---
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 I guess he was transferred to medicine rather than surgery due to complexity of his past medical history and comorbidities including Coumadin use Patient has complex medical history including coronary artery disease, hypertension, atrial fibrillation and diabetes mellitus Prostate cancer and COPD Patient was on Coumadin 24 Hour Review/Hospital Course 12/24/2017 Patient has been hemodynamically stable since the arrival Neurologically intact C-collar in place Bilateral breath sounds decreased over the both lung rendon consistent with COPD Patient is in chronic A. fib For spine MRI today and will order cardiac echo to assess patient's cardiac function. In best case scenario this patient would need to have cervical fusion however due to age and medical issues he may not be candidate for the same On the other hand halo placement is also associated with decline because patient 's general will lay in bed and developed pneumonia infections and this can lead to their demise Therefore there is no good answer here except the workup the patient and assess for the surgical risk and then decide one way or the other 12/25/17- late entry Patient OOB in chair with cervical collar in place Cardiac workup to assess patient's surgical candidacy is ongoing Patient is anticipating cervical repair on Wednesday/Wednesday Pain controlled Objective Vital Signs Date Time Temp Pulse Resp B/P (MAP) Pulse Ox O2 Delivery O2 Flow Rate FiO2 12/26/17 04:47 98.0 57 18 143/69 (93) 94 12/25/17 07:00 Room Air 12/24/17 07:00 2.00 12/24/17 03:00 97 Intake and Output 12/26/17 12/26/17 12/27/17 08:00 16:00 00:00 Intake Total 120 ml Output Total 300 ml Balance -180 ml Result Diagram: 12/25/17 0445 12/25/17 0445 Imaging Last Impressions Carotid Artery Ultrasound 12/25/17 0000 Signed Impressions: Service Date/Time: Monday, December 25, 2017 17:51 - CONCLUSION: No evidence for hemodynamically significant stenosis of either carotid artery. Unable to visualize the right vertebral artery. Angel Luis Elias MD Chest X-Ray 12/24/17 0000 Signed Impressions: Service Date/Time: Sunday, December 24, 2017 00:48 - CONCLUSION: No acute abnormality demonstrated. Triston Marks MD Cervical Spine MRI 12/24/17 0000 Signed Impressions: Service Date/Time: Sunday, December 24, 2017 13:37 - CONCLUSION: Oblique fracture again noted through the C3 vertebral body and anterior bridging osteophyte with marrow edema and no retropulsion. No extradural fluid collections or hematoma identified. There is antegrade vertebral soft tissue swelling. The cervical cord is intact. True Feliz MD Cervical Spine CT [id number] Signed Impressions: Service Date/Time: November 22:34 - CONCLUSION: 1. Oblique fracture through the C3 vertebral body and the exuberant osteophytes anteriorly at the C2-3 level. 2. Exuberant fused osteophytes extending from C2-T2 with an articulation at the T1-T2 level. There is acute fracture at the C2-3 level through these osteophytes. 3. Degenerative change as described above. This information was relayed by telephone to Dr. Barrera. Triston Edmondson MD Head CT [id number] Signed Impressions: Service Date/Time: November 22:34 - CONCLUSION: 1. No acute intracranial abnormality. 2. Atrophy. 3. Frontal scalp hematomas being worse on the right. Triston Edmondson MD Objective Remarks GENERAL: 82 year old well-nourished male OOB in chair with cervical collar in place. SKIN: Warm and dry. Scattered abrasions. Hematoma noted on forehead. HEAD:Normocephalic. ENT: No nasal bleeding or discharge. Mucous membranes pink and moist. NECK: Trachea midline. No JVD. [place] J collar. CARDIOVASCULAR: Regular rate and rhythm. RESPIRATORY: No accessory muscle use. Clear to auscultation. Breath sounds equal bilaterally. GASTROINTESTINAL: Abdomen soft, non-tender, nondistended. + BS MUSCULOSKELETAL: Extremities without cyanosis, or edema. MAEW, + perfused NEUROLOGICAL: Awake and alert. Normal speech. Assessment and Plan Plan [place]: Fell from the standing position when his dog pulled on the leash and was dragged on the ground for 12-15 feet. No LOC. On Coumadin for A-fib. INJURIES: Scalp hematoma C2-3 fxs PMHx: A-fib, arthritis, CAD, DM, HLD, HTN, [place] x3, CABG in 2004, gout Scalp hematoma Supportive care C2-3 fxs Neurosurgery consulted [place] J collar Conservative vs surgical intervention is being determined Pain control Bowel regimen OOB- PT ordered Transfer to floor HTN Home meds resumed: Norvasc, Coreg, Vasotec PRN PO Clonidine Cardene gtt off Plan of care discussed with patient at bedside. Collaborating Trauma MD agrees with plan. Case management consulted to assist with discharge planning. Baldev Palma Dec 26, 2017 06:11
[2017-12-26] MEDS ORDERED: ACETAMINOPHEN/HYDROcodone 325 MG/5 MG TAB PO PRN (06:15)
[2017-12-26] MEDS: INSULIN NovoLIN REGULAR SUPPLEMENTAL SCALE SQ SCH ×4 (07:23→20:54)
[2017-12-26] MEDS: ENALAPRIL MALEATE 10 MG TAB PO SCH (07:59)
[2017-12-26] MEDS: CARVEDILOL 12.5 MG TAB PO SCH ×2 (07:59→20:48)
[2017-12-26] MEDS: PANTOPRAZOLE SOD 40 MG DELAYED RELEASE TAB PO SCH (07:59)
[2017-12-26] MEDS: ALLOPURINOL 300 MG TAB PO SCH (07:59)
[2017-12-26] MEDS: SODIUM CHLORIDE 0.9% FLUSH 10 ML FLUSH IV FLUSH SCH ×2 (08:00→20:49)
[2017-12-26] MEDS: DOCUSATE SODIUM 50 MG/SENNA 8.6 MG TAB PO SCH ×2 (08:00→20:54)
[2017-12-26] MEDS: MENTHOL LOZENGE BUCCAL PRN ×2 (09:29→11:34)
--- NOTE | 2017-12-26 12:23 | HHI.PR ---
Subjective Subjective Notes Denies pain Eating well Objective Vitals/I&O Vital Signs Date Time Temp Pulse Resp B/P (MAP) Pulse Ox O2 Delivery O2 Flow Rate FiO2 12/26/17 12:00 97.5 56 18 144/63 (90) 97 12/25/17 07:00 Room Air 12/24/17 07:00 2.00 12/24/17 03:00 97 Labs Laboratory Tests Test 12/23/17 23:31 12/24/17 00:00 12/24/17 03:00 12/24/17 16:57 Blood Urea Nitrogen 27 MG/DL 23 MG/DL Creatinine 1.50 MG/DL 1.39 MG/DL Random Glucose 139 MG/DL 147 MG/DL Total Protein 7.3 GM/DL Albumin 3.0 GM/DL Calcium Level 8.6 MG/DL 8.6 MG/DL Alkaline Phosphatase 103 U/L Aspartate Amino Transf (AST/SGOT) 20 U/L Alanine Aminotransferase (ALT/SGPT) 15 U/L Total Bilirubin 0.5 MG/DL Sodium Level 138 MEQ/L 140 MEQ/L Potassium Level 3.7 MEQ/L 3.6 MEQ/L Chloride Level 105 MEQ/L 105 MEQ/L Carbon Dioxide Level 24.7 MEQ/L 27.4 MEQ/L Urine Color YELLOW Urine Turbidity CLEAR Urine pH 7.0 Urine Specific [place] 1.020 Urine Protein 100 mg/dL Urine Glucose (UA) NEG mg/dL Urine Ketones NEG mg/dL Urine Occult Blood SMALL Urine Nitrite NEG Urine Bilirubin NEG Urine Urobilinogen 0.2 MG/DL Urine Leukocyte Esterase NEG Urine RBC 3-5 /hpf Urine WBC 0-2 /hpf Urine Squamous Epithelial Cells 0-5 /hpf Urine Bacteria NONE /hpf Microscopic Urinalysis Comment CULT NOT INDICATED Nasal Screen MRSA (PCR) MRSA NOT DETECTED Activated Partial Thromboplast Time 29.2 SEC Phosphorus Level 2.9 MG/DL Magnesium Level 1.9 MG/DL Total Creatine Kinase 105 U/L Test 12/25/17 04:45 White Blood Count 9.6 TH/MM3 Red Blood Count 4.78 MIL/MM3 Hemoglobin 13.4 GM/DL Hematocrit 40.3 % Mean Corpuscular Volume 84.4 FL Mean Corpuscular Hemoglobin 28.1 PG Mean Corpuscular Hemoglobin Concent 33.3 % Red Cell Distribution Width 15.9 % Platelet Count 196 TH/MM3 Mean Platelet Volume 9.4 FL Neutrophils (%) (Auto) 79.8 % Lymphocytes (%) (Auto) 9.8 % Monocytes (%) (Auto) 6.6 % Eosinophils (%) (Auto) 3.2 % Basophils (%) (Auto) 0.6 % Neutrophils # (Auto) 7.7 TH/MM3 Lymphocytes # (Auto) 0.9 TH/MM3 Monocytes # (Auto) 0.6 TH/MM3 Eosinophils # (Auto) 0.3 TH/MM3 Basophils # (Auto) 0.1 TH/MM3 CBC Comment DIFF FINAL Differential Comment Prothrombin Time 20.1 SEC Prothromb Time International Ratio 2.0 RATIO Blood Urea Nitrogen 27 MG/DL Creatinine 1.56 MG/DL Random Glucose 127 MG/DL Calcium Level 8.7 MG/DL Magnesium Level 2.1 MG/DL Sodium Level 139 MEQ/L Potassium Level 4.1 MEQ/L Chloride Level 105 MEQ/L Carbon Dioxide Level 26.1 MEQ/L Anion Gap 8 MEQ/L Estimat Glomerular Filtration Rate 43 ML/MIN Radiology Last Impressions Carotid Artery Ultrasound 12/25/17 0000 Signed Impressions: Service Date/Time: Monday, December 25, 2017 17:51 - CONCLUSION: No evidence for hemodynamically significant stenosis of either carotid artery. Unable to visualize the right vertebral artery. Angel Luis Elias MD Chest X-Ray 12/24/17 0000 Signed Impressions: Service Date/Time: Sunday, December 24, 2017 00:48 - CONCLUSION: No acute abnormality demonstrated. Triston Marks MD Cervical Spine MRI 12/24/17 0000 Signed Impressions: Service Date/Time: Sunday, December 24, 2017 13:37 - CONCLUSION: Oblique fracture again noted through the C3 vertebral body and anterior bridging osteophyte with marrow edema and no retropulsion. No extradural fluid collections or hematoma identified. There is antegrade vertebral soft tissue swelling. The cervical cord is intact. True Feliz MD Cervical Spine CT 12/23/17 432 Signed Impressions: Service Date/Time: November 22:34 - CONCLUSION: 1. Oblique fracture through the C3 vertebral body and the exuberant osteophytes anteriorly at the C2-3 level. 2. Exuberant fused osteophytes extending from C2-T2 with an articulation at the T1-T2 level. There is acute fracture at the C2-3 level through these osteophytes. 3. Degenerative change as described above. This information was relayed by telephone to Dr. Barrera. Triston Edmondson MD Head CT 12/23/17 1011 Signed Impressions: Service Date/Time: November 22:34 - CONCLUSION: 1. No acute intracranial abnormality. 2. Atrophy. 3. Frontal scalp hematomas being worse on the right. Triston Edmondson MD Narrative Exam GENERAL: 82 year old well-nourished male lying in bed with cervical collar in place. SKIN: Warm and dry. Scattered abrasions. Hematoma noted on forehead. HEAD:Normocephalic. ENT: No nasal bleeding or discharge. Mucous membranes pink and moist. NECK: Trachea midline. No JVD. [place] J collar. CARDIOVASCULAR: Regular rate and rhythm. RESPIRATORY: No accessory muscle use. Clear to auscultation. Breath sounds equal bilaterally. GASTROINTESTINAL: Abdomen soft, non-tender, nondistended. + BS MUSCULOSKELETAL: Extremities without cyanosis, or edema. MAEW, + perfused NEUROLOGICAL: Awake and alert. Normal speech. A/P Assessment and Plan [place]: Fell from the standing position when his dog pulled on the leash and was dragged on the ground for 12-15 feet. No LOC. On Coumadin for A-fib. INJURIES: Scalp hematoma C2-3 fxs PMHx: A-fib, arthritis, CAD, DM, HLD, HTN, [place] x3, CABG in 2004, gout Scalp hematoma Supportive care C2-3 fxs Neurosurgery consulted [place] J collar Conservative vs surgical intervention is being determined Pain control Bowel regimen OOB- PT ordered HTN Home meds resumed: Norvasc, Coreg, Vasotec PRN PO Clonidine Plan of care discussed with patient at bedside. Collaborating Trauma MD agrees with plan. Case management consulted to assist with discharge planning. Baldev Palma Dec 26, 2017 12:23
--- NOTE | 2017-12-26 17:26 | HHI.NSPN ---
History Chief Complaint: Slight pain to the neck Interval History 12/24: An 82-year-old gentleman, who presented to [facility] Emergency Room last evening after he was dragged by his large dog, was chasing another dog, fell forward and was dragged about 15 feet with his head on the grass. He denies loss of consciousness. He complains of neck pain, but denies any radiation to the upper or lower extremities. He has chronic low back pain. The CT scan of the cervical spine obtained reveals what appears to be an ankylosing spondylitis. Fusion extends from C2-C7 level with anterior osteophytes and fusion as well as facet fusion. There is a fracture that extends from the inferior aspect of the C2 vertebral body anterior osteophyte through the mid body of the C3 and also involving the right C3 facet consistent with an ankylosing spondylitis break. He was maintained in a cervical collar and transferred to [facility] main intensive care unit for further management. Overnight, he has not had any change in symptoms. He denies feeling lightheaded or dizzy either prior to or subsequent to this fall. He was very hypertensive in the emergency room and was placed on a Cardene drip after p.r.n. IV medications were not effective in controlling his hypertension. He is also on Coumadin for his atrial fibrillation. CT of the head is negative for any intracranial abnormality. 12/25: The patient is sitting up in the chair when seen this afternoon. The only time he has pain to the back of the neck is if he will move it some, then he will have a little pain that lasts for a brief time and resolves on its own. He denies any continuous midline neck pain. He denies any headache or dizziness. He has no pain, numbness or tingling to the extremities. He is neurologically intact when examined. 12/26: The patient has been transferred to a regular med/surg floor since he was last seen. He was in bed "half asleep" but woke up to voice. After that he was alert. He has occasional pain to the neck briefly if he moves it and it will resolve without intervention. He has no headache, dizziness or visual problems. He denies any extremity pain, numbness or tingling. There is no change in his neuro exam upon evaluation. Exam Results 12/24/17 12/24/17 12/25/17 12/25/17 12/26/17 12/26/17 06:00 18:00 06:00 18:00 06:00 18:00 Intake Total 280 ml 550 ml 240 ml 400 ml 120 ml Output Total 200 ml 1550 ml 400 ml 400 ml 300 ml 300 ml Balance 80 ml -1000 ml -160 ml 0 ml -180 ml -300 ml Intake Oral 30 ml 50 ml 240 ml 400 ml 120 ml IV Total 250 ml 500 ml Output Urine Total 200 ml 1550 ml 400 ml 400 ml 300 ml 300 ml # Voids 1 1 1 # Bowel Movements 0 1 0 1 Vital Signs Date Time Temp Pulse Resp B/P (MAP) Pulse Ox O2 Delivery O2 Flow Rate FiO2 12/26/17 16:27 57 12/26/17 16:00 97.5 56 18 148/69 (95) 97 12/26/17 13:39 35 12/26/17 12:00 97.5 56 18 144/63 (90) 97 12/26/17 11:16 48 12/26/17 08:09 57 12/26/17 08:00 97.5 58 18 154/71 (98) 95 12/26/17 04:47 98.0 57 18 143/69 (93) 94 12/26/17 00:14 98.2 52 17 147/70 (95) 95 12/25/17 20:00 97.9 57 18 167/79 (108) 97 12/25/17 18:00 96 12/25/17 16:00 62 12/25/17 16:00 97.1 76 13 140/65 (90) 92 12/25/17 14:00 58 12/25/17 12:00 40 12/25/17 12:00 97.6 40 20 128/61 (83) 98 12/25/17 10:00 58 12/25/17 08:00 97.2 58 20 143/66 (91) 96 12/25/17 08:00 58 12/25/17 07:00 96 Room Air 12/25/17 06:00 64 12/25/17 04:00 97.9 60 22 111/54 (73) 94 12/25/17 04:00 60 12/25/17 02:00 60 12/25/17 00:00 59 12/25/17 00:00 97.9 59 21 156/71 (99) 94 12/24/17 22:00 59 12/24/17 20:00 59 12/24/17 20:00 97.9 59 22 142/65 (90) 97 12/24/17 19:00 98 Room Air 12/24/17 18:00 58 12/24/17 16:06 70 155/94 12/24/17 16:00 97.8 64 20 154/68 (96) 97 12/24/17 16:00 64 12/24/17 14:00 62 12/24/17 12:00 48 12/24/17 12:00 97.6 61 21 149/67 (94) 98 12/24/17 10:57 61 164/79 12/24/17 10:00 48 12/24/17 08:00 97.6 74 23 155/78 (103) 93 12/24/17 08:00 74 12/24/17 07:00 97 Nasal Cannula 2.00 12/24/17 06:00 70 12/24/17 05:25 69 161/69 12/24/17 04:00 80 12/24/17 04:00 97.7 70 24 139/63 (88) 94 12/24/17 03:00 Nasal Cannula 2.00 97 12/24/17 02:05 80 20 165/56 (92) 98 12/24/17 02:00 78 20 170/67 (101) 98 12/24/17 01:30 70 20 178/58 (98) 12/24/17 01:19 74 20 169/69 (102) 12/24/17 01:00 76 20 185/74 (111) 97 12/24/17 00:30 80 208/78 (121) 12/24/17 00:15 70 18 243/92 (142) 98 2.00 12/24/17 00:00 80 20 220/94 (136) 12/24/17 00:00 72 243/94 12/23/17 23:43 68 18 251/108 (155) 12/23/17 23:18 72 20 249/108 (155) 12/23/17 23:00 20 98 12/23/17 22:10 68 20 223/114 (150) 98 12/23/17 21:51 64 20 223/114 (150) 12/23/17 21:37 62 20 219/102 (141) 97 12/23/17 21:35 98.4 69 18 219/102 (141) 96 Physical Examination GENERAL: The patient is asleep in bed but wakes up to voice. He is awake and readily interacts after that. His affect is normal. No apparent distress. HEENT: Right frontal scalp & forehead contusion/haematoma w/abrasion. Right periorbital ecchymosis. PERRLA 2mm brisk, EOMI, right subconjunctival haemorrhage. MMM & pink, tongue midline to protrusion. NECK: [place] J cervical collar in place. NTTP of the midline cervical spine. Neck soft & supple. No JVD. Trachea midline. MUSCULOSKELETAL: Extremities NTTP. JOSHI spontaneously & purposefully. No evident clubbing or deformity. Vascular skin changes to the lower leg bilaterally. NEUROLOGIC: AAOx3. Speech clear & appropriate. Follows commands w/o difficulty. CN II through XII appear grossly intact. Sensation intact to light touch to all extremities. Motor strength is 5/5 to all major flexion & extension muscle groups of the extremities. Lab, Micro, Other Results Recent Impressions Carotid Artery Ultrasound 12/25/17 0000 Signed Impressions: Service Date/Time: Monday, December 25, 2017 17:51 - CONCLUSION: No evidence for hemodynamically significant stenosis of either carotid artery. Unable to visualize the right vertebral artery. Angel Luis Elias MD Chest X-Ray 12/24/17 0000 Signed Impressions: Service Date/Time: Sunday, December 24, 2017 00:48 - CONCLUSION: No acute abnormality demonstrated. Triston Marks MD Cervical Spine MRI 12/24/17 0000 Signed Impressions: Service Date/Time: Sunday, December 24, 2017 13:37 - CONCLUSION: Oblique fracture again noted through the C3 vertebral body and anterior bridging osteophyte with marrow edema and no retropulsion. No extradural fluid collections or hematoma identified. There is antegrade vertebral soft tissue swelling. The cervical cord is intact. True Feliz MD Cervical Spine CT [id number]/[id number] Signed Impressions: Service Date/Time: November 22:34 - CONCLUSION: 1. Oblique fracture through the C3 vertebral body and the exuberant osteophytes anteriorly at the C2-3 level. 2. Exuberant fused osteophytes extending from C2-T2 with an articulation at the T1-T2 level. There is acute fracture at the C2-3 level through these osteophytes. 3. Degenerative change as described above. This information was relayed by telephone to Dr. Barrera. Triston Edmondson MD Head CT 12/23/17 [id number] Signed Impressions: Service Date/Time: November 22:34 - CONCLUSION: 1. No acute intracranial abnormality. 2. Atrophy. 3. Frontal scalp hematomas being worse on the right. Triston Edmondson MD Laboratory Tests Test 12/23/17 23:31 12/24/17 00:00 12/24/17 03:00 12/24/17 16:57 White Blood Count 12.4 TH/MM3 10.6 TH/MM3 Red Blood Count 5.09 MIL/MM3 5.03 MIL/MM3 Hemoglobin 14.2 GM/DL 14.5 GM/DL Hematocrit 42.9 % 42.8 % Mean Corpuscular Volume 84.3 FL 85.0 FL Mean Corpuscular Hemoglobin 27.9 PG 28.9 PG Mean Corpuscular Hemoglobin Concent 33.1 % 34.0 % Red Cell Distribution Width 15.9 % 16.0 % Platelet Count 196 TH/MM3 180 TH/MM3 Mean Platelet Volume 9.8 FL 8.4 FL Neutrophils (%) (Auto) 84.8 % Lymphocytes (%) (Auto) 8.3 % Monocytes (%) (Auto) 4.4 % Eosinophils (%) (Auto) 2.2 % Basophils (%) (Auto) 0.3 % Neutrophils # (Auto) 10.6 TH/MM3 Lymphocytes # (Auto) 1.0 TH/MM3 Monocytes # (Auto) 0.5 TH/MM3 Eosinophils # (Auto) 0.3 TH/MM3 Basophils # (Auto) 0.0 TH/MM3 CBC Comment DIFF FINAL Differential Comment Prothrombin Time 17.5 SEC 19.3 SEC Prothromb Time International Ratio 1.7 RATIO 1.9 RATIO Activated Partial Thromboplast Time 28.8 SEC 29.2 SEC Blood Urea Nitrogen 27 MG/DL 23 MG/DL Creatinine 1.50 MG/DL 1.39 MG/DL Random Glucose 139 MG/DL 147 MG/DL Total Protein 7.3 GM/DL Albumin 3.0 GM/DL Calcium Level 8.6 MG/DL 8.6 MG/DL Alkaline Phosphatase 103 U/L Aspartate Amino Transf (AST/SGOT) 20 U/L Alanine Aminotransferase (ALT/SGPT) 15 U/L Total Bilirubin 0.5 MG/DL Sodium Level 138 MEQ/L 140 MEQ/L Potassium Level 3.7 MEQ/L 3.6 MEQ/L Chloride Level 105 MEQ/L 105 MEQ/L Carbon Dioxide Level 24.7 MEQ/L 27.4 MEQ/L Anion Gap 8 MEQ/L 8 MEQ/L Estimat Glomerular Filtration Rate 45 ML/MIN 49 ML/MIN Urine Color YELLOW Urine Turbidity CLEAR Urine pH 7.0 Urine Specific [place] 1.020 Urine Protein 100 mg/dL Urine Glucose (UA) NEG mg/dL Urine Ketones NEG mg/dL Urine Occult Blood SMALL Urine Nitrite NEG Urine Bilirubin NEG Urine Urobilinogen 0.2 MG/DL Urine Leukocyte Esterase NEG Urine RBC 3-5 /hpf Urine WBC 0-2 /hpf Urine Squamous Epithelial Cells 0-5 /hpf Urine Bacteria NONE /hpf Microscopic Urinalysis Comment CULT NOT INDICATED Nasal Screen MRSA (PCR) MRSA NOT DETECTED Phosphorus Level 2.9 MG/DL Magnesium Level 1.9 MG/DL Total Creatine Kinase 105 U/L Test 12/25/17 04:45 White Blood Count 9.6 TH/MM3 Red Blood Count 4.78 MIL/MM3 Hemoglobin 13.4 GM/DL Hematocrit 40.3 % Mean Corpuscular Volume 84.4 FL Mean Corpuscular Hemoglobin 28.1 PG Mean Corpuscular Hemoglobin Concent 33.3 % Red Cell Distribution Width 15.9 % Platelet Count 196 TH/MM3 Mean Platelet Volume 9.4 FL Neutrophils (%) (Auto) 79.8 % Lymphocytes (%) (Auto) 9.8 % Monocytes (%) (Auto) 6.6 % Eosinophils (%) (Auto) 3.2 % Basophils (%) (Auto) 0.6 % Neutrophils # (Auto) 7.7 TH/MM3 Lymphocytes # (Auto) 0.9 TH/MM3 Monocytes # (Auto) 0.6 TH/MM3 Eosinophils # (Auto) 0.3 TH/MM3 Basophils # (Auto) 0.1 TH/MM3 CBC Comment DIFF FINAL Differential Comment Prothrombin Time 20.1 SEC Prothromb Time International Ratio 2.0 RATIO Blood Urea Nitrogen 27 MG/DL Creatinine 1.56 MG/DL Random Glucose 127 MG/DL Calcium Level 8.7 MG/DL Magnesium Level 2.1 MG/DL Sodium Level 139 MEQ/L Potassium Level 4.1 MEQ/L Chloride Level 105 MEQ/L Carbon Dioxide Level 26.1 MEQ/L Anion Gap 8 MEQ/L Estimat Glomerular Filtration Rate 43 ML/MIN Medical Decision Making Impression and Plan Impression: 1. C3 ankylosing spondylitis fracture extending through the anterior to posterior aspect of vertebral body as well as right-sided facet. This is an unstable fracture. 2. Chronic dysphagia with esophageal strictures, despite multiple esophageal dilation attempts, along with some hoarseness. 3. Chronic atrial fibrillation, on Coumadin therapy. 4. Coronary artery disease, status post coronary artery bypass grafting with complaints of dyspnea with exertion. 5. Diabetes mellitus. 6. Unregulated hypertension. The patient continues to do well. There is no change in his neurological exam. One episode of elevated SBP yesterday evening. Bradycardia. MRI cervical spine demonstrates an oblique C3 vertebral body fracture & anterior bridging osteophyte w/marrow edema. No retropulsion, extradural fluid collection or haematoma noted. There is antegrade vertebral soft tissue swelling. The cervical cord is intact. Plan: Primary & critical care management per Trauma. Neuro checks. Continue [place] J cervical collar. Mobilise patient w/assistance. Physical Therapy eval & tx. Possible HALO vs cervical fusion. Hold warfarin. Per Dr Roach: "Depending on his overall cardiac condition, we will need to contemplate whether this C3 unstable fracture can be treated with a collar/halo versus a cervical fusion. His risk for complication in either case is in the moderate to high range given his extensive comorbidities. ... Further cardiac evaluation/workup including echocardiogram and may need cardiac clearance also for any anticipated cervical spine surgery." Farhan Castillo [facility] Dec 26, 2017 17:26
[2017-12-26] MEDS: ATORVASTATIN 40 MG TAB PO SCH (20:49)
[2017-12-27] VITALS (12 sets, daily range): BP systolic 131–173; BP diastolic 63–79; PULSE 38–58; RESP 17–21; TEMP 97.8–98.8; O2SAT 94–98
[2017-12-27] MEDS: ENALAPRIL MALEATE 10 MG TAB PO SCH (08:10)
[2017-12-27] MEDS: CARVEDILOL 12.5 MG TAB PO SCH (08:10)
[2017-12-27] MEDS: ALLOPURINOL 300 MG TAB PO SCH (08:10)
[2017-12-27] MEDS: PANTOPRAZOLE SOD 40 MG DELAYED RELEASE TAB PO SCH (08:10)
[2017-12-27] MEDS: SODIUM CHLORIDE 0.9% FLUSH 10 ML FLUSH IV FLUSH SCH ×2 (08:11→20:43)
[2017-12-27] MEDS: DOCUSATE SODIUM 50 MG/SENNA 8.6 MG TAB PO SCH ×2 (08:11→21:00)
[2017-12-27] MEDS: INSULIN NovoLIN REGULAR SUPPLEMENTAL SCALE SQ SCH ×4 (08:11→20:43)
--- NOTE | 2017-12-27 09:53 | HHI.NSPN ---
History Chief Complaint: Pt states neck pain controlled. Interval History 12/24: An 82-year-old gentleman, who presented to [facility] Emergency Room last evening after he was dragged by his large dog, was chasing another dog, fell forward and was dragged about 15 feet with his head on the grass. He denies loss of consciousness. He complains of neck pain, but denies any radiation to the upper or lower extremities. He has chronic low back pain. The CT scan of the cervical spine obtained reveals what appears to be an ankylosing spondylitis. Fusion extends from C2-C7 level with anterior osteophytes and fusion as well as facet fusion. There is a fracture that extends from the inferior aspect of the C2 vertebral body anterior osteophyte through the mid body of the C3 and also involving the right C3 facet consistent with an ankylosing spondylitis break. He was maintained in a cervical collar and transferred to [facility] main intensive care unit for further management. Overnight, he has not had any change in symptoms. He denies feeling lightheaded or dizzy either prior to or subsequent to this fall. He was very hypertensive in the emergency room and was placed on a Cardene drip after p.r.n. IV medications were not effective in controlling his hypertension. He is also on Coumadin for his atrial fibrillation. CT of the head is negative for any intracranial abnormality. 12/25: The patient is sitting up in the chair when seen this afternoon. The only time he has pain to the back of the neck is if he will move it some, then he will have a little pain that lasts for a brief time and resolves on its own. He denies any continuous midline neck pain. He denies any headache or dizziness. He has no pain, numbness or tingling to the extremities. He is neurologically intact when examined. 12/26: The patient has been transferred to a regular med/surg floor since he was last seen. He was in bed "half asleep" but woke up to voice. After that he was alert. He has occasional pain to the neck briefly if he moves it and it will resolve without intervention. He has no headache, dizziness or visual problems. He denies any extremity pain, numbness or tingling. There is no change in his neuro exam upon evaluation. 12/27/17: Pt awake and alert. Sitting up in chair. States neck pain controlled. He denies any radiculopathy or paresthesias in UEs. He moves UEs with good strength. Right periorbital edema improved. Review of Systems General: Negative for: fever, chills, insomnia Respiratory: Negative for: shortness of breath, cough, sputum Cardiovascular: Negative for: chest pain Gastrointestinal: Negative for: nausea, vomitting, diarrhea, constipation Exam Results Vital Signs Date Time Temp Pulse Resp B/P (MAP) Pulse Ox O2 Delivery O2 Flow Rate FiO2 12/27/17 08:45 98.8 56 18 133/63 (86) 97 12/26/17 22:21 21 12/25/17 07:00 Room Air 12/24/17 07:00 2.00 Intake and Output 12/27/17 12/27/17 12/28/17 08:00 16:00 00:00 Intake Total 240 ml Balance 240 ml Physical Examination General: Pt sitting up in chair with cervical collar in place in NAD. Eyes: Right periorbital edema improved. Pupils equal. Sclera anicteric. Right periorbital ecchymosis present. Resp: CTA bilaterally Heart: NSR no murmurs Abd: Soft positive bs Skin: Right forehead ecchymosis and edema. Right periorbital ecchymosis. Muscle: Moves all 4 extremities with good strength. Neuro: Pt awake and alert. Sitting up in chair. Follows commands well. Sensation intact in UEs. Speech fluent and comprehension good. Lab, Micro, Other Results Last Impressions Carotid Artery Ultrasound 12/25/17 0000 Signed Impressions: Service Date/Time: Monday, December 25, 2017 17:51 - CONCLUSION: No evidence for hemodynamically significant stenosis of either carotid artery. Unable to visualize the right vertebral artery. Angel Luis Elias MD Chest X-Ray 12/24/17 0000 Signed Impressions: Service Date/Time: Sunday, December 24, 2017 00:48 - CONCLUSION: No acute abnormality demonstrated. Triston Marks MD Cervical Spine MRI 12/24/17 0000 Signed Impressions: Service Date/Time: Sunday, December 24, 2017 13:37 - CONCLUSION: Oblique fracture again noted through the C3 vertebral body and anterior bridging osteophyte with marrow edema and no retropulsion. No extradural fluid collections or hematoma identified. There is antegrade vertebral soft tissue swelling. The cervical cord is intact. True Feliz MD Cervical Spine CT 12/23/174 Signed Impressions: Service Date/Time: November 22:34 - CONCLUSION: 1. Oblique fracture through the C3 vertebral body and the exuberant osteophytes anteriorly at the C2-3 level. 2. Exuberant fused osteophytes extending from C2-T2 with an articulation at the T1-T2 level. There is acute fracture at the C2-3 level through these osteophytes. 3. Degenerative change as described above. This information was relayed by telephone to Dr. Barrera. Triston Edmondson MD Head CT 12/23/171 Signed Impressions: Service Date/Time: November 22:34 - CONCLUSION: 1. No acute intracranial abnormality. 2. Atrophy. 3. Frontal scalp hematomas being worse on the right. Triston Edmondson MD Medical Decision Making Impression and Plan A: 82 y/o M with C3 ankylosing spondylitis fracture extending through the anterior to posterior aspect of vertebral body as well as right-sided facet. This is an unstable fracture. 2. Chronic dysphagia with esophageal strictures, despite multiple esophageal dilation attempts, along with some hoarseness. 3. Chronic atrial fibrillation, on Coumadin therapy. 4. Coronary artery disease, status post coronary artery bypass grafting with complaints of dyspnea with exertion. 5. Diabetes mellitus. 6. Unregulated hypertension. Plan: Continue with cervical collar Continue to get oob and ambulate with PT Cardiology consult for cardiac clearance for possible anterior cervical fusion. Umang Spivey Dec 27, 2017 9:53 am
[2017-12-27 13:37] LABS: INTERNATIONAL NORMALIZED RATIO 1.5 RATIO; PROTHROMBIN TIME - PATIENT 15.4 SEC (9.8-11.6)
[2017-12-27 14:07] LABS: BICARBONATE 29.7 MEQ/L (21.0-32.0); CALCIUM 8.8 MG/DL (8.5-10.1); CREATININE 1.57 MG/DL (0.60-1.30)
--- NOTE | 2017-12-27 14:41 | HHI.PR ---
Subjective Subjective Notes No complaints Denies pain Objective Vitals/I&O Vital Signs Date Time Temp Pulse Resp B/P (MAP) Pulse Ox O2 Delivery O2 Flow Rate FiO2 12/27/17 12:00 43 12/27/17 12:00 98.4 21 137/65 (89) 98 12/27/17 10:12 21 12/25/17 07:00 Room Air 12/24/17 07:00 2.00 Labs Laboratory Tests Test 12/27/17 13:15 Prothrombin Time 15.4 Prothromb Time International Ratio 1.5 Blood Urea Nitrogen 32 Creatinine 1.57 Random Glucose 131 Calcium Level 8.8 Sodium Level 140 Potassium Level 4.4 Chloride Level 107 Carbon Dioxide Level 29.7 Anion Gap 3 Estimat Glomerular Filtration Rate 43 Radiology Last Impressions Carotid Artery Ultrasound 12/25/17 0000 Signed Impressions: Service Date/Time: Monday, December 25, 2017 17:51 - CONCLUSION: No evidence for hemodynamically significant stenosis of either carotid artery. Unable to visualize the right vertebral artery. Angel Luis Elias MD Chest X-Ray 12/24/17 0000 Signed Impressions: Service Date/Time: Sunday, December 24, 2017 00:48 - CONCLUSION: No acute abnormality demonstrated. Triston Marks MD Cervical Spine MRI 12/24/17 0000 Signed Impressions: Service Date/Time: Sunday, December 24, 2017 13:37 - CONCLUSION: Oblique fracture again noted through the C3 vertebral body and anterior bridging osteophyte with marrow edema and no retropulsion. No extradural fluid collections or hematoma identified. There is antegrade vertebral soft tissue swelling. The cervical cord is intact. True Feliz MD Cervical Spine CT 12/23/17 Signed Impressions: Service Date/Time: November 22:34 - CONCLUSION: 1. Oblique fracture through the C3 vertebral body and the exuberant osteophytes anteriorly at the C2-3 level. 2. Exuberant fused osteophytes extending from C2-T2 with an articulation at the T1-T2 level. There is acute fracture at the C2-3 level through these osteophytes. 3. Degenerative change as described above. This information was relayed by telephone to Dr. Barrera. Triston Edmondson MD Head CT 12/23/175 Signed Impressions: Service Date/Time: November 22:34 - CONCLUSION: 1. No acute intracranial abnormality. 2. Atrophy. 3. Frontal scalp hematomas being worse on the right. Triston Edmondson MD Narrative Exam GENERAL: 82 year old well-nourished male OOB in chair with cervical collar in place. SKIN: Warm and dry. Scattered abrasions. Hematoma noted on forehead. HEAD:Normocephalic. ENT: No nasal bleeding or discharge. Mucous membranes pink and moist. NECK: Trachea midline. No JVD. [place] J collar. CARDIOVASCULAR: Regular rate and rhythm. RESPIRATORY: No accessory muscle use. Clear to auscultation. Breath sounds equal bilaterally. GASTROINTESTINAL: Abdomen soft, non-tender, nondistended. + BS MUSCULOSKELETAL: Extremities without cyanosis, or edema. MAEW, + perfused NEUROLOGICAL: Awake and alert. Normal speech. A/P Assessment and Plan [place]: Fell from the standing position when his dog pulled on the leash and was dragged on the ground for 12-15 feet. No LOC. On Coumadin for A-fib. INJURIES: Scalp hematoma C2-3 fxs PMHx: A-fib, arthritis, CAD, DM, HLD, HTN, [place] x3, CABG in 2004, gout Scalp hematoma Supportive care C2-3 fxs Neurosurgery consulted [place] J collar Conservative vs surgical intervention is being determined Cardiology consulted for surgical clearance Pain control Bowel regimen OOB- PT ordered HTN Home meds resumed: Norvasc, Coreg, Vasotec PRN PO Clonidine Plan of care discussed with patient at bedside. Collaborating Trauma MD agrees with plan. Case management consulted to assist with discharge planning. Attending Statement The exam, history, and the medical decision-making described in the above note were completed with the assistance of the mid-level provider. I reviewed and agree with the findings presented. I attest that I had a [id number] encounter with the patient on the same day, and personally performed and documented my assessment and findings in the medical record. Baldev Palma Dec 27, 2017 14:41 Harlan Covington MD Dec 28, 2017 11:33
--- NOTE | 2017-12-27 15:34 | MB ---
cc: Wilmer Lundberg MD DATE: 12/27/2017 DATE OF : 1935 REASON FOR CONSULTATION: Cardiac clearance, history of coronary artery disease, bradycardia. HISTORY OF PRESENT ILLNESS: The patient is an 82-year-old white male, followed in our office by Dr. Simin Parra, with a history of multiple medical problems including coronary artery disease, borderline diabetes, hypertension, transient ischemic attacks, chronic atrial tachycardia/flutter who was brought to the hospital after sustaining a C3 fracture, which resulted after his dog started chasing another dog causing the patient to fall and hit his head. The patient denies any recent chest pains, shortness of breath, dizziness, syncope, near syncope, palpitations. Chronically he has daily dependent edema. He also denies paroxysmal nocturnal dyspnea, recent flu symptoms. For the most part, he does stay active. He regularly works at [employer], and he does bowl once a week. PAST MEDICAL HISTORY: 1. Coronary artery disease status post bypass surgery 11/24/2004, including a left internal mammary artery to the LAD and 3 separate vein grafts to the diagonal, obtuse marginal, posterior descending artery. 2. Borderline diabetes. 3. Hypertension. 4. Gout. 5. 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 6. Benign prostatic hypertrophy. 7. Transient ischemic attacks 10/02/2011 and 07/14/2017. 8. 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 9. Chronic atrial tachycardia/flutter. PAST SURGICAL HISTORY: 1. Suprapubic prostatectomy 11/06/2011. 2. Coronary artery bypass grafting 11/24/2004. CURRENT CARDIAC MEDICATIONS: 1. Atorvastatin 40 mg p.o. at bedtime. 2. Amlodipine 10 mg p.o. daily. 3. Carvedilol 12.5 mg p.o. b.i.d. 4. Enalapril 40 mg p.o. daily at home. 5. At home he also takes warfarin and aspirin, which are on hold in anticipation of possible surgery. ALLERGIES: NO KNOWN DRUG ALLERGIES. FAMILY HISTORY: Noncontributory. SOCIAL HISTORY: The patient quit smoking and quit drinking alcohol more than 40 years ago. REVIEW OF SYSTEMS: As in history of present illness, otherwise negative or noncontributory. He also denies headache, visual changes, abdominal pain, melena, dyspepsia, bright red blood per rectum. PHYSICAL EXAMINATION: VITAL SIGNS: His blood pressure 137/65 with a pulse of 43, respirations 20. GENERAL: He is a well-developed, well-nourished white male, in no acute distress. HEENT/NECK: Cervical collar is in place. CHEST: Reveals clear lungs rendon. CARDIAC: He has an irregular, bradycardic rhythm without S3 or murmur. ABDOMEN: He has a soft, obese, nontender. Bowel sounds are present. There is no definite hepatosplenomegaly. EXTREMITIES: Reveals no clubbing or cyanosis. There is trace pretibial edema bilaterally as well as chronic venous stasis changes. LABORATORY DATA: EKG shows atrial tachycardia with variable AV conduction, anterior infarct, age undetermined, nonspecific T-wave abnormalities. LABORATORY DATA: Includes normal CBC. Potassium 4.4, BUN 32, creatinine 1.57. CK 105. INR 1.5. Chest x-ray shows no acute disease. ASSESSMENT AND PLAN: 82-year-old white male with a history of coronary artery disease status post bypass surgery in 2004, history of diabetes, hypertension, carcinoid duodenal tumor removal, chronic atrial tachycardia/flutter., admitted status post a fall resulting in C3 fracture. He is now being considered for neurosurgical intervention, and I have been asked to see the patient for cardiac clearance. Although he has had no recent angina symptoms, his overall level of exertion on a daily basis is fairly low. Echocardiogram this admission apparently shows normal left ventricular function with no major valvular disease. He has had no difficulties with congestive heart failure in the past. With respect to his atrial tachycardia, it does appear to be chronic. He does have periodic bradycardia here in the hospital. RECOMMENDATIONS: 1. Reduce his carvedilol dosing to 3.125 mg b.i.d. 2. Check a nuclear stress test to evaluate for any myocardial ischemia. 3. Would try and minimize the time off warfarin and aspirin. 4. Will review his echo. MD SONIA Wise/WILLIAM , 02:57 PM , 03:33 PM IVELISSE
[2017-12-27] MEDS: CARVEDILOL 3.125 MG TAB PO SCH (20:42)
[2017-12-27] MEDS: ATORVASTATIN 40 MG TAB PO SCH (20:42)
[2017-12-28] VITALS (10 sets, daily range): BP systolic 139–180; BP diastolic 70–81; PULSE 52–62; RESP 17–20; TEMP 97.3–98.1; O2SAT 97–99
[2017-12-28] MEDS: PANTOPRAZOLE SOD 40 MG DELAYED RELEASE TAB PO SCH (07:56)
[2017-12-28] MEDS: ENALAPRIL MALEATE 10 MG TAB PO SCH (07:57)
[2017-12-28] MEDS: ALLOPURINOL 300 MG TAB PO SCH (07:57)
[2017-12-28] MEDS: INSULIN NovoLIN REGULAR SUPPLEMENTAL SCALE SQ SCH ×4 (07:57→21:00)
[2017-12-28] MEDS: CARVEDILOL 3.125 MG TAB PO SCH (07:57)
[2017-12-28] MEDS: DOCUSATE SODIUM 50 MG/SENNA 8.6 MG TAB PO SCH ×2 (07:58→21:07)
[2017-12-28] MEDS: SODIUM CHLORIDE 0.9% FLUSH 10 ML FLUSH IV FLUSH SCH ×2 (07:58→21:06)
--- NOTE | 2017-12-28 08:22 | PD.CARD.PN ---
Subjective Subjective Remarks No CP, dizziness, dyspnea. Objective Medications Item Value Date Time Carvedilol 3.125 mg 12/27/172099 (Coreg) BID/PO 12/28/17756 Atorvastatin 40 mg 12/24/172099 Calcium HS/PO 12/27/172041 (Lipitor) Amlodipine 10 mg 12/24/17899 Besylate DAILY/PO 12/28/17756 (Norvasc) Enalapril Maleate 40 mg 12/24/17899 (Vasotec) DAILY/PO 12/28/17756 Current Medications Medications (Trade) Dose Ordered Sig/Rekha Route Start Time Stop Time Status Last Admin (Zyloprim) 150 mg DAILY PO 12/24/17 09:00 12/28/17 07:57 (Norvasc) 10 mg DAILY PO 12/24/17 09:00 12/28/17 07:57 (Lipitor) 40 mg HS PO 12/24/17 21:00 12/27/17 20:42 (Vasotec) 40 mg DAILY PO 12/24/17 09:00 12/28/17 07:57 (NS Flush) 2 ml UNSCH PRN IV FLUSH 12/24/17 00:30 (NS Flush) 2 ml BID IV FLUSH 12/24/17 09:00 12/28/17 07:58 (Mag-Al Plus Susp Liq) 30 ml Q6H PRN PO 12/24/17 00:30 (Protonix) 40 mg DAILY PO 12/24/17 09:00 12/28/17 07:56 (Zofran Inj) 4 mg Q6H PRN IV PUSH 12/24/17 00:30 Potassium Chloride 100 ml @ 50 mls/hr UNSCH PRN IV 12/24/17 00:30 ([place] 10-325 Mg) 1 tab Q4H PRN PO 12/24/17 00:30 (Morphine Inj) 2 mg Q2H PRN IV PUSH 12/24/17 00:30 (Catapres) 0.1 mg Q6H PRN PO 12/24/17 00:30 (Tylenol) 650 mg Q4H PRN PO 12/24/17 00:30 ([place]) 1 lozenge UNSCH PRN BUCCAL 12/24/17 00:30 12/26/17 11:34 (Albuterol Neb) 2.5 mg Q4HR NEB PRN NEB 12/24/17 00:30 (Breana-Colace) 1 tab BID PO 12/24/17 09:00 12/26/17 08:00 (Milk Of Magnesia Liq) 30 ml Q12H PRN PO 12/24/17 00:30 (Senokot) 17.2 mg Q12H PRN PO 12/24/17 00:30 (Dulcolax Supp) 10 mg DAILY PRN RECTAL 12/24/17 00:30 (Lactulose Liq) 30 ml DAILY PRN PO 12/24/17 00:30 (D50w (Vial) Inj) 50 ml UNSCH PRN IV PUSH 12/24/17 00:30 (Glucagon Inj) 1 mg UNSCH PRN OTHER 12/24/17 00:30 (NovoLIN R SUPPLEMENTAL SCALE) 1 ACHS SLIDING SCALE SQ 12/24/17 08:00 12/27/17 20:43 ([place] 5-325 Mg) 1 tab Q4H PRN PO 12/26/17 06:15 (Coreg) 3.125 mg BID PO 12/27/17 21:00 12/28/17 07:57 Vital Signs / I&O Vital Signs Date Time Temp Pulse Resp B/P (MAP) Pulse Ox O2 Delivery O2 Flow Rate FiO2 12/28/17 05:50 97.5 57 17 162/75 (104) 98 12/28/17 00:42 98.1 58 17 147/81 (103) 97 12/27/17 20:38 98.1 52 17 173/77 (109) 97 12/27/17 20:08 50 12/27/17 20:06 21 12/27/17 16:00 98.0 54 18 137/67 (90) 98 12/27/17 12:00 43 12/27/17 12:00 98.4 38 21 137/65 (89) 98 12/27/17 10:12 97 21 12/27/17 08:45 98.8 56 18 133/63 (86) 97 I/O 12/27/17 12/27/17 12/27/17 12/28/17 12/28/17 12/28/17 07:00 15:00 23:00 07:00 15:00 23:00 Intake Total 240 ml 240 ml Balance 240 ml 240 ml Intake Oral 240 ml 240 ml # Voids 2 3 Physical Exam GENERAL: Well developed, well nourished. No acute distress. HEENT: Jugular venous pressure is normal. CHEST: Lungs clear to auscultation bilaterally. Unlabored respiratory effort. CARDIAC: Irregular rate and rhythm without S3, S4, or murmur. ABDOMEN: Soft, nontender, no hepatosplenomegaly. Bowel sounds present. EXTREMITIES: No clubbing, cyanosis, or edema. Chronic venous stasis changes. Laboratory Laboratory Tests Test 12/27/17 13:15 Prothrombin Time 15.4 SEC Prothromb Time International Ratio 1.5 RATIO Blood Urea Nitrogen 32 MG/DL Creatinine 1.57 MG/DL Random Glucose 131 MG/DL Calcium Level 8.8 MG/DL Sodium Level 140 MEQ/L Potassium Level 4.4 MEQ/L Chloride Level 107 MEQ/L Carbon Dioxide Level 29.7 MEQ/L Anion Gap 3 MEQ/L Estimat Glomerular Filtration Rate 43 ML/MIN Assessment and Plan Problem List: (1) CAD (coronary artery disease) ICD Codes: I25.10 - Atherosclerotic heart disease of [place] coronary artery without angina pectoris Status: Chronic Plan: Stable overnight. No recent angina symptoms. For nuclear stress test this morning for preoperative cardiac risk assessment. (2) Chronic ectopic atrial tachycardia ICD Codes: I47.1 - Supraventricular tachycardia Status: Chronic Plan: ~4 second pause overnight. Will stop carvedilol. Resume anticoagulation therapy when possible. Code Status full code Discussed Condition With patient Problem Qualifiers (1) CAD (coronary artery disease): Qualified Codes: I25.10 - Atherosclerotic heart disease of [place] coronary artery without angina pectoris Wilmer Lundberg MD Dec 28, 2017 08:22
--- NOTE | 2017-12-28 09:26 | HHI.NSPN ---
(Umang Spivey) History Chief Complaint: Pt states neck pain controlled. (Umang Spivey) Interval History 12/24: An 82-year-old gentleman, who presented to [facility] Emergency Room last evening after he was dragged by his large dog, was chasing another dog, fell forward and was dragged about 15 feet with his head on the grass. He denies loss of consciousness. He complains of neck pain, but denies any radiation to the upper or lower extremities. He has chronic low back pain. The CT scan of the cervical spine obtained reveals what appears to be an ankylosing spondylitis. Fusion extends from C2-C7 level with anterior osteophytes and fusion as well as facet fusion. There is a fracture that extends from the inferior aspect of the C2 vertebral body anterior osteophyte through the mid body of the C3 and also involving the right C3 facet consistent with an ankylosing spondylitis break. He was maintained in a cervical collar and transferred to [facility] main intensive care unit for further management. Overnight, he has not had any change in symptoms. He denies feeling lightheaded or dizzy either prior to or subsequent to this fall. He was very hypertensive in the emergency room and was placed on a Cardene drip after p.r.n. IV medications were not effective in controlling his hypertension. He is also on Coumadin for his atrial fibrillation. CT of the head is negative for any intracranial abnormality. 12/25: The patient is sitting up in the chair when seen this afternoon. The only time he has pain to the back of the neck is if he will move it some, then he will have a little pain that lasts for a brief time and resolves on its own. He denies any continuous midline neck pain. He denies any headache or dizziness. He has no pain, numbness or tingling to the extremities. He is neurologically intact when examined. 12/26: The patient has been transferred to a regular med/surg floor since he was last seen. He was in bed "half asleep" but woke up to voice. After that he was alert. He has occasional pain to the neck briefly if he moves it and it will resolve without intervention. He has no headache, dizziness or visual problems. He denies any extremity pain, numbness or tingling. There is no change in his neuro exam upon evaluation. 12/27/17: Pt awake and alert. Sitting up in chair. States neck pain controlled. He denies any radiculopathy or paresthesias in UEs. He moves UEs with good strength. Right periorbital edema improved. 12/28/17: Pt awake and alert. Sitting up in chair. States occasional neck twinge but no radiculopathy or paresthesias in UEs. No weakness in UEs. (Umang Spivey) Review of Systems General: Negative for: fever, chills, insomnia Respiratory: Negative for: shortness of breath, cough, sputum Cardiovascular: Negative for: chest pain Gastrointestinal: Negative for: nausea, vomitting, diarrhea, constipation ( Umang Spivey) Exam Results Vital Signs Date Time Temp Pulse Resp B/P (MAP) Pulse Ox O2 Delivery O2 Flow Rate FiO2 12/28/17 08:00 97.7 56 20 139/74 (95) 97 12/27/17 20:06 21 12/25/17 07:00 Room Air 12/24/17 07:00 2.00 (Umang Spivey) Physical Examination General: Pt sitting up in chair with cervical collar in place in NAD. Eyes: Right periorbital edema improved. Pupils equal. Sclera anicteric. Right periorbital ecchymosis present. Resp: CTA bilaterally Heart: NSR no murmurs Abd: Soft positive bs Skin: Right forehead ecchymosis and edema. Right periorbital ecchymosis. Muscle: Moves all 4 extremities with good strength. Neuro: Pt awake and alert. Sitting up in chair. Follows commands well. Sensation intact in UEs. Speech fluent and comprehension good. (Umang Spivey) Lab, Micro, Other Results Last Impressions Carotid Artery Ultrasound 12/25/17 0000 Signed Impressions: Service Date/Time: Monday, December 25, 2017 17:51 - CONCLUSION: No evidence for hemodynamically significant stenosis of either carotid artery. Unable to visualize the right vertebral artery. Angel Luis Elias MD Chest X-Ray 12/24/17 0000 Signed Impressions: Service Date/Time: Sunday, December 24, 2017 00:48 - CONCLUSION: No acute abnormality demonstrated. Triston Marks MD Cervical Spine MRI 12/24/17 0000 Signed Impressions: Service Date/Time: Sunday, December 24, 2017 13:37 - CONCLUSION: Oblique fracture again noted through the C3 vertebral body and anterior bridging osteophyte with marrow edema and no retropulsion. No extradural fluid collections or hematoma identified. There is antegrade vertebral soft tissue swelling. The cervical cord is intact. True Feliz MD Cervical Spine CT 12/23/172203 Signed Impressions: Service Date/Time: November 22:34 - CONCLUSION: 1. Oblique fracture through the C3 vertebral body and the exuberant osteophytes anteriorly at the C2-3 level. 2. Exuberant fused osteophytes extending from C2-T2 with an articulation at the T1-T2 level. There is acute fracture at the C2-3 level through these osteophytes. 3. Degenerative change as described above. This information was relayed by telephone to Dr. Barrera. Triston Edmondson MD Head CT 12/23/172157 Signed Impressions: Service Date/Time: November 22:34 - CONCLUSION: 1. No acute intracranial abnormality. 2. Atrophy. 3. Frontal scalp hematomas being worse on the right. Triston Edmondson MD Laboratory Tests Test 12/27/17 13:15 Prothrombin Time 15.4 SEC Prothromb Time International Ratio 1.5 RATIO Blood Urea Nitrogen 32 MG/DL Creatinine 1.57 MG/DL Random Glucose 131 MG/DL Calcium Level 8.8 MG/DL Sodium Level 140 MEQ/L Potassium Level 4.4 MEQ/L Chloride Level 107 MEQ/L Carbon Dioxide Level 29.7 MEQ/L Anion Gap 3 MEQ/L Estimat Glomerular Filtration Rate 43 ML/MIN (Umang Spivey) Medical Decision Making Impression and Plan A: 82 y/o M with C3 ankylosing spondylitis fracture extending through the anterior to posterior aspect of vertebral body as well as right-sided facet. This is an unstable fracture. 2. Chronic dysphagia with esophageal strictures, despite multiple esophageal dilation attempts, along with some hoarseness. 3. Chronic atrial fibrillation, on Coumadin therapy. 4. Coronary artery disease, status post coronary artery bypass grafting with complaints of dyspnea with exertion. 5. Diabetes mellitus. 6. Unregulated hypertension. Plan: Continue with cervical collar Continue to get oob and ambulate with PT Cardiology testing today to see if pt candidate for spine surgery. (Umang Spivey) Attending Statement The exam, history, and the medical decision-making described in the above note were completed with the assistance of the mid-level provider. I reviewed and agree with the findings presented. I attest that I had a [id number] encounter with the patient on the same day, and personally performed and documented my assessment and findings in the medical record. Patient is down nuclear medicine for thallium cardiac stress test. May need to consider nonsurgical management of his cervical fracture given he is likely at high risk for cardiac complications along with other comorbidities. (John Roach MD) Umang Spivey Dec 28, 2017 09:26 John Roach MD Dec 28, 2017 16:43
--- NOTE | 2017-12-28 12:38 | HHI.PR ---
Subjective Subjective Notes PTD: 5 Patient OOB and in a stretcher. Awaiting to travel for stress test. Patient states, "I am okay. I am not in much pain." Patient moves all extremities well and states that he had been walking in the hallways. Objective Vitals/I&O Vital Signs Date Time Temp Pulse Resp B/P (MAP) Pulse Ox O2 Delivery O2 Flow Rate FiO2 12/28/17 08:00 97.7 56 20 139/74 (95) 97 12/27/17 20:06 21 12/25/17 07:00 Room Air 12/24/17 07:00 2.00 Labs Laboratory Tests Test 12/27/17 13:15 Prothrombin Time 15.4 Prothromb Time International Ratio 1.5 Blood Urea Nitrogen 32 Creatinine 1.57 Random Glucose 131 Calcium Level 8.8 Sodium Level 140 Potassium Level 4.4 Chloride Level 107 Carbon Dioxide Level 29.7 Anion Gap 3 Estimat Glomerular Filtration Rate 43 Narrative Exam GENERAL: This is a 82-year-old male lying in a stretcher. No distress noted. SKIN: Warm and dry. Scattered road rash abrasions. HEAD: Atraumatic. Normocephalic. EYES: PERRLA. Right eye with slight ecchymosis ENT: No nasal bleeding or discharge. Mucous membranes pink and moist. NECK: Trachea midline. No JVD. [place] J collar in place. CARDIOVASCULAR: Regular rate and rhythm. RESPIRATORY: No accessory muscle use. Lungs are clear to auscultation. Breath sounds equal bilaterally. No distress or dyspnea. GASTROINTESTINAL: BS + x 4 quads. Abdomen soft, non-tender, nondistended. MUSCULOSKELETAL: Extremities without cyanosis, or edema. + peripheral pulses x 4 extremities. Warm with good capillary refill and sensation. MAEW. NEUROLOGICAL: Awake and alert. Normal speech and pattern. A/P Problem List: (1) Scalp hematoma ICD Codes: S00.03XA - Contusion of scalp, initial encounter Status: Acute (2) Cervical spine fracture ICD Codes: S12.9XXA - Fracture of neck, unspecified, initial encounter Status: Acute (3) CAD (coronary artery disease) ICD Codes: I25.10 - Atherosclerotic heart disease of [place] coronary artery without angina pectoris Status: Chronic Assessment and Plan GALENA: This is a 82-year-old male who fell from a standing position when his dog pulled on the leash and he was dragged on the ground for 12-15 feet. No LOC. He is on Coumadin and aspirin for A. fib. INJURIES: Scalp hematoma C2-3 fxs PMHx: Afib, arthritis, CAD, DM, HLD, HTN, CO x3, CABG in 2004, gout Procedures: 12/28: Myocardial perfusion scan Consults: Neurosurgery. Cardiology. Rehab medicine. Case management. Myocardial perfusion scan today -in order to obtain cardiac clearance for planned for neurosurgery Diet: 1800 ADA diet. Tolerating po diet. Encourage good po intake with each meal. Pulmonary: Encourage good pulmonary toileting. IS at bedside and pt encouraged to use. Rationale for use explained to patient, and verbalized understanding. PAIN Management: [place] 5-10 q 4h, Morphine 2mg q 2h Activity: OOB. PT ordered. GI prophylaxis: PO Protonix Bowel regimen: Breana-colace. MOM PRN. Lactulose PRN. Senna PRN. Bisacodyl PRN. LBM: 12/26 DVT prophylaxis: Mechanical VTE with SCDs. Chemical management with TBD pending plan for surgery. DC Planning: Case management consulted for assistance with final discharge disposition. Emotional support provided to patient and family at bedside and plan of care discussed. Discussed with RN at bedside. Discussed pt condition and plan of care with collaborating trauma surgeon. Patient is hemodynamically stable and being managed on the med/surg floor. The trauma team will round each day, and evaluate plan of care on a daily basis. C2-3 fxs Neurosurgery consulted and assisting in management and care [place] J collar at all times Conservative vs surgical intervention is being determined Cardiology consulted for surgical clearance Pain control Bowel regimen Encourage OOB PT ordered Carotid ultrasound -no stenosis HTN CAD CO 3 CABG Vital signs every 4 hours Home meds resumed: Norvasc, Coreg, Vasotec PRN PO Clonidine Cardiology consulted -for surgical clearance 4/3: Myocardial perfusion scan - Attending Statement The exam, history, and the medical decision-making described in the above note were completed with the assistance of the mid-level provider. I reviewed and agree with the findings presented. I attest that I had a [id number] encounter with the patient on the same day, and personally performed and documented my assessment and findings in the medical record. Problem Qualifiers (1) Scalp hematoma: Qualified Codes: S00.03XA - Contusion of scalp, initial encounter (2) Cervical spine fracture: (3) CAD (coronary artery disease): Qualified Codes: I25.10 - Atherosclerotic heart disease of [place] coronary artery without angina pectoris Akua Burk Dec 28, 2017 12:38 Harlan Covington MD Dec 28, 2017 14:31
[2017-12-28] MEDS ORDERED: REGADENOSON INJ 0.4 MG/5 ML SYR ONE (14:09)
[2017-12-28] MEDS ORDERED: ARTIFICIAL TEARS OPTH SOLN 15 ML BTL EACH EYE PRN (14:30)
--- NOTE | 2017-12-28 15:49 | RADRPT ---
EXAM DATE/TIME: 12/28/2017 14:02 [place] COMPARISON: No previous studies available for comparison. INDICATIONS : Risk stratification prior to general anesthsia. Coronary artery disease. Atrial fibrillation. DOSE: 30.0 mCi Tc99m Myoview at stress. 10.0 mCi Tc99m Myoview at rest. 0.4 mg Lexiscan STRESS SYMPTOMS: None. EJECTION FRACTION: 33% MEDICAL HISTORY : Myocardial infarction. Stroke Diabetes mellitus type 2. SURGICAL HISTORY : CABG ENCOUNTER: Initial ACUITY: 1 day PAIN SCALE: 2/10 LOCATION: Left chest TECHNIQUE: The patient underwent pharmacologic stress with infusion of prescribed dose. Continuous ECG tracing was monitored during stress. Gated SPECT imaging was performed after stress and conventional SPECT i maging was performed at rest. The examination was performed on a SPECT/CT scanner, both attenuation and non-corrected datasets were reviewed. FINDINGS: DISTRIBUTION: The maximum perfused segment at stress is in the anterolateral wall. PERFUSION STUDY: There is a moderate size marked severity fixed defect involving the apex. There is also a moderate si ze marked severity fixed defect involving the apical segment of the anterior wall. No reversible isch emic segments are identified. GATED STUDY: There is global hypokinesis with dyskinesia at the apex. CONCLUSION: Global hypokinesis with dyskinesia at the apex and a decreased ejection fraction of 33%. Moderate siz e marked severity fixed defects involving the apical segment of the anterior wall and the apex. No re versible ischemic segments are identified. RISK CATEGORY: High (>3% Annual Mortality Rate) Dinh Fajardo MD on December 28, 2017 at 15:45 Board Certified Radiologist. This report was verified electronically.
[2017-12-28] MEDS: ATORVASTATIN 40 MG TAB PO SCH (21:06)
[2017-12-29] VITALS: BP 167/75; PULSE 52; RESP 18; TEMP 98.3; O2SAT 96
[2017-12-29 04:00] VITALS: BP 182/82; PULSE 55; RESP 18; TEMP 97.1; O2SAT 98
[2017-12-29 04:13] LABS: AUTOMATED NEUTROPHIL # 8.4 TH/MM3 (1.8-7.7); BASOPHIL # 0.1 TH/MM3 (0-0.2); BASOPHIL % 0.6 % (0.0-2.0); EOSINOPHIL # 0.4 TH/MM3 (0-0.4); EOSINOPHIL % 3.8 % (0.0-4.0); HEMATOCRIT 39.6 % (39.0-51.0); HEMOGLOBIN 13.4 GM/DL (13.0-17.0); LYMPH % 8.9 % (9.0-44.0); LYMPHOCYTE # 0.9 TH/MM3 (1.0-4.8); MEAN CELL VOLUME 84.3 FL (80.0-100.0); MEAN CORPUSCULAR HEMOGLOBIN 28.5 PG (27.0-34.0); MEAN CORPUSCULAR HGB CONC 33.8 % (32.0-36.0); MEAN PLATELET VOLUME 9.2 FL (7.0-11.0); MONO % 6.5 % (0.0-8.0); MONOCYTE # 0.7 TH/MM3 (0-0.9); NEUT % 80.2 % (16.0-70.0); PLATELET COUNT 198 TH/MM3 (150-450); RED CELL DISTRIBUTION WIDTH 16.2 % (11.6-17.2); WHITE BLOOD COUNT 10.4 TH/MM3 (4.0-11.0)
[2017-12-29 04:36] LABS: BICARBONATE 29.8 MEQ/L (21.0-32.0); CALCIUM 8.9 MG/DL (8.5-10.1); CREATININE 1.52 MG/DL (0.60-1.30)
[2017-12-29 07:45] VITALS: BP 123/71; PULSE 54; RESP 18; TEMP 98.1; O2SAT 98
[2017-12-29] MEDS: INSULIN NovoLIN REGULAR SUPPLEMENTAL SCALE SQ SCH ×4 (08:00→21:00)
--- NOTE | 2017-12-29 08:14 | PD.CARD.PN ---
Subjective Subjective Remarks No CP, dizziness, palpitations, dyspnea. Slept poorly. Objective Medications Item Value Date Time Atorvastatin 40 mg 12/24/172099 Calcium HS/PO 12/28/172105 (Lipitor) Amlodipine 10 mg 12/24/17899 Besylate DAILY/PO 12/28/17756 (Norvasc) Enalapril Maleate 40 mg 12/24/17 09 (Vasotec) DAILY/PO 12/28/17756 Current Medications Medications (Trade) Dose Ordered Sig/Rekha Route Start Time Stop Time Status Last Admin (Zyloprim) 150 mg DAILY PO 12/24/17 09:00 12/28/17 07:57 (Norvasc) 10 mg DAILY PO 12/24/17 09:00 12/28/17 07:57 (Lipitor) 40 mg HS PO 12/24/17 21:00 12/28/17 21:06 (Vasotec) 40 mg DAILY PO 12/24/17 09:00 12/28/17 07:57 (NS Flush) 2 ml UNSCH PRN IV FLUSH 12/24/17 00:30 (NS Flush) 2 ml BID IV FLUSH 12/24/17 09:00 12/28/17 21:06 (Mag-Al Plus Susp Liq) 30 ml Q6H PRN PO 12/24/17 00:30 (Protonix) 40 mg DAILY PO 12/24/17 09:00 12/28/17 07:56 (Zofran Inj) 4 mg Q6H PRN IV PUSH 12/24/17 00:30 Potassium Chloride 100 ml @ 50 mls/hr UNSCH PRN IV 12/24/17 00:30 ([place] 10-325 Mg) 1 tab Q4H PRN PO 12/24/17 00:30 (Morphine Inj) 2 mg Q2H PRN IV PUSH 12/24/17 00:30 (Catapres) 0.1 mg Q6H PRN PO 12/24/17 00:30 (Tylenol) 650 mg Q4H PRN PO 12/24/17 00:30 ([place] Eric) 1 lozenge UNSCH PRN BUCCAL 12/24/17 00:30 12/26/17 11:34 (Albuterol Neb) 2.5 mg Q4HR NEB PRN NEB 12/24/17 00:30 (Breana-Colace) 1 tab BID PO 12/24/17 09:00 12/28/17 21:07 (Milk Of Magnesia Liq) 30 ml Q12H PRN PO 12/24/17 00:30 (Senokot) 17.2 mg Q12H PRN PO 12/24/17 00:30 (Dulcolax Supp) 10 mg DAILY PRN RECTAL 12/24/17 00:30 (Lactulose Liq) 30 ml DAILY PRN PO 12/24/17 00:30 (D50w (Vial) Inj) 50 ml UNSCH PRN IV PUSH 12/24/17 00:30 (Glucagon Inj) 1 mg UNSCH PRN OTHER 12/24/17 00:30 (NovoLIN R SUPPLEMENTAL SCALE) 1 ACHS SLIDING SCALE SQ 12/24/17 08:00 12/27/17 20:43 ([place] 5-325 Mg) 1 tab Q4H PRN PO 12/26/17 06:15 (Tears Naturale Opth Soln) 1 drop Q4H PRN EACH EYE 12/28/17 14:30 Vital Signs / I&O Vital Signs Date Time Temp Pulse Resp B/P (MAP) Pulse Ox O2 Delivery O2 Flow Rate FiO2 12/29/17 07:45 98.1 54 18 123/71 (88) 98 Manual Cuff/Auscultation 12/29/17 04:00 97.1 55 18 182/82 (115) 98 12/29/17 00:00 98.3 52 18 167/75 (105) 96 12/28/17 23:00 52 12/28/17 20:00 97.3 62 18 156/72 (100) 99 12/28/17 17:07 150/70 (96) 12/28/17 16:54 97.6 57 19 180/79 (112) 99 12/28/17 13:39 98 12/28/17 12:38 98.1 53 17 175/79 (111) 98 12/28/17 12:00 56 I/O 12/28/17 12/28/17 12/28/17 12/29/17 12/29/17 12/29/17 07:00 15:00 23:00 07:00 15:00 23:00 Intake Total 240 ml 480 ml Balance 240 ml 480 ml Intake Oral 240 ml 480 ml # Voids 3 4 4 Physical Exam GENERAL: Well developed, well nourished. No acute distress. HEENT: Jugular venous pressure is normal. CHEST: Lungs clear to auscultation bilaterally. Unlabored respiratory effort. CARDIAC: Irregular rate and rhythm without S3, S4, or murmur. ABDOMEN: Soft, nontender, no hepatosplenomegaly. Bowel sounds present. EXTREMITIES: No clubbing, cyanosis, or edema. Chronic venous stasis changes. Laboratory Laboratory Tests Test 12/29/17 03:21 White Blood Count 10.4 TH/MM3 Red Blood Count 4.70 MIL/MM3 Hemoglobin 13.4 GM/DL Hematocrit 39.6 % Mean Corpuscular Volume 84.3 FL Mean Corpuscular Hemoglobin 28.5 PG Mean Corpuscular Hemoglobin Concent 33.8 % Red Cell Distribution Width 16.2 % Platelet Count 198 TH/MM3 Mean Platelet Volume 9.2 FL Neutrophils (%) (Auto) 80.2 % Lymphocytes (%) (Auto) 8.9 % Monocytes (%) (Auto) 6.5 % Eosinophils (%) (Auto) 3.8 % Basophils (%) (Auto) 0.6 % Neutrophils # (Auto) 8.4 TH/MM3 Lymphocytes # (Auto) 0.9 TH/MM3 Monocytes # (Auto) 0.7 TH/MM3 Eosinophils # (Auto) 0.4 TH/MM3 Basophils # (Auto) 0.1 TH/MM3 CBC Comment DIFF FINAL Differential Comment Blood Urea Nitrogen 30 MG/DL Creatinine 1.52 MG/DL Random Glucose 105 MG/DL Calcium Level 8.9 MG/DL Sodium Level 139 MEQ/L Potassium Level 4.2 MEQ/L Chloride Level 103 MEQ/L Carbon Dioxide Level 29.8 MEQ/L Anion Gap 6 MEQ/L Estimat Glomerular Filtration Rate 44 ML/MIN Imaging Last 48 hours Impressions Myocardial Perfusion Scan Nuc Med 12/28/17 0000 Signed Impressions: Service Date/Time: Thursday, December 28, 2017 14:02 - CONCLUSION: Global hypokinesis with dyskinesia at the apex and a decreased ejection fraction of 33%%. Moderate size marked severity fixed defects involving the apical segment of the anterior wall and the apex. No reversible ischemic segments are identified. RISK CATEGORY: High (>3%% Annual Mortality Rate) Dinh Fajardo MD Assessment and Plan Problem List: (1) CAD (coronary artery disease) ICD Codes: I25.10 - Atherosclerotic heart disease of [place] coronary artery without angina pectoris Status: Chronic Plan: Cardiac status stable. No recent angina symptoms. Nuclear stress test images reviewed, agree there are fixed apical and anteroapical defects c/w prior infarction. EF 33% is clearly inaccurate. Echo reviewed, clearly shows EF closer to low normal 50-55%. REC patient's risk of perioperative cardiovascular event is low to moderate, and mainly due to patient being off anticoagulation/antiplatelet therapy; if patient understands this risk, would proceed with neurosurgery resume aspirin when possible will f/u as needed (2) Chronic ectopic atrial tachycardia ICD Codes: I47.1 - Supraventricular tachycardia Status: Chronic Plan: Patient with number of asymptomatic up to 3.5 sec pauses though often when sleeping. Suspect he also has sleep apnea. Rec no pacemaker implant unless he develops symptoms attributable to bradycardia. Keep off carvedilol, any other AV joellen suppressing drugs. Resume anticoagulation therapy when possible. Code Status full code Discussed Condition With patient Problem Qualifiers (1) CAD (coronary artery disease): Qualified Codes: I25.10 - Atherosclerotic heart disease of [place] coronary artery without angina pectoris Wilmer Lundberg MD Dec 29, 2017 08:14
[2017-12-29] MEDS: PANTOPRAZOLE SOD 40 MG DELAYED RELEASE TAB PO SCH (08:53)
[2017-12-29] MEDS: ENALAPRIL MALEATE 10 MG TAB PO SCH (08:53)
[2017-12-29] MEDS: DOCUSATE SODIUM 50 MG/SENNA 8.6 MG TAB PO SCH ×2 (08:53→23:21)
[2017-12-29] MEDS: ALLOPURINOL 300 MG TAB PO SCH (08:53)
[2017-12-29] MEDS: SODIUM CHLORIDE 0.9% FLUSH 10 ML FLUSH IV FLUSH SCH ×2 (08:54→23:21)
--- NOTE | 2017-12-29 10:25 | HHI.NSPN ---
(Umang Spivey) History Chief Complaint: Pt states neck pain controlled. (Umang Spivey) Interval History 12/24: An 82-year-old gentleman, who presented to [facility] Emergency Room last evening after he was dragged by his large dog, was chasing another dog, fell forward and was dragged about 15 feet with his head on the grass. He denies loss of consciousness. He complains of neck pain, but denies any radiation to the upper or lower extremities. He has chronic low back pain. The CT scan of the cervical spine obtained reveals what appears to be an ankylosing spondylitis. Fusion extends from C2-C7 level with anterior osteophytes and fusion as well as facet fusion. There is a fracture that extends from the inferior aspect of the C2 vertebral body anterior osteophyte through the mid body of the C3 and also involving the right C3 facet consistent with an ankylosing spondylitis break. He was maintained in a cervical collar and transferred to [facility] main intensive care unit for further management. Overnight, he has not had any change in symptoms. He denies feeling lightheaded or dizzy either prior to or subsequent to this fall. He was very hypertensive in the emergency room and was placed on a Cardene drip after p.r.n. IV medications were not effective in controlling his hypertension. He is also on Coumadin for his atrial fibrillation. CT of the head is negative for any intracranial abnormality. 12/25: The patient is sitting up in the chair when seen this afternoon. The only time he has pain to the back of the neck is if he will move it some, then he will have a little pain that lasts for a brief time and resolves on its own. He denies any continuous midline neck pain. He denies any headache or dizziness. He has no pain, numbness or tingling to the extremities. He is neurologically intact when examined. 12/26: The patient has been transferred to a regular med/surg floor since he was last seen. He was in bed "half asleep" but woke up to voice. After that he was alert. He has occasional pain to the neck briefly if he moves it and it will resolve without intervention. He has no headache, dizziness or visual problems. He denies any extremity pain, numbness or tingling. There is no change in his neuro exam upon evaluation. 12/27/17: Pt awake and alert. Sitting up in chair. States neck pain controlled. He denies any radiculopathy or paresthesias in UEs. He moves UEs with good strength. Right periorbital edema improved. 12/28/17: Pt awake and alert. Sitting up in chair. States occasional neck twinge but no radiculopathy or paresthesias in UEs. No weakness in UEs. 12/29/17: Pt awake and alert. Sitting up in chair. States neck discomfort very tolerable, only occasional twinge. No radiculopathy or paresthesias in UEs. (Umang Spivey) Review of Systems General: Negative for: fever, chills, insomnia Respiratory: Negative for: shortness of breath, cough, sputum Cardiovascular: Negative for: chest pain Gastrointestinal: Negative for: nausea, vomitting, diarrhea, constipation ( Umang Spivey) Exam Results Vital Signs Date Time Temp Pulse Resp B/P (MAP) Pulse Ox O2 Delivery O2 Flow Rate FiO2 12/29/17 07:45 98.1 54 18 123/71 (88) 98 Manual Cuff/Auscultation 12/27/17 20:06 21 12/25/17 07:00 Room Air (Umang Spivey) Physical Examination General: Pt sitting up in chair with cervical collar in place in NAD. Eyes: Right periorbital edema improved. Pupils equal. Sclera anicteric. Right periorbital ecchymosis present. Resp: CTA bilaterally Heart: NSR no murmurs Abd: Soft positive bs Skin: Right forehead ecchymosis and edema. Right periorbital ecchymosis. Muscle: Moves all 4 extremities with good strength. Neuro: Pt awake and alert. Sitting up in chair. Follows commands well. Sensation intact in UEs. Speech fluent and comprehension good. (Umang Spivey) Lab, Micro, Other Results Last Impressions Myocardial Perfusion Scan Nuc Med 12/28/17 0000 Signed Impressions: Service Date/Time: Thursday, December 28, 2017 14:02 - CONCLUSION: Global hypokinesis with dyskinesia at the apex and a decreased ejection fraction of 33%%. Moderate size marked severity fixed defects involving the apical segment of the anterior wall and the apex. No reversible ischemic segments are identified. RISK CATEGORY: High (>3%% Annual Mortality Rate) Dinh Fajardo MD Carotid Artery Ultrasound 12/25/17 0000 Signed Impressions: Service Date/Time: Monday, December 25, 2017 17:51 - CONCLUSION: No evidence for hemodynamically significant stenosis of either carotid artery. Unable to visualize the right vertebral artery. Angel Luis Elias MD Chest X-Ray 12/24/17 0000 Signed Impressions: Service Date/Time: Sunday, December 24, 2017 00:48 - CONCLUSION: No acute abnormality demonstrated. Triston Marks MD Cervical Spine MRI 12/24/17 0000 Signed Impressions: Service Date/Time: Sunday, December 24, 2017 13:37 - CONCLUSION: Oblique fracture again noted through the C3 vertebral body and anterior bridging osteophyte with marrow edema and no retropulsion. No extradural fluid collections or hematoma identified. There is antegrade vertebral soft tissue swelling. The cervical cord is intact. True Feliz MD Cervical Spine CT 12/23/172203 Signed Impressions: Service Date/Time: November 22:34 - CONCLUSION: 1. Oblique fracture through the C3 vertebral body and the exuberant osteophytes anteriorly at the C2-3 level. 2. Exuberant fused osteophytes extending from C2-T2 with an articulation at the T1-T2 level. There is acute fracture at the C2-3 level through these osteophytes. 3. Degenerative change as described above. This information was relayed by telephone to Dr. Barrera. Triston Edmondson MD Head CT [id number] Signed Impressions: Service Date/Time: November 22:34 - CONCLUSION: 1. No acute intracranial abnormality. 2. Atrophy. 3. Frontal scalp hematomas being worse on the right. Triston Edmondson MD Laboratory Tests Test 12/29/17 03:21 White Blood Count 10.4 TH/MM3 Red Blood Count 4.70 MIL/MM3 Hemoglobin 13.4 GM/DL Hematocrit 39.6 % Mean Corpuscular Volume 84.3 FL Mean Corpuscular Hemoglobin 28.5 PG Mean Corpuscular Hemoglobin Concent 33.8 % Red Cell Distribution Width 16.2 % Platelet Count 198 TH/MM3 Mean Platelet Volume 9.2 FL Neutrophils (%) (Auto) 80.2 % Lymphocytes (%) (Auto) 8.9 % Monocytes (%) (Auto) 6.5 % Eosinophils (%) (Auto) 3.8 % Basophils (%) (Auto) 0.6 % Neutrophils # (Auto) 8.4 TH/MM3 Lymphocytes # (Auto) 0.9 TH/MM3 Monocytes # (Auto) 0.7 TH/MM3 Eosinophils # (Auto) 0.4 TH/MM3 Basophils # (Auto) 0.1 TH/MM3 CBC Comment DIFF FINAL Differential Comment Blood Urea Nitrogen 30 MG/DL Creatinine 1.52 MG/DL Random Glucose 105 MG/DL Calcium Level 8.9 MG/DL Sodium Level 139 MEQ/L Potassium Level 4.2 MEQ/L Chloride Level 103 MEQ/L Carbon Dioxide Level 29.8 MEQ/L Anion Gap 6 MEQ/L Estimat Glomerular Filtration Rate 44 ML/MIN 12/29/17 12/29/17 12/30/17 15:00 23:00 07:00 # Voids 4 (Umang Spivey) Medical Decision Making Impression and Plan A: 82 y/o M with C3 ankylosing spondylitis fracture extending through the anterior to posterior aspect of vertebral body as well as right-sided facet. This is an unstable fracture. 2. Chronic dysphagia with esophageal strictures, despite multiple esophageal dilation attempts, along with some hoarseness. 3. Chronic atrial fibrillation, on Coumadin therapy. 4. Coronary artery disease, status post coronary artery bypass grafting with complaints of dyspnea with exertion. 5. Diabetes mellitus. 6. Unregulated hypertension. Plan: Continue with cervical collar Continue to get oob and ambulate with PT Cardiology note reviewed. We will continue with cervical collar for now and pts anticoagulation has been resumed. Pt will follow up every 6 weeks with follow up x-rays. Discussed with pt importance of wearing cervical collar at all times and the restrictions of no pushing, pulling, lifting, or carrying anything. He cannot drive and should stay out of a vehicle unless he needs to see his physicians. He also needs to be careful not to trip or slip as the collar will provide some protection but he still is at risk with a severe fall or car accident. Pt understands and agrees. (Umang Spivey) Attending Statement The exam, history, and the medical decision-making described in the above note were completed with the assistance of the mid-level provider. I reviewed and agree with the findings presented. I attest that I had a [id number] encounter with the patient on the same day, and personally performed and documented my assessment and findings in the medical record. Discussed with the patient and particularly the concern regarding his cardiac condition and comorbidity with increased risk for complications with surgery. He relates that he wants to continue with conservative management and will be compliant with the cervical collar. Also understands that despite the use of a collar there is is a possibility of progressive spondylolisthesis and stenosis with spinal cord injury and paralysis. (John Roach MD) Umang Spivey Dec 29, 2017 10:25 John Roach MD Dec 29, 2017 13:11
[2017-12-29] MEDS ORDERED: HYDR-3516 PO (11:37)
[2017-12-29 12:00] VITALS: BP 143/66; PULSE 58; RESP 18; TEMP 98.9; O2SAT 97
[2017-12-29] MEDS: ENOXAPARIN SODIUM 40 MG/0.4 ML SYRINGE SQ SCH ×2 (12:11→23:33)
[2017-12-29] MEDS ORDERED: MAGN30S PO (12:40)
[2017-12-29] MEDS ORDERED: PERI PO (12:40)
--- NOTE | 2017-12-29 14:43 | HHI.DS ---
Discharge Summary Admission Date Dec 23, 2017 at 23:17 Discharge Date: Dec 29, 2017 Admitting Diagnosis Fracture C2-3, scalp abrasions (1) Scalp hematoma ICD Codes: S00.03XA - Contusion of scalp, initial encounter Diagnosis: Principal Status: Acute (2) Cervical spine fracture ICD Codes: S12.9XXA - Fracture of neck, unspecified, initial encounter Diagnosis: Principal Status: Acute (3) CAD (coronary artery disease) ICD Codes: I25.10 - Atherosclerotic heart disease of [place] coronary artery without angina pectoris Diagnosis: Principal Status: Chronic Brief History Fall. CBC/BMP: 12/29/17 0321 12/29/17 0321 Significant Findings Laboratory Tests Test 12/27/17 13:15 12/29/17 03:21 Prothrombin Time 15.4 SEC (9.8-11.6) Blood Urea Nitrogen 32 MG/DL (7-18) 30 MG/DL (7-18) Creatinine 1.57 MG/DL (0.60-1.30) 1.52 MG/DL (0.60-1.30) Random Glucose 131 MG/DL (74-106) Anion Gap 3 MEQ/L (5-15) Estimat Glomerular Filtration Rate 43 ML/MIN (>89) 44 ML/MIN (>89) Neutrophils (%) (Auto) 80.2 % (16.0-70.0) Lymphocytes (%) (Auto) 8.9 % (9.0-44.0) Neutrophils # (Auto) 8.4 TH/MM3 (1.8-7.7) Lymphocytes # (Auto) 0.9 TH/MM3 (1.0-4.8) Imaging Last Impressions Myocardial Perfusion Scan Nuc Med 12/28/17 0000 Signed Impressions: Service Date/Time: Thursday, December 28, 2017 14:02 - CONCLUSION: Global hypokinesis with dyskinesia at the apex and a decreased ejection fraction of 33%%. Moderate size marked severity fixed defects involving the apical segment of the anterior wall and the apex. No reversible ischemic segments are identified. RISK CATEGORY: High (>3%% Annual Mortality Rate) Dinh Fajardo MD Carotid Artery Ultrasound 12/25/17 0000 Signed Impressions: Service Date/Time: Monday, December 25, 2017 17:51 - CONCLUSION: No evidence for hemodynamically significant stenosis of either carotid artery. Unable to visualize the right vertebral artery. Angel Luis Elias MD Chest X-Ray 12/24/17 0000 Signed Impressions: Service Date/Time: Sunday, December 24, 2017 00:48 - CONCLUSION: No acute abnormality demonstrated. Triston Marks MD Cervical Spine MRI 12/24/17 0000 Signed Impressions: Service Date/Time: Sunday, December 24, 2017 13:37 - CONCLUSION: Oblique fracture again noted through the C3 vertebral body and anterior bridging osteophyte with marrow edema and no retropulsion. No extradural fluid collections or hematoma identified. There is antegrade vertebral soft tissue swelling. The cervical cord is intact. True Feliz MD Cervical Spine CT 12/23/[id number] Signed Impressions: Service Date/Time: November 22:34 - CONCLUSION: 1. Oblique fracture through the C3 vertebral body and the exuberant osteophytes anteriorly at the C2-3 level. 2. Exuberant fused osteophytes extending from C2-T2 with an articulation at the T1-T2 level. There is acute fracture at the C2-3 level through these osteophytes. 3. Degenerative change as described above. This information was relayed by telephone to Dr. Barrera. Triston Edmondson MD Head CT [id number] Signed Impressions: Service Date/Time: November 22:34 - CONCLUSION: 1. No acute intracranial abnormality. 2. Atrophy. 3. Frontal scalp hematomas being worse on the right. Triston Edmondson MD PE at Discharge GENERAL: This is a 82-year-old male OOB in a recliner chair No distress noted. SKIN: Warm and dry. Scattered road rash abrasions to forehead. HEAD: Atraumatic. Normocephalic. EYES: PERRLA. Right eye with slight ecchymosis ENT: No nasal bleeding or discharge. Mucous membranes pink and moist. NECK: Trachea midline. No JVD. Ute J collar in place. CARDIOVASCULAR: Regular rate and rhythm. RESPIRATORY: No accessory muscle use. Lungs are clear to auscultation. Breath sounds equal bilaterally. No distress or dyspnea. GASTROINTESTINAL: BS + x 4 quads. Abdomen soft, non-tender, nondistended. MUSCULOSKELETAL: Extremities without cyanosis, or edema. + peripheral pulses x 4 extremities. Warm with good capillary refill and sensation. MAEW. NEUROLOGICAL: Awake and alert. Normal speech and pattern. Hospital Course [place]: This is a 82-year-old male who fell from a standing position when his dog pulled on the leash and he was dragged on the ground for 12-15 feet. No LOC. He is on Coumadin and aspirin for A. fib. INJURIES: Scalp hematoma C2-3 fxs PMHx: Afib, arthritis, CAD, DM, HLD, HTN, CT x3, CABG in 2004, gout Procedures: 12/28: Myocardial perfusion scan Consults: Neurosurgery. Cardiology. Rehab medicine. Case management. The patient is now tolerating a po diet. Eating and drinking well. Pain is being managed well with PO pain medications, and patient is being a provided with a script for pain meds upon discharge. (NO driving while taking narcotic pain medication enforced to patient.) Pt is having regular bowel movements, and have recommended to patient to continue with stool softeners while taking narcotic pain medications to prevent constipation. Pt has been participating in PT and OT while admitted at [place] and has been ambulating with their assistance and independently . No home PT needs. All follow up appointments have been provided and discussed with the patient. It is recommended that the patient keeps all his follow up appointments for continued recovery. Patient's condition and plan of care discussed with collaborating trauma surgeon. He is agreeable to plan for discharge today. Therefore, the patient is stable to be safely discharged home from a trauma surgery standpoint. Thank you for allowing us to participate in his care. We wish Triston the best in his recovery. C2-3 fxs Neurosurgery consulted and assisting in management and care Ute J collar at all times Plan for conservative treatment with Ute J collar at all times Pain control Bowel regimen Encourage OOB PT ordered Carotid ultrasound -no stenosis Neurosurgery has cleared the patient for discharge Follow-up with neurosurgery outpatient Will need follow-up x-rays -per neurosurgery's recommendations HTN CAD CT 3 CABG Vital signs every 4 hours Home meds resumed: Norvasc, Coreg, Vasotec PRN PO Clonidine Cardiology consulted -for surgical clearance 12/28: Myocardial perfusion scan -shows EF equals 33%. There are defects apical segment of the anterior wall. High risk. Cardiology has cleared the patient for discharge. Resume anticoagulation. Recommend DC beta-chris due to short EKG pauses during the night Follow-up with PCP Pt Condition on Discharge: Stable Discharge Disposition: Discharge Home Discharge Instructions DIET: Follow Instructions for: Heart Healthy Diet, Diabetic Diet Activities you can perform: Regular-No Restrictions Activities to Avoid: Concussion Sports, Contact Sports, Lifting/Bending, Prolonged Standing, Strenuous Activity, Driving Other Activity Instructions: Ute J Collar at all times No pushing. No pulling. No lifting. No carrying ANYTHING. No driving. Attending Statement The exam, history, and the medical decision-making described in the above note were completed with the assistance of the mid-level provider. I reviewed and agree with the findings presented. I attest that I had a [id number] encounter with the patient on the same day, and personally performed and documented my assessment and findings in the medical record. Akua Burk Dec 29, 2017 14:43 Harlan Covington MD Dec 29, 2017 19:11
[2017-12-29 16:00] VITALS: BP 169/80; PULSE 52; RESP 18; TEMP 98.4; O2SAT 98
--- NOTE | 2017-12-29 17:06 | PD.CONS ---
HPI Service Rehabilitation Medicine Consult Requested By [facility] trauma service Reason for Consult Comprehensive rehabilitation evaluation. Primary Care Physician No Primary Care Physician History of Present Illness Triston Castillo is an 82-year-old male admitted [facility] 12/24/17 after sustaining a fall while walking his dog. Cervical spine CT 12/23/17 showed:. Oblique fracture through the C3 vertebral body and the exuberant osteophytes anteriorly at the C2-3 level. Exuberant fused osteophytes extending from C2-T2 with an articulation at the T1-T2 level. There is acute fracture at the C2-3 level through these osteophytes. Cervical MRI 12/24/17 showed: Oblique fracture again noted through the C3 vertebral body and anterior bridging osteophyte with marrow edema and no retropulsion. No extradural fluid collections or hematoma identified. There is antegrade vertebral soft tissue swelling. The cervical cord is intact. This was treated nonsurgically with cervical collar. Review of Systems Constitutional: DENIES: Fatigue Eyes: DENIES: Diplopia Ears, nose, mouth, throat: DENIES: Hearing loss Respiratory: DENIES: Shortness of breath Cardiovascular: DENIES: Chest pain Genitourinary: DENIES: Urinary frequency, Urinary incontinence Musculoskeletal: DENIES: Back pain, Neck pain Integumentary: DENIES: Rash Hematologic/lymphatic: DENIES: Bruising Immunologic/allergic: DENIES: Urticaria Neurologic: DENIES: Headache, Localized weakness, Paresthesias, Speech Problems Psychiatric: DENIES: Confusion Past Family Social History Allergies: Coded Allergies: No Known Allergies (Unverified Allergy, Unknown, 12/23/17) Past Medical History Coronary artery disease Atrial fibrillation Esophageal strictures GERD Prostate cancer Diabetes mellitus Past Surgical History CABG Esophageal dilatation Partial prostate resection Current Medications Current Medications Medications (Trade) Dose Ordered Sig/Rekha Route Start Time Stop Time Status Last Admin (Zyloprim) 150 mg DAILY PO 12/24/17 09:00 12/29/17 08:53 (Norvasc) 10 mg DAILY PO 12/24/17 09:00 12/29/17 08:53 (Lipitor) 40 mg HS PO 12/24/17 21:00 12/28/17 21:06 (Vasotec) 40 mg DAILY PO 12/24/17 09:00 12/29/17 08:53 (NS Flush) 2 ml UNSCH PRN IV FLUSH 12/24/17 00:30 (NS Flush) 2 ml BID IV FLUSH 12/24/17 09:00 12/29/17 08:54 (Mag-Al Plus Susp Liq) 30 ml Q6H PRN PO 12/24/17 00:30 (Protonix) 40 mg DAILY PO 12/24/17 09:00 12/29/17 08:53 (Zofran Inj) 4 mg Q6H PRN IV PUSH 12/24/17 00:30 Potassium Chloride 100 ml @ 50 mls/hr UNSCH PRN IV 12/24/17 00:30 (Logan 10-325 Mg) 1 tab Q4H PRN PO 12/24/17 00:30 (Morphine Inj) 2 mg Q2H PRN IV PUSH 12/24/17 00:30 (Catapres) 0.1 mg Q6H PRN PO 12/24/17 00:30 (Tylenol) 650 mg Q4H PRN PO 12/24/17 00:30 ([place] Eric) 1 lozenge UNSCH PRN BUCCAL 12/24/17 00:30 12/26/17 11:34 (Albuterol Neb) 2.5 mg Q4HR NEB PRN NEB 12/24/17 00:30 (Breana-Colace) 1 tab BID PO 12/24/17 09:00 12/29/17 08:53 (Milk Of Magnesia Liq) 30 ml Q12H PRN PO 12/24/17 00:30 (Senokot) 17.2 mg Q12H PRN PO 12/24/17 00:30 (Dulcolax Supp) 10 mg DAILY PRN RECTAL 12/24/17 00:30 (Lactulose Liq) 30 ml DAILY PRN PO 12/24/17 00:30 (D50w (Vial) Inj) 50 ml UNSCH PRN IV PUSH 12/24/17 00:30 (Glucagon Inj) 1 mg UNSCH PRN OTHER 12/24/17 00:30 (NovoLIN R SUPPLEMENTAL SCALE) 1 ACHS SLIDING SCALE SQ 12/24/17 08:00 12/27/17 20:43 (Logan 5-325 Mg) 1 tab Q4H PRN PO 12/26/17 06:15 (Tears Naturale Opth Soln) 1 drop Q4H PRN EACH EYE 12/28/17 14:30 (Coumadin) 5 mg DAILY@1600 PO 12/29/17 16:00 (Lovenox Inj) 40 mg Q12H SQ 12/29/17 11:00 12/29/17 12:11 Family History Heart disease Social History Prior to admission patient was independent with mobility and ADLs. He lives with a roommate in [place], [place]. The home is one floor. Exam I&O / VS 12/29/17 12/29/17 12/30/17 14:59 22:59 06:59 # Voids 4 3 # Bowel Movements 0 Vital Signs Date Time Temp Pulse Resp B/P (MAP) Pulse Ox O2 Delivery O2 Flow Rate FiO2 12/29/17 16:00 98.4 52 18 169/80 (109) 98 12/29/17 12:00 98.9 58 18 143/66 (91) 97 12/29/17 07:45 98.1 54 18 123/71 (88) 98 Manual Cuff/Auscultation 12/29/17 04:00 97.1 55 18 182/82 (115) 98 12/29/17 00:00 98.3 52 18 167/75 (105) 96 12/28/17 23:00 52 12/28/17 20:00 97.3 62 18 156/72 (100) 99 12/28/17 17:07 150/70 (96) General: No acute distress Respiratory: Lungs CTA, Non-labored respirations, BS equal Gastrointestinal: Positive Bowel Sounds, Non-Distended, Non-Tender Cardiovascular: Normal rate, No edema, Regular Rhythm Musculoskeletal: No calf tenderness Psychiatric: Cooperative, Appropriate mood & affect Orientation: oriented to Self, oriented to Place, oriented to Time, oriented to Situation Neurologic: Cranial Nerves (Intact 2 through 12), Speech (Clear), Other ( Cervical collar is in place) Motor: Right Upper Extremity (5/5), Left Upper Extremity (5/5), Right Lower Extremity (4+5/5), Left Lower Extremity (4+5/5) Sensory Intact to light touch in both upper and lower extremities DTRs: Normal Clonus: Negative Assessment and Plan Diagnosis: (1) C3 cervical fracture ICD Codes: S12.200A - Unspecified displaced fracture of third cervical vertebra , initial encounter for closed fracture Status: Acute Qualifiers: Encounter type: initial encounter Fracture type: closed Fracture alignment: nondisplaced Assessment 1. Fall 12/23/17 with C3 fracture treated nonsurgically with cervical collar 2. Coronary artery disease 3. Atrial fibrillation 4. Esophageal strictures 5. GERD 6. Prostate cancer 7. Diabetes mellitus Plan 1. Patient is progressing well with mobility. Now ambulating 150 feet with a rolling walker standby assist with physical therapy. Would continue to mobilize. Case management is addressing discharge planning and continued home health 2. Close supervision for fall prevention 3. On Lovenox with transition to Coumadin for VTE prophylaxis 4. Will follow while hospitalized and is appropriate at discharge Thank you for this consult Sandrine Gracia MD Dec 29, 2017 17:06
[2017-12-29] MEDS: WARFARIN SOD 5 MG TAB PO SCH (17:08)
[2017-12-29 20:00] VITALS: BP 158/75; PULSE 58; RESP 18; TEMP 97.9; O2SAT 97
[2017-12-29] MEDS: ATORVASTATIN 40 MG TAB PO SCH (23:21)
[2017-12-30] VITALS (7 sets, daily range): BP systolic 137–167; BP diastolic 69–82; PULSE 52–81; RESP 17–20; TEMP 97.7–98.8; O2SAT 96–98
[2017-12-30] MEDS: INSULIN NovoLIN REGULAR SUPPLEMENTAL SCALE SQ SCH ×4 (08:00→21:00)
[2017-12-30] MEDS: SODIUM CHLORIDE 0.9% FLUSH 10 ML FLUSH IV FLUSH SCH ×2 (09:00→22:17)
--- NOTE | 2017-12-30 09:02 | PD.CARD.PN ---
Subjective Subjective Remarks No CP, dizziness, syncope, near syncope, palpitations, dyspnea. Objective Medications Item Value Date Time Warfarin Sodium 5 mg 12/29/17 1600 (Coumadin) DAILY@1600/PO 12/29/17 1708 Enoxaparin Sodium 40 mg 12/29/17 1100 (Lovenox Inj) Q12H/SQ 12/29/17 2333 Atorvastatin 40 mg 12/24/17 2100 Calcium HS/PO 12/29/17 2321 (Lipitor) Enalapril Maleate 40 mg 12/24/17 0900 (Vasotec) DAILY/PO 12/29/17 0853 Amlodipine 10 mg 12/24/17 0900 Besylate DAILY/PO 12/29/17 0853 (Norvasc) Current Medications Medications (Trade) Dose Ordered Sig/Rekha Route Start Time Stop Time Status Last Admin (Zyloprim) 150 mg DAILY PO 12/24/17 09:00 12/29/17 08:53 (Norvasc) 10 mg DAILY PO 12/24/17 09:00 12/29/17 08:53 (Lipitor) 40 mg HS PO 12/24/17 21:00 12/29/17 23:21 (Vasotec) 40 mg DAILY PO 12/24/17 09:00 12/29/17 08:53 (NS Flush) 2 ml UNSCH PRN IV FLUSH 12/24/17 00:30 (NS Flush) 2 ml BID IV FLUSH 12/24/17 09:00 12/29/17 23:21 (Mag-Al Plus Susp Liq) 30 ml Q6H PRN PO 12/24/17 00:30 (Protonix) 40 mg DAILY PO 12/24/17 09:00 12/29/17 08:53 (Zofran Inj) 4 mg Q6H PRN IV PUSH 12/24/17 00:30 Potassium Chloride 100 ml @ 50 mls/hr UNSCH PRN IV 12/24/17 00:30 (Mather 10-325 Mg) 1 tab Q4H PRN PO 12/24/17 00:30 (Morphine Inj) 2 mg Q2H PRN IV PUSH 12/24/17 00:30 (Catapres) 0.1 mg Q6H PRN PO 12/24/17 00:30 (Tylenol) 650 mg Q4H PRN PO 12/24/17 00:30 (Bangs Eric) 1 lozenge UNSCH PRN BUCCAL 12/24/17 00:30 12/26/17 11:34 (Albuterol Neb) 2.5 mg Q4HR NEB PRN NEB 12/24/17 00:30 (Breana-Colace) 1 tab BID PO 12/24/17 09:00 12/29/17 23:21 (Milk Of Magnesia Liq) 30 ml Q12H PRN PO 12/24/17 00:30 (Senokot) 17.2 mg Q12H PRN PO 12/24/17 00:30 (Dulcolax Supp) 10 mg DAILY PRN RECTAL 12/24/17 00:30 (Lactulose Liq) 30 ml DAILY PRN PO 12/24/17 00:30 (D50w (Vial) Inj) 50 ml UNSCH PRN IV PUSH 12/24/17 00:30 (Glucagon Inj) 1 mg UNSCH PRN OTHER 12/24/17 00:30 (NovoLIN R SUPPLEMENTAL SCALE) 1 ACHS SLIDING SCALE SQ 12/24/17 08:00 12/27/17 20:43 (Mather 5-325 Mg) 1 tab Q4H PRN PO 12/26/17 06:15 (Tears Naturale Opth Soln) 1 drop Q4H PRN EACH EYE 12/28/17 14:30 (Coumadin) 5 mg DAILY@1600 PO 12/29/17 16:00 12/29/17 17:08 (Lovenox Inj) 40 mg Q12H SQ 12/29/17 11:00 12/29/17 23:33 Vital Signs / I&O Vital Signs Date Time Temp Pulse Resp B/P (MAP) Pulse Ox O2 Delivery O2 Flow Rate FiO2 12/30/17 08:35 97.7 58 17 149/69 (95) 96 12/30/17 04:00 98.8 81 20 137/82 (100) 98 12/30/17 00:00 98.1 67 18 142/73 (96) 98 12/29/17 20:00 97.9 58 18 158/75 (102) 97 12/29/17 16:00 98.4 52 18 169/80 (109) 98 12/29/17 12:00 98.9 58 18 143/66 (91) 97 I/O 12/29/17 412/29/17 12/30/17 12/30/17 12/30/17 07:00 15:00 23:00 07:00 15:00 23:00 Intake Total 240 ml Balance 240 ml Intake Oral 240 ml # Voids 4 3 4 # Bowel Movements 0 Physical Exam GENERAL: Well developed, well nourished. No acute distress. HEENT: Jugular venous pressure is normal. CHEST: Lungs clear to auscultation bilaterally. Unlabored respiratory effort. CARDIAC: Irregular rate and rhythm without S3, S4, or murmur. ABDOMEN: Soft, nontender, no hepatosplenomegaly. Bowel sounds present. EXTREMITIES: No clubbing, cyanosis, or edema. Chronic venous stasis changes. Assessment and Plan Problem List: (1) Wide QRS ventricular tachycardia ICD Codes: I47.2 - Ventricular tachycardia Status: Acute Plan: 16 beat run of wide complex tachycardia yesterday morning. Patient completely asymptomatic. EF normal by echo. Unable to use beta chris, antiarrhythmic drug therapy with his bradycardia. Await Dr. Glover's input. (2) CAD (coronary artery disease) ICD Codes: I25.10 - Atherosclerotic heart disease of [place] coronary artery without angina pectoris Status: Chronic Plan: CAD status stable. No recent angina symptoms. Nuclear stress test images reviewed, agree there are fixed apical and anteroapical defects c/w prior infarction. EF 33% is clearly inaccurate. Echo reviewed, clearly shows EF closer to low normal 50-55%. REC medical therapy, no beta chris with intermittent bradycardia daily baby aspirin (3) Chronic ectopic atrial tachycardia ICD Codes: I47.1 - Supraventricular tachycardia Status: Chronic Plan: Intermittently bradycardic, HR 30's. Asymptomatic. Suspect he also has sleep apnea. Rec no pacemaker implant unless he develops symptoms attributable to bradycardia. Keep off carvedilol, any other AV joellen suppressing drugs. Anticoagulation resumed. Code Status full code Discussed Condition With patient Problem Qualifiers (1) CAD (coronary artery disease): Qualified Codes: I25.10 - Atherosclerotic heart disease of [place] coronary artery without angina pectoris Wilmer Lundberg MD Dec 30, 2017 09:02
[2017-12-30] MEDS: ASPIRIN EC 81 MG TABEC PO SCH (09:15)
--- NOTE | 2017-12-30 10:09 | HHI.NSPN ---
(Umang Spivey) History Chief Complaint: Pt states neck pain controlled. (Umang Spivey) Interval History 12/24: An 82-year-old gentleman, who presented to [facility] Emergency Room last evening after he was dragged by his large dog, was chasing another dog, fell forward and was dragged about 15 feet with his head on the grass. He denies loss of consciousness. He complains of neck pain, but denies any radiation to the upper or lower extremities. He has chronic low back pain. The CT scan of the cervical spine obtained reveals what appears to be an ankylosing spondylitis. Fusion extends from C2-C7 level with anterior osteophytes and fusion as well as facet fusion. There is a fracture that extends from the inferior aspect of the C2 vertebral body anterior osteophyte through the mid body of the C3 and also involving the right C3 facet consistent with an ankylosing spondylitis break. He was maintained in a cervical collar and transferred to [facility] main intensive care unit for further management. Overnight, he has not had any change in symptoms. He denies feeling lightheaded or dizzy either prior to or subsequent to this fall. He was very hypertensive in the emergency room and was placed on a Cardene drip after p.r.n. IV medications were not effective in controlling his hypertension. He is also on Coumadin for his atrial fibrillation. CT of the head is negative for any intracranial abnormality. 12/25: The patient is sitting up in the chair when seen this afternoon. The only time he has pain to the back of the neck is if he will move it some, then he will have a little pain that lasts for a brief time and resolves on its own. He denies any continuous midline neck pain. He denies any headache or dizziness. He has no pain, numbness or tingling to the extremities. He is neurologically intact when examined. 12/26: The patient has been transferred to a regular med/surg floor since he was last seen. He was in bed "half asleep" but woke up to voice. After that he was alert. He has occasional pain to the neck briefly if he moves it and it will resolve without intervention. He has no headache, dizziness or visual problems. He denies any extremity pain, numbness or tingling. There is no change in his neuro exam upon evaluation. 12/27/17: Pt awake and alert. Sitting up in chair. States neck pain controlled. He denies any radiculopathy or paresthesias in UEs. He moves UEs with good strength. Right periorbital edema improved. 12/28/17: Pt awake and alert. Sitting up in chair. States occasional neck twinge but no radiculopathy or paresthesias in UEs. No weakness in UEs. 12/29/17: Pt awake and alert. Sitting up in chair. States neck discomfort very tolerable, only occasional twinge. No radiculopathy or paresthesias in UEs. 12/30/17: Pt awake and alert. Sitting up in chair. No neck pain other than occasional twinge he reports. He denies any chest pain, sob, or dizziness. (Umang Spivey) Review of Systems General: Negative for: fever, chills, insomnia Respiratory: Negative for: shortness of breath, cough, sputum Cardiovascular: Negative for: chest pain Gastrointestinal: Negative for: nausea, vomitting, diarrhea, constipation ( Umang Spivey) Exam Results Vital Signs Date Time Temp Pulse Resp B/P (MAP) Pulse Ox O2 Delivery O2 Flow Rate FiO2 12/30/17 08:35 97.7 58 17 149/69 (95) 96 12/27/17 20:06 21 (Umang Spivey) Physical Examination General: Pt sitting up in chair with cervical collar in place in NAD. Eyes: Right periorbital edema improved. Pupils equal. Sclera anicteric. Right periorbital ecchymosis present. Resp: CTA bilaterally Heart: NSR no murmurs Abd: Soft positive bs Skin: Right forehead ecchymosis and edema. Right periorbital ecchymosis. Muscle: Moves all 4 extremities with good strength. Neuro: Pt awake and alert. Sitting up in chair. Follows commands well. Sensation intact in UEs. Speech fluent and comprehension good. (Umang Spivey) Lab, Micro, Other Results Last Impressions Myocardial Perfusion Scan Nuc Med 12/28/17 0000 Signed Impressions: Service Date/Time: Thursday, December 28, 2017 14:02 - CONCLUSION: Global hypokinesis with dyskinesia at the apex and a decreased ejection fraction of 33%%. Moderate size marked severity fixed defects involving the apical segment of the anterior wall and the apex. No reversible ischemic segments are identified. RISK CATEGORY: High (>3%% Annual Mortality Rate) Dinh Fajardo MD Carotid Artery Ultrasound 12/25/17 0000 Signed Impressions: Service Date/Time: Monday, December 25, 2017 17:51 - CONCLUSION: No evidence for hemodynamically significant stenosis of either carotid artery. Unable to visualize the right vertebral artery. Angel Luis Elias MD Chest X-Ray 12/24/17 0000 Signed Impressions: Service Date/Time: Sunday, December 24, 2017 00:48 - CONCLUSION: No acute abnormality demonstrated. Triston Marks MD Cervical Spine MRI 12/24/17 0000 Signed Impressions: Service Date/Time: Sunday, December 24, 2017 13:37 - CONCLUSION: Oblique fracture again noted through the C3 vertebral body and anterior bridging osteophyte with marrow edema and no retropulsion. No extradural fluid collections or hematoma identified. There is antegrade vertebral soft tissue swelling. The cervical cord is intact. True Feliz MD Cervical Spine CT [id number] Signed Impressions: Service Date/Time: November 22:34 - CONCLUSION: 1. Oblique fracture through the C3 vertebral body and the exuberant osteophytes anteriorly at the C2-3 level. 2. Exuberant fused osteophytes extending from C2-T2 with an articulation at the T1-T2 level. There is acute fracture at the C2-3 level through these osteophytes. 3. Degenerative change as described above. This information was relayed by telephone to Dr. Barrera. Triston Edmondson MD Head CT [id number] Signed Impressions: Service Date/Time: November 22:34 - CONCLUSION: 1. No acute intracranial abnormality. 2. Atrophy. 3. Frontal scalp hematomas being worse on the right. Triston Edmondson MD (Umang Spivey) Medical Decision Making Impression and Plan A: 82 y/o M with C3 ankylosing spondylitis fracture extending through the anterior to posterior aspect of vertebral body as well as right-sided facet. This is an unstable fracture. 2. Chronic dysphagia with esophageal strictures, despite multiple esophageal dilation attempts, along with some hoarseness. 3. Chronic atrial fibrillation, on Coumadin therapy. 4. Coronary artery disease, status post coronary artery bypass grafting with complaints of dyspnea with exertion. 5. Diabetes mellitus. 6. Unregulated hypertension. Plan: Continue with cervical collar Continue to get oob and ambulate with PT Cardiology note reviewed. We will continue with cervical collar for now and pts anticoagulation has been resumed. Pt will follow up every 6 weeks with follow up x-rays. Discussed with pt importance of wearing cervical collar at all times and the restrictions of no pushing, pulling, lifting, or carrying anything. He cannot drive and should stay out of a vehicle unless he needs to see his physicians. He also needs to be careful not to trip or slip as the collar will provide some protection but he still is at risk with a severe fall or car accident. Pt understands and agrees. Pt is going to be evaluated by Dr. Glover for episode of wide complex tachycardia. (Umang Spivey) Attending Statement The exam, history, and the medical decision-making described in the above note were completed with the assistance of the mid-level provider. I reviewed and agree with the findings presented. I attest that I had a [id number] encounter with the patient on the same day, and personally performed and documented my assessment and findings in the medical record. (John Roach MD) Umang Spivey Dec 30, 2017 10:09 John Roach MD Dec 30, 2017 12:02
[2017-12-30] MEDS: ALLOPURINOL 300 MG TAB PO SCH (10:14)
[2017-12-30] MEDS: PANTOPRAZOLE SOD 40 MG DELAYED RELEASE TAB PO SCH (10:14)
[2017-12-30] MEDS: DOCUSATE SODIUM 50 MG/SENNA 8.6 MG TAB PO SCH ×2 (10:14→21:00)
[2017-12-30] MEDS: ENALAPRIL MALEATE 10 MG TAB PO SCH (10:15)
[2017-12-30] MEDS: ENOXAPARIN SODIUM 40 MG/0.4 ML SYRINGE SQ SCH ×2 (10:19→22:19)
--- NOTE | 2017-12-30 11:04 | MB ---
cc: Nyasia Glover MD,Tony Lundberg,Wilmer Garrison MD DATE: 12/30/2017 REASON FOR CONSULTATION: Nonsustained ventricular tachycardia. HISTORY OF PRESENT ILLNESS: Mr. Castillo is an 82-year-old gentleman with history of coronary artery disease, coronary artery bypass grafting, previous TIA, previous history of atrial tachyarrhythmia, atrial flutter. The patient was walking his dog. The dog saw another dog, started pulling him and he had a fall. He has cervical spine fracture. The patient was going to be managed medically. During hospitalization clearance was requested. Echocardiogram was performed that indicated ejection fraction of about 50%. He has a nonsustained ventricular tachycardia and there is a nuclear stress test with an EF of 30%. I was consulted for evaluation and management. The chart was reviewed. The patient was evaluated. ALLERGIES: NONE. SOCIAL HISTORY: The gentleman currently negative for smoking and drinking for the past 40 years. FAMILY HISTORY: Noncontributory to his current medical condition. MEDICATIONS: He is on atorvastatin 40 mg a day, amlodipine 40 mg a day, Coreg, enalapril. He was on Coumadin that was put on hold. REVIEW OF SYSTEMS: He refers some neck pain, but feeling better. No chest pain, no chest discomfort. No fever. PHYSICAL EXAMINATION: GENERAL: Alert, fully oriented, sitting in the chair. VITAL SIGNS: Blood pressure is 116/80, pulse 52, respiratory rate 18. LUNGS: Ventilated. CARDIOVASCULAR: S1, S2, irregular. NECK: With neck immobilization device. ABDOMEN: Soft. Obese. No bruit. EXTREMITIES: No edema. DATA: Electrocardiogram, possible atrial fibrillation versus atrial flutter. Diffuse ST changes. LABS: Hemoglobin 13.4, white blood cell 10.4, potassium 4.2, creatinine 1.52. INR 1.5. ASSESSMENT AND RECOMMENDATIONS: Mr. Castillo is currently stable. He has a history of coronary artery disease, coronary artery bypass grafting. Nuclear stress test report, global hypokinesia, no reversible ischemia. Ejection fraction of around 33%, but the echo read by Dr. Lorenzo indicated ejection fraction of 50-55%. The gentleman does not need a left heart catheterization because there is no ischemia on the nuclear stress test and also because of the facial trauma and neck trauma, he could not have a cardiac catheterization because of issues with heparin. At this point, and need to clarify the situation. If this gentleman has an EF of 33% and there is a long episode of nonsustained ventricular tachycardia, the gentleman on a beta chris for years, that means he is going to need EP study, but if review of the echo indicated ejection fraction normal, then the gentleman can continue on beta chris and be discharged home. I will call Dr. Lundberg and discuss the case with him extensively, and from there further decision will be taken. Case was discussed with the patient. Nyasia Glover MD HS/TL , 10:37 AM , 11:03 AM
--- NOTE | 2017-12-30 11:05 | HHI.PR ---
Subjective Subjective Notes PTD: 6 Patient OOB and sitting in a chair. No distress noted. No complaints offered. Patient states he is interested in rehab. "Yeah, they said something happened to my heart, but I did not feel anything." Objective Vitals/I&O Vital Signs Date Time Temp Pulse Resp B/P (MAP) Pulse Ox O2 Delivery O2 Flow Rate FiO2 12/30/17 08:35 97.7 58 17 149/69 (95) 96 12/27/17 20:06 21 Labs Laboratory Tests Test 12/23/17 23:31 12/24/17 00:00 12/24/17 03:00 12/24/17 16:57 Blood Urea Nitrogen 27 MG/DL 23 MG/DL Creatinine 1.50 MG/DL 1.39 MG/DL Random Glucose 139 MG/DL 147 MG/DL Total Protein 7.3 GM/DL Albumin 3.0 GM/DL Calcium Level 8.6 MG/DL 8.6 MG/DL Alkaline Phosphatase 103 U/L Aspartate Amino Transf (AST/SGOT) 20 U/L Alanine Aminotransferase (ALT/SGPT) 15 U/L Total Bilirubin 0.5 MG/DL Sodium Level 138 MEQ/L 140 MEQ/L Potassium Level 3.7 MEQ/L 3.6 MEQ/L Chloride Level 105 MEQ/L 105 MEQ/L Carbon Dioxide Level 24.7 MEQ/L 27.4 MEQ/L Urine Color YELLOW Urine Turbidity CLEAR Urine pH 7.0 Urine Specific [place] 1.020 Urine Protein 100 mg/dL Urine Glucose (UA) NEG mg/dL Urine Ketones NEG mg/dL Urine Occult Blood SMALL Urine Nitrite NEG Urine Bilirubin NEG Urine Urobilinogen 0.2 MG/DL Urine Leukocyte Esterase NEG Urine RBC 3-5 /hpf Urine WBC 0-2 /hpf Urine Squamous Epithelial Cells 0-5 /hpf Urine Bacteria NONE /hpf Microscopic Urinalysis Comment CULT NOT INDICATED Nasal Screen MRSA (PCR) MRSA NOT DETECTED Activated Partial Thromboplast Time 29.2 SEC Phosphorus Level 2.9 MG/DL Magnesium Level 1.9 MG/DL Total Creatine Kinase 105 U/L Test 12/25/17 04:45 12/27/17 13:15 12/29/17 03:21 Blood Urea Nitrogen 27 MG/DL 30 MG/DL Creatinine 1.56 MG/DL 1.52 MG/DL Random Glucose 127 MG/DL 105 MG/DL Calcium Level 8.7 MG/DL 8.9 MG/DL Magnesium Level 2.1 MG/DL Sodium Level 139 MEQ/L 139 MEQ/L Potassium Level 4.1 MEQ/L 4.2 MEQ/L Chloride Level 105 MEQ/L 103 MEQ/L Carbon Dioxide Level 26.1 MEQ/L 29.8 MEQ/L Prothrombin Time 15.4 SEC Prothromb Time International Ratio 1.5 RATIO White Blood Count 10.4 TH/MM3 Red Blood Count 4.70 MIL/MM3 Hemoglobin 13.4 GM/DL Hematocrit 39.6 % Mean Corpuscular Volume 84.3 FL Mean Corpuscular Hemoglobin 28.5 PG Mean Corpuscular Hemoglobin Concent 33.8 % Red Cell Distribution Width 16.2 % Platelet Count 198 TH/MM3 Mean Platelet Volume 9.2 FL Neutrophils (%) (Auto) 80.2 % Lymphocytes (%) (Auto) 8.9 % Monocytes (%) (Auto) 6.5 % Eosinophils (%) (Auto) 3.8 % Basophils (%) (Auto) 0.6 % Neutrophils # (Auto) 8.4 TH/MM3 Lymphocytes # (Auto) 0.9 TH/MM3 Monocytes # (Auto) 0.7 TH/MM3 Eosinophils # (Auto) 0.4 TH/MM3 Basophils # (Auto) 0.1 TH/MM3 CBC Comment DIFF FINAL Differential Comment Anion Gap 6 MEQ/L Estimat Glomerular Filtration Rate 44 ML/MIN Narrative Exam GENERAL: This is a 82-year-old male OOB in a recliner chair No distress noted. SKIN: Warm and dry. Scattered road rash abrasions to forehead - scabbed over. HEAD: Atraumatic. Normocephalic. EYES: PERRLA. Right eye with slight ecchymosis ENT: No nasal bleeding or discharge. Mucous membranes pink and moist. NECK: Trachea midline. No JVD. Sterling J collar in place. CARDIOVASCULAR: Regular rate and rhythm. RESPIRATORY: No accessory muscle use. Lungs are clear to auscultation. Breath sounds equal bilaterally. No distress or dyspnea. GASTROINTESTINAL: BS + x 4 quads. Abdomen soft, non-tender, nondistended. MUSCULOSKELETAL: Extremities without cyanosis, or edema. + peripheral pulses x 4 extremities. Warm with good capillary refill and sensation. MAEW. NEUROLOGICAL: Awake and alert. Normal speech and pattern. A/P Problem List: (1) Scalp hematoma ICD Codes: S00.03XA - Contusion of scalp, initial encounter Status: Acute (2) Cervical spine fracture ICD Codes: S12.9XXA - Fracture of neck, unspecified, initial encounter Status: Acute (3) CAD (coronary artery disease) ICD Codes: I25.10 - Atherosclerotic heart disease of [place] coronary artery without angina pectoris Status: Chronic Assessment and Plan [place]: This is a 82-year-old male who fell from a standing position when his dog pulled on the leash and he was dragged on the ground for 12-15 feet. No LOC. He is on Coumadin and aspirin for A. fib. INJURIES: Scalp hematoma C2-3 fxs PMHx: Afib, arthritis, CAD, DM, HLD, HTN, [place] x3, CABG in 2004, gout Procedures: 12/28: Myocardial perfusion scan Consults: Neurosurgery. Cardiology. Rehab medicine. Case management. Diet: 1800 ADA diet. Tolerating po diet. Encourage good po intake with each meal. Pulmonary: Encourage good pulmonary toileting. IS at bedside and pt encouraged to use. Rationale for use explained to patient, and verbalized understanding. PAIN Management: [place] 5-10 q 4h, Morphine 2mg q 2h. Activity: OOB. PT ordered. GI prophylaxis: PO Protonix Bowel regimen: Breana-colace. MOM PRN. Lactulose PRN. Senna PRN. Bisacodyl PRN. LBM: 12/26 DVT prophylaxis: Mechanical VTE with SCDs. Chemical management with Lovenox 40 mg QD. Resumed Coumadin 5 mg QD. DC Planning: Case management consulted for assistance with final discharge disposition. Patient is now interested in rehab placement. Plan was for discharge home yesterday as Cardiology had cleared the pt for DC, however patient developed a asymptomatic, non sustained and self limiting wide complex tachycardia, and cardiology was called for further evaluation and continued monitoring. Dr. Lundberg would like Dr. Glover to evaluate the patient further. Emotional support provided to patient and family at bedside and plan of care discussed. Discussed with RN at bedside. Discussed pt condition and plan of care with collaborating trauma surgeon. Patient is hemodynamically stable and being managed on the med/surg floor. The trauma team will round each day, and evaluate plan of care on a daily basis. C2-3 fxs Neurosurgery consulted and assisting in management and care Sterling J collar at all times Conservative vs surgical intervention is being determined Cardiology consulted for surgical clearance Pain control Bowel regimen Encourage OOB PT ordered Carotid ultrasound -no stenosis HTN CAD [place] 3 CABG Vital signs every 4 hours Home meds resumed: Norvasc, Vasotec PRN PO Clonidine Patient had an episode of wide-complex tachycardia -asymptomatic, self-limiting , and nonsustained Cardiology consulted -Dr. Glover for wide-complex tachycardia -await assessment and plan /3: Myocardial perfusion scan - HIGH risk Problem Qualifiers (1) Scalp hematoma: Qualified Codes: S00.03XA - Contusion of scalp, initial encounter (2) Cervical spine fracture: (3) CAD (coronary artery disease): Qualified Codes: I25.10 - Atherosclerotic heart disease of [place] coronary artery without angina pectoris Akua Burk Dec 30, 2017 11:05
--- NOTE | 2017-12-30 17:11 | HHI.PR ---
Subjective Remarks Feeling ok Objective Vital Signs Date Time Temp Pulse Resp B/P (MAP) Pulse Ox O2 Delivery O2 Flow Rate FiO2 12/30/17 16:16 97.8 52 17 167/73 (104) 96 12/30/17 12:48 98.2 57 17 154/71 (98) 97 12/30/17 08:35 97.7 58 17 149/69 (95) 96 12/30/17 04:00 98.8 81 20 137/82 (100) 98 12/30/17 00:00 98.1 67 18 142/73 (96) 98 12/29/17 20:00 97.9 58 18 158/75 (102) 97 I/O 12/29/17 12/29/17 12/29/17 12/30/17 12/30/17 12/30/17 07:00 15:00 23:00 07:00 15:00 23:00 Intake Total 240 ml 480 ml Balance 240 ml 480 ml Intake Oral 240 ml 480 ml # Voids 4 3 4 5 # Bowel Movements 0 1 Result Diagram: 12/29/17 0321 12/29/17 0321 Imaging Alert, fully oriented Lungs : ventilated Heart: S1, S2 regular, no gallop Abdomen: soft, obese, no mass Ext: no edema Last Impressions Myocardial Perfusion Scan Nuc Med 12/28/17 0000 Signed Impressions: Service Date/Time: Thursday, December 28, 2017 14:02 - CONCLUSION: Global hypokinesis with dyskinesia at the apex and a decreased ejection fraction of 33%%. Moderate size marked severity fixed defects involving the apical segment of the anterior wall and the apex. No reversible ischemic segments are identified. RISK CATEGORY: High (>3%% Annual Mortality Rate) Dinh Fajardo MD Carotid Artery Ultrasound 12/25/17 0000 Signed Impressions: Service Date/Time: Monday, December 25, 2017 17:51 - CONCLUSION: No evidence for hemodynamically significant stenosis of either carotid artery. Unable to visualize the right vertebral artery. Angel Luis Elias MD Chest X-Ray 12/24/17 0000 Signed Impressions: Service Date/Time: Sunday, December 24, 2017 00:48 - CONCLUSION: No acute abnormality demonstrated. Triston Marks MD Cervical Spine MRI 12/24/17 0000 Signed Impressions: Service Date/Time: Sunday, December 24, 2017 13:37 - CONCLUSION: Oblique fracture again noted through the C3 vertebral body and anterior bridging osteophyte with marrow edema and no retropulsion. No extradural fluid collections or hematoma identified. There is antegrade vertebral soft tissue swelling. The cervical cord is intact. True Feliz MD Cervical Spine CT 12/23/176 Signed Impressions: Service Date/Time: November 22:34 - CONCLUSION: 1. Oblique fracture through the C3 vertebral body and the exuberant osteophytes anteriorly at the C2-3 level. 2. Exuberant fused osteophytes extending from C2-T2 with an articulation at the T1-T2 level. There is acute fracture at the C2-3 level through these osteophytes. 3. Degenerative change as described above. This information was relayed by telephone to Dr. Barrera. Triston Edmondson MD Head CT 12/23/174 Signed Impressions: Service Date/Time: November 22:34 - CONCLUSION: 1. No acute intracranial abnormality. 2. Atrophy. 3. Frontal scalp hematomas being worse on the right. Triston Edmondson MD Current Medications Medications (Trade) Dose Ordered Sig/Rekha Route Start Time Stop Time Status Last Admin (Zyloprim) 150 mg DAILY PO 12/24/17 09:00 12/30/17 10:14 (Norvasc) 10 mg DAILY PO 12/24/17 09:00 12/30/17 10:15 (Lipitor) 40 mg HS PO 12/24/17 21:00 12/29/17 23:21 (Vasotec) 40 mg DAILY PO 12/24/17 09:00 12/30/17 10:15 (NS Flush) 2 ml UNSCH PRN IV FLUSH 12/24/17 00:30 (NS Flush) 2 ml BID IV FLUSH 12/24/17 09:00 12/30/17 09:00 (Mag-Al Plus Susp Liq) 30 ml Q6H PRN PO 12/24/17 00:30 (Protonix) 40 mg DAILY PO 12/24/17 09:00 12/30/17 10:14 (Zofran Inj) 4 mg Q6H PRN IV PUSH 12/24/17 00:30 Potassium Chloride 100 ml @ 50 mls/hr UNSCH PRN IV 12/24/17 00:30 ([place] 10-325 Mg) 1 tab Q4H PRN PO 12/24/17 00:30 (Morphine Inj) 2 mg Q2H PRN IV PUSH 12/24/17 00:30 (Catapres) 0.1 mg Q6H PRN PO 12/24/17 00:30 (Tylenol) 650 mg Q4H PRN PO 12/24/17 00:30 ([place] Eric) 1 lozenge UNSCH PRN BUCCAL 12/24/17 00:30 12/26/17 11:34 (Albuterol Neb) 2.5 mg Q4HR NEB PRN NEB 12/24/17 00:30 (Breana-Colace) 1 tab BID PO 12/24/17 09:00 12/30/17 10:14 (Milk Of Magnesia Liq) 30 ml Q12H PRN PO 12/24/17 00:30 (Senokot) 17.2 mg Q12H PRN PO 12/24/17 00:30 (Dulcolax Supp) 10 mg DAILY PRN RECTAL 12/24/17 00:30 (Lactulose Liq) 30 ml DAILY PRN PO 12/24/17 00:30 (D50w (Vial) Inj) 50 ml UNSCH PRN IV PUSH 12/24/17 00:30 (Glucagon Inj) 1 mg UNSCH PRN OTHER 12/24/17 00:30 (NovoLIN R SUPPLEMENTAL SCALE) 1 ACHS SLIDING SCALE SQ 12/24/17 08:00 12/27/17 20:43 ([place] 5-325 Mg) 1 tab Q4H PRN PO 12/26/17 06:15 (Tears Naturale Opth Soln) 1 drop Q4H PRN EACH EYE 12/28/17 14:30 (Coumadin) 5 mg DAILY@1600 PO 12/29/17 16:00 12/29/17 17:08 (Lovenox Inj) 40 mg Q12H SQ 12/29/17 11:00 12/30/17 10:19 (Ecotrin Ec) 81 mg DAILY PO 12/30/17 09:15 12/30/17 09:15 Assessment and Plan Problem List: (1) Wide QRS ventricular tachycardia ICD Codes: I47.2 - Ventricular tachycardia Status: Acute Plan: Possible NSVT. Echo reviewed by Dr Lundberg. EF over 50% Coreg was DC due to low HR during the night Patient use to take the med without side effect for long No need for further investigation of the tachy for now. If necessary, EP study in the future. Coreg will be reinitiated BP high now Can be DH when ok with the managing team Case discussed with patient (2) CAD (coronary artery disease) ICD Codes: I25.10 - Atherosclerotic heart disease of [place] coronary artery without angina pectoris Status: Chronic Plan: No chest pain Nuclear stress study negative for ischemia Problem Qualifiers (1) CAD (coronary artery disease): Qualified Codes: I25.10 - Atherosclerotic heart disease of [place] coronary artery without angina pectoris Nyasia Glover MD Dec 30, 2017 17:11
[2017-12-30] MEDS: WARFARIN SOD 5 MG TAB PO SCH (18:28)
[2017-12-30] MEDS: CARVEDILOL 12.5 MG TAB PO SCH ×2 (18:37→22:17)
[2017-12-30] MEDS: ATORVASTATIN 40 MG TAB PO SCH (22:17)
[2017-12-31] VITALS: BP 141/73; PULSE 56; RESP 20; TEMP 98; O2SAT 96
[2017-12-31 04:00] VITALS: BP 126/67; PULSE 50; RESP 18; TEMP 97.9; O2SAT 97
--- NOTE | 2017-12-31 07:48 | PD.CARD.PN ---
Subjective Subjective Remarks No CP, dizziness, syncope, near syncope, palpitations, dyspnea. Objective Medications Item Value Date Time Carvedilol 12.5 mg 12/30/17 1830 (Coreg) BID/PO 12/30/172216 Aspirin 81 mg 12/30/17914 (Ecotrin Ec) DAILY/PO 12/30/1715 Warfarin Sodium 5 mg 12/29/17 1600 (Coumadin) DAILY@1600/PO 12/30/171827 Enoxaparin Sodium 40 mg 12/29/17 1100 (Lovenox Inj) Q12H/SQ 12/30/172218 Atorvastatin 40 mg 12/24/17 2100 Calcium HS/PO 12/30/17 2217 (Lipitor) Amlodipine 10 mg 12/24/17 0900 Besylate DAILY/PO 12/30/17 1015 (Norvasc) Enalapril Maleate 40 mg 12/24/17 0900 (Vasotec) DAILY/PO 12/30/17 1015 Current Medications Medications (Trade) Dose Ordered Sig/Rekha Route Start Time Stop Time Status Last Admin (Zyloprim) 150 mg DAILY PO 12/24/17 09:00 12/30/17 10:14 (Norvasc) 10 mg DAILY PO 12/24/17 09:00 12/30/17 10:15 (Lipitor) 40 mg HS PO 12/24/17 21:00 12/30/17 22:17 (Vasotec) 40 mg DAILY PO 12/24/17 09:00 12/30/17 10:15 (NS Flush) 2 ml UNSCH PRN IV FLUSH 12/24/17 00:30 (NS Flush) 2 ml BID IV FLUSH 12/24/17 09:00 12/30/17 22:17 (Mag-Al Plus Susp Liq) 30 ml Q6H PRN PO 12/24/17 00:30 (Protonix) 40 mg DAILY PO 12/24/17 09:00 12/30/17 10:14 (Zofran Inj) 4 mg Q6H PRN IV PUSH 12/24/17 00:30 Potassium Chloride 100 ml @ 50 mls/hr UNSCH PRN IV 12/24/17 00:30 ([place] 10-325 Mg) 1 tab Q4H PRN PO 12/24/17 00:30 (Morphine Inj) 2 mg Q2H PRN IV PUSH 12/24/17 00:30 (Catapres) 0.1 mg Q6H PRN PO 12/24/17 00:30 (Tylenol) 650 mg Q4H PRN PO 12/24/17 00:30 ([place] Eric) 1 lozenge UNSCH PRN BUCCAL 12/24/17 00:30 12/26/17 11:34 (Albuterol Neb) 2.5 mg Q4HR NEB PRN NEB 12/24/17 00:30 (Breana-Colace) 1 tab BID PO 12/24/17 09:00 12/30/17 10:14 (Milk Of Magnesia Liq) 30 ml Q12H PRN PO 12/24/17 00:30 (Senokot) 17.2 mg Q12H PRN PO 12/24/17 00:30 (Dulcolax Supp) 10 mg DAILY PRN RECTAL 12/24/17 00:30 (Lactulose Liq) 30 ml DAILY PRN PO 12/24/17 00:30 (D50w (Vial) Inj) 50 ml UNSCH PRN IV PUSH 12/24/17 00:30 (Glucagon Inj) 1 mg UNSCH PRN OTHER 12/24/17 00:30 (NovoLIN R SUPPLEMENTAL SCALE) 1 ACHS SLIDING SCALE SQ 12/24/17 08:00 12/27/17 20:43 ([place] 5-325 Mg) 1 tab Q4H PRN PO 12/26/17 06:15 (Tears Naturale Opth Soln) 1 drop Q4H PRN EACH EYE 12/28/17 14:30 (Coumadin) 5 mg DAILY@1600 PO 12/29/17 16:00 12/30/17 18:28 (Lovenox Inj) 40 mg Q12H SQ 12/29/17 11:00 12/30/17 22:19 (Ecotrin Ec) 81 mg DAILY PO 12/30/17 09:15 12/30/17 09:15 (Coreg) 12.5 mg BID PO 12/30/17 18:30 12/30/17 22:17 Vital Signs / I&O Vital Signs Date Time Temp Pulse Resp B/P (MAP) Pulse Ox O2 Delivery O2 Flow Rate FiO2 12/31/17 04:00 97.9 50 18 126/67 (86) 97 12/31/17 00:00 98.0 56 20 141/73 (95) 96 12/30/17 20:00 98.0 56 20 166/76 (106) 98 12/30/17 18:10 96 21 12/30/17 16:16 97.8 52 17 167/73 (104) 96 12/30/17 12:48 98.2 57 17 154/71 (98) 97 12/30/17 08:35 97.7 58 17 149/69 (95) 96 I/O 12/30/17 12/30/17 12/30/17 12/31/17 12/31/17 12/31/17 07:00 15:00 23:00 07:00 15:00 23:00 Intake Total 480 ml Balance 480 ml Intake Oral 480 ml # Voids 4 5 2 # Bowel Movements 1 0 Physical Exam GENERAL: Well developed, well nourished. No acute distress. HEENT: Jugular venous pressure is normal. CHEST: Lungs clear to auscultation bilaterally. Unlabored respiratory effort. CARDIAC: Irregular rate and rhythm without S3, S4, or murmur. ABDOMEN: Soft, nontender, no hepatosplenomegaly. Bowel sounds present. EXTREMITIES: No clubbing, cyanosis, or edema. Chronic venous stasis changes. Assessment and Plan Problem List: (1) Wide QRS ventricular tachycardia ICD Codes: I47.2 - Ventricular tachycardia Status: Acute Plan: No further wide complex tachycardia. Dr. Glover's input noted, appreciated. Patient completely asymptomatic. EF normal by echo. Continue carvedilol. OK to discharge to rehab from cardiac standpoint. (2) CAD (coronary artery disease) ICD Codes: I25.10 - Atherosclerotic heart disease of [place] coronary artery without angina pectoris Status: Chronic Plan: CAD status stable. No recent angina symptoms. Nuclear stress test images reviewed, agree there are fixed apical and anteroapical defects c/w prior infarction. EF 33% is clearly inaccurate. Echo reviewed, clearly shows EF closer to low normal 50-55%. REC medical therapy, beta chris resumed daily baby aspirin (3) Chronic ectopic atrial tachycardia ICD Codes: I47.1 - Supraventricular tachycardia Status: Chronic Plan: Intermittently bradycardic, HR 30's, mostly when sleeping or dozing off. Asymptomatic. Suspect he also has sleep apnea. Rec no pacemaker implant unless he develops symptoms attributable to bradycardia. Continue warfarin with close monitoring of INR. Code Status full code Discussed Condition With patient Problem Qualifiers (1) CAD (coronary artery disease): Qualified Codes: I25.10 - Atherosclerotic heart disease of [place] coronary artery without angina pectoris Wilmer Lundberg MD Dec 31, 2017 07:48
[2017-12-31 08:00] VITALS: BP 134/66; PULSE 56; RESP 18; TEMP 97.8; O2SAT 97
[2017-12-31] MEDS: INSULIN NovoLIN REGULAR SUPPLEMENTAL SCALE SQ SCH ×2 (08:00→12:00)
--- NOTE | 2017-12-31 08:05 | PD.CARD.PN ---
Subjective Subjective Remarks 3.4 second pause seen on telemetry, atrial flutter with bradycardia, mildly symptomatic with dyspnea Objective Medications Current Medications Medications (Trade) Dose Ordered Sig/Rekha Route Start Time Stop Time Status Last Admin (Zyloprim) 150 mg DAILY PO 12/24/17 09:00 12/30/17 10:14 (Norvasc) 10 mg DAILY PO 12/24/17 09:00 12/30/17 10:15 (Lipitor) 40 mg HS PO 12/24/17 21:00 12/30/17 22:17 (Vasotec) 40 mg DAILY PO 12/24/17 09:00 12/30/17 10:15 (NS Flush) 2 ml UNSCH PRN IV FLUSH 12/24/17 00:30 (NS Flush) 2 ml BID IV FLUSH 12/24/17 09:00 12/30/17 22:17 (Mag-Al Plus Susp Liq) 30 ml Q6H PRN PO 12/24/17 00:30 (Protonix) 40 mg DAILY PO 12/24/17 09:00 12/30/17 10:14 (Zofran Inj) 4 mg Q6H PRN IV PUSH 12/24/17 00:30 Potassium Chloride 100 ml @ 50 mls/hr UNSCH PRN IV 12/24/17 00:30 ([place] 10-325 Mg) 1 tab Q4H PRN PO 12/24/17 00:30 (Morphine Inj) 2 mg Q2H PRN IV PUSH 12/24/17 00:30 (Catapres) 0.1 mg Q6H PRN PO 12/24/17 00:30 (Tylenol) 650 mg Q4H PRN PO 12/24/17 00:30 ([place] Eric) 1 lozenge UNSCH PRN BUCCAL 12/24/17 00:30 12/26/17 11:34 (Albuterol Neb) 2.5 mg Q4HR NEB PRN NEB 12/24/17 00:30 (Breana-Colace) 1 tab BID PO 12/24/17 09:00 12/30/17 10:14 (Milk Of Magnesia Liq) 30 ml Q12H PRN PO 12/24/17 00:30 (Senokot) 17.2 mg Q12H PRN PO 12/24/17 00:30 (Dulcolax Supp) 10 mg DAILY PRN RECTAL 12/24/17 00:30 (Lactulose Liq) 30 ml DAILY PRN PO 12/24/17 00:30 (D50w (Vial) Inj) 50 ml UNSCH PRN IV PUSH 12/24/17 00:30 (Glucagon Inj) 1 mg UNSCH PRN OTHER 12/24/17 00:30 (NovoLIN R SUPPLEMENTAL SCALE) 1 ACHS SLIDING SCALE SQ 12/24/17 08:00 12/27/17 20:43 ([place] 5-325 Mg) 1 tab Q4H PRN PO 12/26/17 06:15 (Tears Naturale Opth Soln) 1 drop Q4H PRN EACH EYE 12/28/17 14:30 (Coumadin) 5 mg DAILY@1600 PO 12/29/17 16:00 12/30/17 18:28 (Lovenox Inj) 40 mg Q12H SQ 12/29/17 11:00 12/30/17 22:19 (Ecotrin Ec) 81 mg DAILY PO 12/30/17 09:15 12/30/17 09:15 (Coreg) 12.5 mg BID PO 12/30/17 18:30 12/30/17 22:17 Vital Signs / I&O Vital Signs Date Time Temp Pulse Resp B/P (MAP) Pulse Ox O2 Delivery O2 Flow Rate FiO2 12/31/17 04:00 97.9 50 18 126/67 (86) 97 12/31/17 00:00 98.0 56 20 141/73 (95) 96 12/30/17 20:00 98.0 56 20 166/76 (106) 98 12/30/17 18:10 96 21 12/30/17 16:16 97.8 52 17 167/73 (104) 96 12/30/17 12:48 98.2 57 17 154/71 (98) 97 12/30/17 08:35 97.7 58 17 149/69 (95) 96 I/O 12/30/17 12/30/17 12/30/17 12/31/17 12/31/17 12/31/17 07:00 15:00 23:00 07:00 15:00 23:00 Intake Total 480 ml Balance 480 ml Intake Oral 480 ml # Voids 4 5 2 # Bowel Movements 1 0 Physical Exam GENERAL: Well-nourished, well-developed patient. SKIN: Warm and dry. HEAD: Normocephalic. EYES: No scleral icterus. No injection or drainage. NECK: Supple, trachea midline. No JVD or lymphadenopathy. CARDIOVASCULAR: Bradycardic rate, regular rhythm without murmurs, gallops, or rubs. RESPIRATORY: Breath sounds equal bilaterally. No accessory muscle use. GASTROINTESTINAL: Abdomen soft, non-tender, nondistended. EXTREMITIES: No cyanosis, or edema. NEUROLOGICAL: Awake, alert, and oriented x 3. Non-focal. Imaging Last Impressions Myocardial Perfusion Scan Nuc Med 12/28/17 0000 Signed Impressions: Service Date/Time: Thursday, December 28, 2017 14:02 - CONCLUSION: Global hypokinesis with dyskinesia at the apex and a decreased ejection fraction of 33%%. Moderate size marked severity fixed defects involving the apical segment of the anterior wall and the apex. No reversible ischemic segments are identified. RISK CATEGORY: High (>3%% Annual Mortality Rate) Dinh Fajardo MD Carotid Artery Ultrasound 12/25/17 0000 Signed Impressions: Service Date/Time: Monday, December 25, 2017 17:51 - CONCLUSION: No evidence for hemodynamically significant stenosis of either carotid artery. Unable to visualize the right vertebral artery. Angel Luis Elias MD Chest X-Ray 12/24/17 0000 Signed Impressions: Service Date/Time: Sunday, December 24, 2017 00:48 - CONCLUSION: No acute abnormality demonstrated. Triston Marks MD Cervical Spine MRI 12/24/17 0000 Signed Impressions: Service Date/Time: Sunday, December 24, 2017 13:37 - CONCLUSION: Oblique fracture again noted through the C3 vertebral body and anterior bridging osteophyte with marrow edema and no retropulsion. No extradural fluid collections or hematoma identified. There is antegrade vertebral soft tissue swelling. The cervical cord is intact. True Feliz MD Cervical Spine CT 12/23/17 080 Signed Impressions: Service Date/Time: November 22:34 - CONCLUSION: 1. Oblique fracture through the C3 vertebral body and the exuberant osteophytes anteriorly at the C2-3 level. 2. Exuberant fused osteophytes extending from C2-T2 with an articulation at the T1-T2 level. There is acute fracture at the C2-3 level through these osteophytes. 3. Degenerative change as described above. This information was relayed by telephone to Dr. Barrera. Triston Edmondson MD Head CT 12/23/17 2189 Signed Impressions: Service Date/Time: November 22:34 - CONCLUSION: 1. No acute intracranial abnormality. 2. Atrophy. 3. Frontal scalp hematomas being worse on the right. Triston Edmondson MD Assessment and Plan Problem List: (1) Wide QRS ventricular tachycardia ICD Codes: I47.2 - Ventricular tachycardia Status: Acute Plan: No further wide complex tachycardia. Bradycardic with a 3.4 second pauses seen on telemetry overnight, atrial flutter. Will hold carvedilol this morning and resumed this evening at 6.25 mg p.o. twice daily per my discussion with Dr. Glover. (2) CAD (coronary artery disease) ICD Codes: I25.10 - Atherosclerotic heart disease of [place] coronary artery without angina pectoris Status: Chronic Plan: Nuclear negative for reversible changes. Ejection fraction appears to be misreported when compared to echocardiogram. Stable from cardiac standpoint , no chest pain Problem Qualifiers (1) CAD (coronary artery disease): Qualified Codes: I25.10 - Atherosclerotic heart disease of [place] coronary artery without angina pectoris Milena Lewis Dec 31, 2017 08:05
[2017-12-31] MEDS: SODIUM CHLORIDE 0.9% FLUSH 10 ML FLUSH IV FLUSH SCH (08:22)
[2017-12-31] MEDS: ENOXAPARIN SODIUM 40 MG/0.4 ML SYRINGE SQ SCH (08:23)
[2017-12-31] MEDS: CARVEDILOL 12.5 MG TAB PO SCH (08:26)
[2017-12-31] MEDS: ASPIRIN EC 81 MG TABEC PO SCH (08:26)
[2017-12-31] MEDS: DOCUSATE SODIUM 50 MG/SENNA 8.6 MG TAB PO SCH (08:27)
[2017-12-31] MEDS: ALLOPURINOL 300 MG TAB PO SCH (08:27)
[2017-12-31] MEDS: PANTOPRAZOLE SOD 40 MG DELAYED RELEASE TAB PO SCH (08:27)
[2017-12-31] MEDS: ENALAPRIL MALEATE 10 MG TAB PO SCH (08:28)
--- NOTE | 2017-12-31 10:19 | HHI.NSPN ---
History Chief Complaint: Pt states neck pain controlled. Interval History 12/24: An 82-year-old gentleman, who presented to [facility] Emergency Room last evening after he was dragged by his large dog, was chasing another dog, fell forward and was dragged about 15 feet with his head on the grass. He denies loss of consciousness. He complains of neck pain, but denies any radiation to the upper or lower extremities. He has chronic low back pain. The CT scan of the cervical spine obtained reveals what appears to be an ankylosing spondylitis. Fusion extends from C2-C7 level with anterior osteophytes and fusion as well as facet fusion. There is a fracture that extends from the inferior aspect of the C2 vertebral body anterior osteophyte through the mid body of the C3 and also involving the right C3 facet consistent with an ankylosing spondylitis break. He was maintained in a cervical collar and transferred to [facility] main intensive care unit for further management. Overnight, he has not had any change in symptoms. He denies feeling lightheaded or dizzy either prior to or subsequent to this fall. He was very hypertensive in the emergency room and was placed on a Cardene drip after p.r.n. IV medications were not effective in controlling his hypertension. He is also on Coumadin for his atrial fibrillation. CT of the head is negative for any intracranial abnormality. 12/25: The patient is sitting up in the chair when seen this afternoon. The only time he has pain to the back of the neck is if he will move it some, then he will have a little pain that lasts for a brief time and resolves on its own. He denies any continuous midline neck pain. He denies any headache or dizziness. He has no pain, numbness or tingling to the extremities. He is neurologically intact when examined. 12/26: The patient has been transferred to a regular med/surg floor since he was last seen. He was in bed "half asleep" but woke up to voice. After that he was alert. He has occasional pain to the neck briefly if he moves it and it will resolve without intervention. He has no headache, dizziness or visual problems. He denies any extremity pain, numbness or tingling. There is no change in his neuro exam upon evaluation. 12/27/17: Pt awake and alert. Sitting up in chair. States neck pain controlled. He denies any radiculopathy or paresthesias in UEs. He moves UEs with good strength. Right periorbital edema improved. 12/28/17: Pt awake and alert. Sitting up in chair. States occasional neck twinge but no radiculopathy or paresthesias in UEs. No weakness in UEs. 12/29/17: Pt awake and alert. Sitting up in chair. States neck discomfort very tolerable, only occasional twinge. No radiculopathy or paresthesias in UEs. 12/30/17: Pt awake and alert. Sitting up in chair. No neck pain other than occasional twinge he reports. He denies any chest pain, sob, or dizziness. 12/31/17: Pt awake and alert. Sitting up in chair. No neck pain other than occasional twinge. He denies any radiculopathy or paresthesias in UEs. He states he will be very compliant with wearing cervical collar. Review of Systems General: Negative for: fever, chills, insomnia Respiratory: Negative for: shortness of breath, cough, sputum Cardiovascular: Negative for: chest pain Gastrointestinal: Negative for: nausea, vomitting, diarrhea, constipation Exam Results Vital Signs Date Time Temp Pulse Resp B/P (MAP) Pulse Ox O2 Delivery O2 Flow Rate FiO2 12/31/17 08:00 97.8 56 18 134/66 (88) 97 12/30/17 18:10 21 Physical Examination General: Pt sitting up in chair with cervical collar in place in NAD. Eyes: Right periorbital edema improved. Pupils equal. Sclera anicteric. Right periorbital ecchymosis present. Resp: CTA bilaterally Heart: NSR no murmurs Abd: Soft positive bs Skin: Right forehead ecchymosis and edema. Right periorbital ecchymosis. Muscle: Moves all 4 extremities with good strength. [place] cervical collar in place. Neuro: Pt awake and alert. Sitting up in chair. Follows commands well. Sensation intact in UEs. Speech fluent and comprehension good. Lab, Micro, Other Results Last Impressions Myocardial Perfusion Scan Nuc Med 12/28/17 0000 Signed Impressions: Service Date/Time: Thursday, December 28, 2017 14:02 - CONCLUSION: Global hypokinesis with dyskinesia at the apex and a decreased ejection fraction of 33%%. Moderate size marked severity fixed defects involving the apical segment of the anterior wall and the apex. No reversible ischemic segments are identified. RISK CATEGORY: High (>3%% Annual Mortality Rate) Dinh Fajardo MD Carotid Artery Ultrasound 12/25/17 0000 Signed Impressions: Service Date/Time: Monday, December 25, 2017 17:51 - CONCLUSION: No evidence for hemodynamically significant stenosis of either carotid artery. Unable to visualize the right vertebral artery. Angel Luis Elias MD Chest X-Ray 12/24/17 0000 Signed Impressions: Service Date/Time: Sunday, December 24, 2017 00:48 - CONCLUSION: No acute abnormality demonstrated. Triston Marks MD Cervical Spine MRI 12/24/17 0000 Signed Impressions: Service Date/Time: Sunday, December 24, 2017 13:37 - CONCLUSION: Oblique fracture again noted through the C3 vertebral body and anterior bridging osteophyte with marrow edema and no retropulsion. No extradural fluid collections or hematoma identified. There is antegrade vertebral soft tissue swelling. The cervical cord is intact. True Feliz MD Cervical Spine CT 12/23/172203 Signed Impressions: Service Date/Time: November 22:34 - CONCLUSION: 1. Oblique fracture through the C3 vertebral body and the exuberant osteophytes anteriorly at the C2-3 level. 2. Exuberant fused osteophytes extending from C2-T2 with an articulation at the T1-T2 level. There is acute fracture at the C2-3 level through these osteophytes. 3. Degenerative change as described above. This information was relayed by telephone to Dr. Barrera. Triston Edmondson MD Head CT 12/23/171 Signed Impressions: Service Date/Time: November 22:34 - CONCLUSION: 1. No acute intracranial abnormality. 2. Atrophy. 3. Frontal scalp hematomas being worse on the right. Triston Edmondson MD Medical Decision Making Impression and Plan A: 82 y/o M with C3 ankylosing spondylitis fracture extending through the anterior to posterior aspect of vertebral body as well as right-sided facet. This is an unstable fracture. 2. Chronic dysphagia with esophageal strictures, despite multiple esophageal dilation attempts, along with some hoarseness. 3. Chronic atrial fibrillation, on Coumadin therapy. 4. Coronary artery disease, status post coronary artery bypass grafting with complaints of dyspnea with exertion. 5. Diabetes mellitus. 6. Unregulated hypertension. Plan: Continue with cervical collar Continue to get oob and ambulate with PT Cardiology note reviewed. We will continue with cervical collar for now and pts anticoagulation has been resumed. Pt will follow up every 6 weeks with follow up x-rays. Discussed with pt importance of wearing cervical collar at all times and the restrictions of no pushing, pulling, lifting, or carrying anything. He cannot drive and should stay out of a vehicle as a passenger unless he needs to see his physicians. He also needs to be careful not to trip or slip as the collar will provide some protection but he still is at risk with a severe fall or car accident. Pt understands and agrees. Neurosurgically stable for discharge when cleared medically. Umang Spivey Dec 31, 2017 10:19 am
[2017-12-31 12:00] VITALS: BP 110/59; PULSE 46; RESP 18; TEMP 98.2; O2SAT 96
--- NOTE | 2017-12-31 12:06 | HHI.FF ---
Face to Face Verification Diagnosis: (1) Fall, initial encounter (2) Cervical spine fracture Physical Therapy Order: Evaluate and Treat, Improve ambulation, Strength and gait training Home Health Nursing Order: Nursing assessment with vital signs I have seen patient Triston Castillo on 12/31/17. My clinical findings support the need for the requested home health care services because: Limited ability to care for self High risk of falls I certify that my clinical findings support that this patient is homebound because: Unsteady gait/balance Baldev Palma Dec 31, 2017 12:06
[2017-12-31 13:05] VITALS: O2SAT 96
--- NOTE | 2017-12-31 14:24 | HHI.DS ---
Discharge Summary Admission Date Dec 23, 2017 at 23:17 Discharge Date: Dec 31, 2017 Admitting Diagnosis Fracture C2-3, scalp abrasions (1) Scalp hematoma ICD Codes: S00.03XA - Contusion of scalp, initial encounter Diagnosis: Principal Status: Acute (2) Cervical spine fracture ICD Codes: S12.9XXA - Fracture of neck, unspecified, initial encounter Diagnosis: Principal Status: Acute (3) CAD (coronary artery disease) ICD Codes: I25.10 - Atherosclerotic heart disease of [place] coronary artery without angina pectoris Diagnosis: Principal Status: Chronic Brief History Fall. CBC/BMP: 12/29/17 0321 12/29/17 0321 Significant Findings Laboratory Tests Test 12/29/17 03:21 Neutrophils (%) (Auto) 80.2 % (16.0-70.0) Lymphocytes (%) (Auto) 8.9 % (9.0-44.0) Neutrophils # (Auto) 8.4 TH/MM3 (1.8-7.7) Lymphocytes # (Auto) 0.9 TH/MM3 (1.0-4.8) Blood Urea Nitrogen 30 MG/DL (7-18) Creatinine 1.52 MG/DL (0.60-1.30) Estimat Glomerular Filtration Rate 44 ML/MIN (>89) Imaging Last Impressions Myocardial Perfusion Scan Nuc Med 12/28/17 0000 Signed Impressions: Service Date/Time: Thursday, December 28, 2017 14:02 - CONCLUSION: Global hypokinesis with dyskinesia at the apex and a decreased ejection fraction of 33%%. Moderate size marked severity fixed defects involving the apical segment of the anterior wall and the apex. No reversible ischemic segments are identified. RISK CATEGORY: High (>3%% Annual Mortality Rate) Dinh Fajardo MD Carotid Artery Ultrasound 12/25/17 0000 Signed Impressions: Service Date/Time: Monday, December 25, 2017 17:51 - CONCLUSION: No evidence for hemodynamically significant stenosis of either carotid artery. Unable to visualize the right vertebral artery. Angel Luis Elias MD Chest X-Ray 12/24/17 0000 Signed Impressions: Service Date/Time: Sunday, December 24, 2017 00:48 - CONCLUSION: No acute abnormality demonstrated. Triston Marks MD Cervical Spine MRI 12/24/17 0000 Signed Impressions: Service Date/Time: Sunday, December 24, 2017 13:37 - CONCLUSION: Oblique fracture again noted through the C3 vertebral body and anterior bridging osteophyte with marrow edema and no retropulsion. No extradural fluid collections or hematoma identified. There is antegrade vertebral soft tissue swelling. The cervical cord is intact. True Feliz MD Cervical Spine CT 12/23/174 Signed Impressions: Service Date/Time: November 22:34 - CONCLUSION: 1. Oblique fracture through the C3 vertebral body and the exuberant osteophytes anteriorly at the C2-3 level. 2. Exuberant fused osteophytes extending from C2-T2 with an articulation at the T1-T2 level. There is acute fracture at the C2-3 level through these osteophytes. 3. Degenerative change as described above. This information was relayed by telephone to Dr. Barrera. Triston Edmondson MD Head CT 12/23/172 Signed Impressions: Service Date/Time: November 22:34 - CONCLUSION: 1. No acute intracranial abnormality. 2. Atrophy. 3. Frontal scalp hematomas being worse on the right. Triston Edmondosn MD PE at Discharge GENERAL: This is a 82-year-old male OOB in chair the cervical collar in place. SKIN: Warm and dry. Right scalp hematoma. HEAD: Normocephalic. EYES: Pupils equal and round. No scleral icterus. ENT: No nasal bleeding or discharge. Mucous membranes pink and moist. NECK: Trachea midline. No JVD. [place] J collar in place. CARDIOVASCULAR: Regular rate and rhythm. RESPIRATORY: No accessory muscle use. Lungs are clear to auscultation. Breath sounds equal bilaterally. GASTROINTESTINAL: Abdomen soft, non-tender, nondistended. MUSCULOSKELETAL: Extremities without cyanosis, or edema. + perfused, MAEW. NEUROLOGICAL: Awake and alert. Normal speech. Hospital Course [place]: Fell from the standing position when his dog pulled on the leash and was dragged on the ground for 12-15 feet. No LOC. On Coumadin for A-fib. INJURIES: Scalp hematoma C2-3 fxs PMHx: A-fib, arthritis, CAD, DM, HLD, HTN, [place] x3, CABG in 2004, gout Scalp hematoma Supportive care C2-3 fxs Neurosurgery consulted, follow-up as outpatient [place] J collar Nonoperative management Pain control Bowel regimen OOB- PT ordered No heavy lifting, no driving Coumadin dose resumed HTN, Afib Home meds resumed: Norvasc, Coreg, Vasotec Cardiology consulted for surgical clearance 12/28: Myocardial perfusion scan - HIGH risk Patient had an episode of wide-complex tachycardia -asymptomatic, self-limiting , and nonsustained Dr. Glover consulted for wide-complex tachycardia -plan: May need EP study in the future, follow-up outpatient Follow-up with PCP in 1 week Plan of care discussed with patient and RN at bedside. Collaborating Trauma MD agrees with plan. Case management consulted to assist with discharge planning. Patient is clear from trauma surgery standpoint to safely discharge home with home health care. Pt Condition on Discharge: Stable Discharge Disposition: Disch w/ Home Health Serv Discharge Instructions DIET: Follow Instructions for: Heart Healthy Diet, Diabetic Diet Activities you can perform: Regular-No Restrictions, Full Weight Bearing Activities to Avoid: Concussion Sports, Contact Sports, Lifting/Bending, Prolonged Standing, Strenuous Activity, Driving Other Activity Instructions: Cervical collar at all times. No pushing. No pulling. No lifting. No carrying ANYTHING. No driving. Baldev Palma Dec 31, 2017 14:24
[2017-12-31] MEDS ORDERED: CARVEDILOL 6.25 MG TAB PO SCH (18:30)
== END 2017-12-31 15:40 | disposition home or self-care (01) | DRG 552 ==
LOC: PHED 21:20 → PHEDA 23:17 → N03A 12-24 02:46 → N05B 12-25 18:49
PROVIDERS: ADMIT Surgery; ATTEND Surgery
DX: S12.290A Other displaced fracture of third cervical vertebra, initial encounter for closed fracture (principal); I47.2 Ventricular tachycardia; J44.9 Chronic obstructive pulmonary disease, unspecified; I48.92 Unspecified atrial flutter; I48.2 Chronic atrial fibrillation; K22.2 Esophageal obstruction; R00.1 Bradycardia, unspecified; E11.9 Type 2 diabetes mellitus without complications; M45.2 Ankylosing spondylitis of cervical region; G89.29 Other chronic pain; W01.0XXA Fall on same level from slipping, tripping and stumbling without subsequent striking against object, initial encounter; Y93.K1 Activity, walking an animal; Y92.9 Unspecified place or not applicable; S00.01XA Abrasion of scalp, initial encounter; S00.03XA Contusion of scalp, initial encounter; Y99.9 Unspecified external cause status; M54.5 Low back pain; M25.78 Osteophyte, vertebrae; I10 Essential (primary) hypertension; I25.10 Atherosclerotic heart disease of native coronary artery without angina pectoris; K21.9 Gastro-esophageal reflux disease without esophagitis; M10.9 Gout, unspecified; I87.8 Other specified disorders of veins; E78.5 Hyperlipidemia, unspecified; M19.90 Unspecified osteoarthritis, unspecified site; N40.0 Benign prostatic hyperplasia without lower urinary tract symptoms; R49.0 Dysphonia; Z86.73 Personal history of transient ischemic attack (TIA), and cerebral infarction without residual deficits; Z85.828 Personal history of other malignant neoplasm of skin; Z79.01 Long term (current) use of anticoagulants; Z85.46 Personal history of malignant neoplasm of prostate; Z87.891 Personal history of nicotine dependence; Z82.49 Family history of ischemic heart disease and other diseases of the circulatory system; Z95.1 Presence of aortocoronary bypass graft; I25.2 Old myocardial infarction; Z79.82 Long term (current) use of aspirin; Z79.84 Long term (current) use of oral hypoglycemic drugs
CPT/HCPCS: 51702; 70450; 71045; 72125; 72141; 78452; 80048; 80053; 81001; 82550; 82948; 83735; 84100; 85025; 85027; 85610; 85730; 87641; 93005; 93017; 93306; 93880; 94150; 96374; 96375; A9502; J0360; J1650; J2785; J7050; L0150; L0172